=== PATIENT | male | born 1975 | race Caucasian/White ===

== ENCOUNTER 2021-01-29 20:17 | Emergency (ER) | payer OTHER ==
[2021-01-29] MEDS ORDERED: SODIUM CHLORIDE 0.9% 1,000 ML IV STA ×2 (20:45)
[2021-01-29 21:21] LABS: Basophils % (A) 1 %; Eosinophils % (A) 0 %; HCT 44.1 % (39.0-53.0); HGB 15.5 gm/dL (13.0-17.5); Lymphocytes # (A) 1.7 k/uL (1.0-4.8); Lymphocytes % (A) 31 %; MCH 31.1 pg (25.0-35.0); MCHC 35.1 g/dL (31.0-37.0); MCV 88.6 fL (80.0-100.0); Mean Platelet Volume 7.5; Monocytes # (A) 0.4 k/uL (0-1.0); Monocytes % (A) 7 %; Neutrophils # (A) 3.2 k/uL (1.3-7.7); Neutrophils % (A) 60 %; Platelet Count 129 k/uL (150-450); RBC 4.98 m/uL (4.30-5.90); RDW 12.1 % (11.5-15.5); WBC 5.4 k/uL (3.8-10.6)
--- NOTE | 2021-01-29 21:32 | ED ---
SOB HPI - General Chief Complaint: Shortness of Breath Stated Complaint: SOB/Covid Time Seen by Provider: 01/29/21 20:35 Source: patient Mode of arrival: ambulatory Limitations: no limitations - History of Present Illness Initial Comments: This is a 45-year-old male with a history of recent exposure to both his parents who have Covid 19 with his father being diagnosed week ago and his mother being diagnosed admitted yesterday who presents with complaints of 3 or 4 days of shortness of breath with a cough and some fatigue he feels that he has the same symptoms his parents had as he is a same symptoms he also has a some smell. He does have a history of heart disease. He has had CHF in the past. MD Complaint: shortness of breath - Related Data Allergies Allergy/AdvReac Type Severity Reaction Status Date / Time albuterol Allergy Swelling Verified 01/29/21 20:24 Review of Systems ROS Statement: Those systems with pertinent positive or pertinent negative responses have been documented in the HPI. ROS Other: All systems not noted in ROS Statement are negative. Past Medical History Past Medical History: Atrial Fibrillation, Heart Failure, Diabetes Mellitus Additional Past Medical History / Comment(s): Renal Cancer, blood clot in heart History of Any Multi-Drug Resistant Organisms: None Reported Past Surgical History: Cardiac Ablation, Orthopedic Surgery Past Psychological History: No Psychological Hx Reported Smoking Status: Former smoker Past Alcohol Use History: None Reported Past Drug Use History: None Reported General Exam - General Exam Comments Initial Comments: Is a well-developed well-nourished awake alert oriented times 3 male Limitations: no limitations General appearance: alert, in no apparent distress Head exam: Present: atraumatic, normocephalic, normal inspection Eye exam: Present: normal appearance, PERRL, EOMI. Absent: scleral icterus, conjunctival injection, periorbital swelling ENT exam: Present: mucous membranes dry Neck exam: Present: normal inspection. Absent: tenderness, meningismus, lymphadenopathy Respiratory exam: Present: decreased breath sounds. Absent: respiratory distress, wheezes, rales, rhonchi, stridor Cardiovascular Exam: Present: normal rhythm, tachycardia, normal heart sounds. Absent: systolic murmur, diastolic murmur, rubs, gallop, clicks GI/Abdominal exam: Present: soft, normal bowel sounds. Absent: distended, tenderness, guarding, rebound, rigid Extremities exam: Present: normal inspection, full ROM, normal capillary refill. Absent: tenderness, pedal edema, joint swelling, calf tenderness Back exam: Present: normal inspection Neurological exam: Present: alert, oriented X3, CN II-XII intact Psychiatric exam: Present: normal affect, normal mood Skin exam: Present: warm, dry, intact, normal color. Absent: rash Course Vital Signs 01/29/21 01/29/21 01/29/21 20:20 22:25 23:00 Temperature 99.6 F Pulse Rate 132 H 104 H 108 H Respiratory 22 20 18 Rate Blood Pressure 126/87 135/88 119/80 O2 Sat by Pulse 98 97 96 Oximetry Medical Decision Making - Medical Decision Making I did discuss Pfizer the patient x-rays negative d-dimer is negative and his saturations were in the 9798 range on room air. Patient is a candidate for discharge she will be getting the antibody Bamlanivimab. We did a long discussion regarding the findings and the possible side effects of the medi cation he is going to go ahead with that. - Lab Data Result diagrams: 01/29/21 21:08 01/29/21 21:08 Lab Results 01/29/21 01/29/21 01/29/21 Range/Units 21:08 21:08 21:08 WBC 5.4 (3.8-10.6) k/uL RBC 4.98 (4.30-5.90) m/uL Hgb 15.5 (13.0-17.5) gm/dL Hct 44.1 (39.0-53.0) % MCV 88.6 (80.0-100.0) fL MCH 31.1 (25.0-35.0) pg MCHC 35.1 (31.0-37.0) g/dL RDW 12.1 (11.5-15.5) % Plt Count 129 L (150-450) k/uL MPV 7.5 Neutrophils % 60 % Lymphocytes % 31 % Monocytes % 7 % Eosinophils % 0 % Basophils % 1 % Neutrophils # 3.2 (1.3-7.7) k/uL Lymphocytes # 1.7 (1.0-4.8) k/uL Monocytes # 0.4 (0-1.0) k/uL Eosinophils # 0.0 (0-0.7) k/uL Basophils # 0.0 (0-0.2) k/uL PT (9.0-12.0) sec INR (<1.2) APTT (22.0-30.0) sec D-Dimer (<0.60) mg/L FEU Sodium 131 L (137-145) mmol/L Potassium 3.9 (3.5-5.1) mmol/L Chloride 101 (98-107) mmol/L Carbon Dioxide 18 L (22-30) mmol/L Anion Gap 12 mmol/L BUN 16 (9-20) mg/dL Creatinine 1.09 (0.66-1.25) mg/dL Est GFR (CKD-EPI)AfAm >90 (>60 ml/min/1.73 sqM) Est GFR (CKD-EPI)NonAf 82 (>60 ml/min/1.73 sqM) Glucose 296 H (74-99) mg/dL Plasma Lactic Acid Prudencio 1.4 (0.7-2.0) mmol/L Calcium 8.6 (8.4-10.2) mg/dL Magnesium 1.6 (1.6-2.3) mg/dL Total Bilirubin 1.0 (0.2-1.3) mg/dL AST 169 H (17-59) U/L ALT 133 H (4-49) U/L Alkaline Phosphatase 87 (38-126) U/L Lactate Dehydrogenase 733 H (313-618) U/L Creatine Kinase 112 (55-170) U/L Troponin I (0.000-0.034) ng/mL C-Reactive Protein 14.3 H (<10.0) mg/L NT-Pro-B Natriuret Pep pg/mL Total Protein 6.9 (6.3-8.2) g/dL Albumin 4.0 (3.5-5.0) g/dL Coronavirus (PCR) (Not Detectd) 01/29/21 01/29/21 01/29/21 Range/Units 21:08 21:08 21:08 WBC (3.8-10.6) k/uL RBC (4.30-5.90) m/uL Hgb (13.0-17.5) gm/dL Hct (39.0-53.0) % MCV (80.0-100.0) fL MCH (25.0-35.0) pg MCHC (31.0-37.0) g/dL RDW (11.5-15.5) % Plt Count (150-450) k/uL MPV Neutrophils % % Lymphocytes % % Monocytes % % Eosinophils % % Basophils % % Neutrophils # (1.3-7.7) k/uL Lymphocytes # (1.0-4.8) k/uL Monocytes # (0-1.0) k/uL Eosinophils # (0-0.7) k/uL Basophils # (0-0.2) k/uL PT 10.0 (9.0-12.0) sec INR 0.9 (<1.2) APTT 26.6 (22.0-30.0) sec D-Dimer 0.28 (<0.60) mg/L FEU Sodium (137-145) mmol/L Potassium (3.5-5.1) mmol/L Chloride (98-107) mmol/L Carbon Dioxide (22-30) mmol/L Anion Gap mmol/L BUN (9-20) mg/dL Creatinine (0.66-1.25) mg/dL Est GFR (CKD-EPI)AfAm (>60 ml/min/1.73 sqM) Est GFR (CKD-EPI)NonAf (>60 ml/min/1.73 sqM) Glucose (74-99) mg/dL Plasma Lactic Acid Prudencio (0.7-2.0) mmol/L Calcium (8.4-10.2) mg/dL Magnesium (1.6-2.3) mg/dL Total Bilirubin (0.2-1.3) mg/dL AST (17-59) U/L ALT (4-49) U/L Alkaline Phosphatase (38-126) U/L Lactate Dehydrogenase (313-618) U/L Creatine Kinase (55-170) U/L Troponin I <0.012 (0.000-0.034) ng/mL C-Reactive Protein (<10.0) mg/L NT-Pro-B Natriuret Pep 103 pg/mL Total Protein (6.3-8.2) g/dL Albumin (3.5-5.0) g/dL Coronavirus (PCR) (Not Detectd) 01/29/21 Range/Units 21:08 WBC (3.8-10.6) k/uL RBC (4.30-5.90) m/uL Hgb (13.0-17.5) gm/dL Hct (39.0-53.0) % MCV (80.0-100.0) fL MCH (25.0-35.0) pg MCHC (31.0-37.0) g/dL RDW (11.5-15.5) % Plt Count (150-450) k/uL MPV Neutrophils % % Lymphocytes % % Monocytes % % Eosinophils % % Basophils % % Neutrophils # (1.3-7.7) k/uL Lymphocytes # (1.0-4.8) k/uL Monocytes # (0-1.0) k/uL Eosinophils # (0-0.7) k/uL Basophils # (0-0.2) k/uL PT (9.0-12.0) sec INR (<1.2) APTT (22.0-30.0) sec D-Dimer (<0.60) mg/L FEU Sodium (137-145) mmol/L Potassium (3.5-5.1) mmol/L Chloride (98-107) mmol/L Carbon Dioxide (22-30) mmol/L Anion Gap mmol/L BUN (9-20) mg/dL Creatinine (0.66-1.25) mg/dL Est GFR (CKD-EPI)AfAm (>60 ml/min/1.73 sqM) Est GFR (CKD-EPI)NonAf (>60 ml/min/1.73 sqM) Glucose (74-99) mg/dL Plasma Lactic Acid Prudencio (0.7-2.0) mmol/L Calcium (8.4-10.2) mg/dL Magnesium (1.6-2.3) mg/dL Total Bilirubin (0.2-1.3) mg/dL AST (17-59) U/L ALT (4-49) U/L Alkaline Phosphatase (38-126) U/L Lactate Dehydrogenase (313-618) U/L Creatine Kinase (55-170) U/L Troponin I (0.000-0.034) ng/mL C-Reactive Protein (<10.0) mg/L NT-Pro-B Natriuret Pep pg/mL Total Protein (6.3-8.2) g/dL Albumin (3.5-5.0) g/dL Coronavirus (PCR) Detected A (Not Detectd) - EKG Data -: EKG Interpreted by Me EKG Comments: Sinus tachycardia rate of 116. Interval 146 QRS duration 84 daily since QTC 340/472 with anterior fascicular block evidence of LVH - Radiology Data Radiology results: report reviewed (Imaging reviewed no acute findings.), image reviewed Disposition Clinical Impression: COVID-19, Viral syndrome Disposition: HOME SELF-CARE Condition: Good Instructions (If sedation given, give patient instructions): Coronavirus Disease 2019 (COVID-19) Additional Instructions: Vitamin C 1000 mg daily, vitamin D3 4-5000 units per day, zinc, adequate fluids and Tylenol for pain or symptoms. Is patient prescribed a controlled substance at d/c from ED?: No Referrals: None,Stated [REFERRING] - 1-2 days
[2021-01-29 21:39] LABS: ALT 133 U/L (4-49); AST 169 U/L (17-59); African American GFR (CKD) >90 (>60 ml/min/1.73 sqM); Alkaline Phosphatase 87 U/L (38-126); Anion Gap 12 mmol/L; Blood Urea Nitrogen 16 mg/dL (9-20); C Reactive Protein 14.3 mg/L (<10.0); Calcium 8.6 mg/dL (8.4-10.2); Carbon Dioxide 18 mmol/L (22-30); Chloride 101 mmol/L (98-107); Creatine Kinase 112 U/L (55-170); Glucose 296 mg/dL (74-99); LDH 733 U/L (313-618); Magnesium 1.6 mg/dL (1.6-2.3); Non-African American GFR(CKD) 82 (>60 ml/min/1.73 sqM); Potassium 3.9 mmol/L (3.5-5.1); Sodium 131 mmol/L (137-145); Total Protein 6.9 g/dL (6.3-8.2)
--- NOTE | 2021-01-29 21:54 | XR ---
EXAMINATION TYPE: XR chest 1V portable DATE OF EXAM: 01/29/2021 COMPARISON: NONE HISTORY: Short of breath TECHNIQUE: Kobe view FINDINGS: There is no heart failure nor confluent pneumonic infiltrate. Costophrenic angles are clear . Heart size is normal. Bony thorax is intact. IMPRESSION: No active cardiopulmonary disease.
[2021-01-29 22:15] LABS: D-Dimer 0.28 mg/L FEU (<0.60); INR 0.9 (<1.2); Partial Thromboplastin Time 26.6 sec (22.0-30.0)
[2021-01-29] MEDS ORDERED: BAMLANIVIMAB 700 MG in SODIUM CHLORIDE 0.9% 50 ML IVPB ONE (23:30)
[2021-01-29 23:53] VITALS: TEMP 98.2
[2021-01-30 01:42] VITALS: BP 119/86; PULSE 97; RESP 20
[2021-01-30 03:19] LABS: Ferritin 1428.9 ng/mL (22.0-322.0)
== END 2021-01-30 01:42 | disposition home or self-care (01) ==
LOC: EC 20:17
DX: U07.1 COVID-19 (principal); B34.9 Viral infection, unspecified; E11.9 Type 2 diabetes mellitus without complications; I48.91 Unspecified atrial fibrillation; I50.9 Heart failure, unspecified; Z85.528 Personal history of other malignant neoplasm of kidney; Z87.891 Personal history of nicotine dependence
CPT/HCPCS: 36415; 93005; 85379; 83880; 80053; 82728; 82550; 83605; 83615; 83735; 84484; 85025; 85610; 85730; 86140; 87040; 84145; 87635; 71045; 99285; 96374; 96361; Q0239

== ENCOUNTER 2023-05-25 03:33 | Inpatient (IN) | payer OTHER ==
[2023-05-25] MEDS ORDERED: SODIUM CHLORIDE 0.9% 1,000 ML IV STA (03:53)
[2023-05-25] MEDS ORDERED: MORPHINE SULFATE 4 MG/ML SYRINGE IV STA ×2 (03:53→04:57)
[2023-05-25] MEDS ORDERED: NITROGLYCERIN SL TABS 0.4 MG TAB SUBLINGUAL STA (03:53)
[2023-05-25] MEDS ORDERED: ASPIRIN 81 MG PO STA (03:53)
[2023-05-25 04:43] LABS: Basophils % (A) 0 %; Eosinophils # (A) 0.1 k/uL (0-0.7); Eosinophils % (A) 1 %; HCT 49.4 % (39.0-53.0); HGB 16.9 gm/dL (13.0-17.5); Lymphocytes # (A) 1.9 k/uL (1.0-4.8); Lymphocytes % (A) 23 %; MCH 29.7 pg (25.0-35.0); MCHC 34.3 g/dL (31.0-37.0); MCV 86.5 fL (80.0-100.0); Mean Platelet Volume 8.1; Monocytes # (A) 0.4 k/uL (0-1.0); Monocytes % (A) 5 %; Neutrophils # (A) 5.7 k/uL (1.3-7.7); Neutrophils % (A) 69 %; Platelet Count 176 k/uL (150-450); RBC 5.71 m/uL (4.30-5.90); WBC 8.3 k/uL (3.8-10.6)
[2023-05-25 04:55] LABS: ALT 67 U/L (4-49); AST 46 U/L (17-59); African American GFR (CKD) >90 (>60 ml/min/1.73 sqM); Albumin 4.2 g/dL (3.5-5.0); Alkaline Phosphatase 99 U/L (38-126); Anion Gap 15 mmol/L; Blood Urea Nitrogen 17 mg/dL (9-20); Calcium 9.4 mg/dL (8.4-10.2); Carbon Dioxide 13 mmol/L (22-30); Chloride 108 mmol/L (98-107); Glucose 306 mg/dL (74-99); INR 0.9 (<1.2); Magnesium 1.9 mg/dL (1.6-2.3); Non-African American GFR(CKD) 84 (>60 ml/min/1.73 sqM); Potassium 3.9 mmol/L (3.5-5.1); Prothrombin Time 9.6 sec (9.0-12.0); Sodium 136 mmol/L (137-145); Total Bilirubin 0.8 mg/dL (0.2-1.3); Total Protein 7.1 g/dL (6.3-8.2)
[2023-05-25] MEDS ORDERED: NITROGLYCERIN OINT 1 INCH/GM PACKET TOPICAL STA (04:57)
[2023-05-25] MEDS ORDERED: ONDANSETRON 4 MG/2 ML VIAL IVP STA (04:57)
[2023-05-25] MEDS ORDERED: INSULIN REGULAR 100 UNIT/ML VIAL (IV) SQ STA (04:58)
--- NOTE | 2023-05-25 06:41 | XR ---
EXAMINATION TYPE: XR chest 2V DATE OF EXAM: 05/25/2023 4:14 AM COMPARISON: Chest radiographs from 01/29/2021 TECHNIQUE: XR chest 2V Frontal and lateral views of the chest. CLINICAL INDICATION:Male, 47 years old with history of Chest Pain; FINDINGS: Lungs/Pleura: There is no evidence of pleural effusion, focal consolidation, or pneumothorax. Pulmonary vascularity: Unremarkable. Heart/mediastinum: Cardiomediastinal silhouette is unremarkable. Musculoskeletal: No acute osseous pathology. IMPRESSION: No acute cardiopulmonary disease/process. No significant change from prior examination.
--- NOTE | 2023-05-25 06:53 | CT ---
EXAMINATION TYPE: CT angio thor/abd pel aorta CT DLP: 2365.8 mGycm, Automated exposure control for dose reduction was used. DATE OF EXAM: 05/25/2023 6:16 AM COMPARISON: Chest radiograph of the same date. CLINICAL INDICATION:Male, 47 years old with history of pain, possible dissection; [facility], TECHNIQUE: Dissection protocol: Multiple axial CT images of the chest, abdomen, and pelvis were obtai niki prior and to the administration of IV contrast. 3-D reformats and maximum intensity projection fo rmat were performed on a separate workstation. Then the abdomen was scanned after administration of 1 00 cc of Isovue 370 IV contrast. FINDINGS: ARTERIAL VASCULATURE: The aorta is normal in course and caliber. There is no evidence of aortic disse ction, aneurysm or acute aortic injury. Great arch vessels patent and normal in course and caliber. T he celiac axis, SMA, and ROSALINO are widely patent. 2 renal arteries which are patent. The common iliac a rteries, external and internal iliac arteries are widely patent. Lungs/pleura: The lung parenchyma appears unremarkable. Heart: Within normal limits. No pericardial effusion. Mediastinum: No gross evidence of adenopathy. Lower Neck: No significant findings. Abdomen: Liver: Diffusely hypoattenuating. There is a 3.4 cm peripherally enhancing lesion within the posterio r right hepatic lobe (series 501, image 99). Gallbladder and Bile ducts: Unremarkable. Pancreas: Unremarkable. Spleen: Mildly enlarged measuring 14.5 cm in CC dimension. Adrenal glands: Unremarkable. Kidneys and Ureters: Unremarkable. No hydronephrosis. Stomach and Bowel: The stomach and small bowel are unremarkable. Colon is unremarkable. There is circ umferential wall thickening of the rectum without surrounding inflammatory changes. The appendix is w ithin normal limits. No evidence of bowel obstruction. Peritoneum: No evidence of pneumoperitoneum, free fluid, or adenopathy. Bladder: Unremarkable. Reproductive: Unremarkable. Abdominal wall/soft tissues: Unremarkable. Musculoskeletal: The osseous structures appear intact. Mild multilevel degenerative disc disease. IMPRESSION: 1. No evidence for thoracic aortic dissection or aneurysm. 2. Circumferential wall thickening of the rectum without surrounding inflammatory changes. Correlate for proctitis. 3. Mild splenomegaly. 4. Hepatic steatosis with a peripheral enhancing lesion within the right hepatic lobe. Probable heman gioma. This can be further evaluated with CT or MR abdomen (liver mass protocol).
[2023-05-25] MEDS ORDERED: NITROGLYCERIN SL TABS 0.4 MG TAB SUBLINGUAL PRN (07:54)
--- NOTE | 2023-05-25 08:03 | ED ---
Chest Pain HPI - General Chief Complaint: Chest Pain Stated Complaint: Chest Pain Time Seen by Provider: 05/25/23 03:40 Source: patient Mode of arrival: wheelchair Limitations: no limitations - History of Present Illness Initial Comments: This patient's 47-year-old man presenting evaluation for chest pain, substernal with radiation to the back had come on approximately 8 hours ago the patient was at rest there is no exertional component. He does not have any associated dyspnea, diaphoresis. There was some associated nausea. MD Complaint: chest pain Onset/Timin -: hour(s) Onset: during rest Pain Location: substernal Pain Radiation: back Severity: severe Quality: sharp Consistency: constant Improves With: nothing Worsens With: nothing Anginal Symptoms: nausea Treatments Prior to Arrival: none - Related Data Home Medications Medication Instructions Recorded Confirmed Apixaban [Eliquis] 5 mg PO BID 05/25/23 05/25/23 Atorvastatin [Lipitor] 10 mg PO DAILY 05/25/23 05/25/23 Cholecalciferol [Vitamin D3 (25 25 mcg PO DAILY 05/25/23 05/25/23 Mcg = 1000 Iu)] Cyanocobalamin (Vitamin B-12) 1,000 mcg PO DAILY 05/25/23 05/25/23 [Vitamin B-12] Empagliflozin [Jardiance] 25 mg PO DAILY 05/25/23 05/25/23 Fish Oil/Dha/Epa [Fish Oil 1,200 1 cap PO DAILY 05/25/23 05/25/23 mg Fish Oil] Gabapentin 600 mg PO TID PRN 05/25/23 05/25/23 HYDROcodone/APAP 5-325MG [Wadley 1 tab PO TID PRN 05/25/23 05/25/23 5-325] Insulin Aspart [NovoLOG Flexpen] 40 units SQ AC-SUPPER 05/25/23 05/25/23 Insulin Aspart [NovoLOG Flexpen] 60 units SQ AC-BRKFST 05/25/23 05/25/23 Insulin Glargine,Hum.rec.anlog 38 units SQ HS 05/25/23 05/25/23 [Lantus Solostar Pen] Metoprolol Succinate (ER) [Toprol 50 mg PO DAILY 05/25/23 05/25/23 XL] PARoxetine HCL [Paxil] 10 mg PO DAILY 05/25/23 05/25/23 hydrALAZINE HCL [Apresoline] 10 mg PO TID 05/25/23 05/25/23 hydrOXYzine pamoate [Vistaril] 25 mg PO QID PRN 05/25/23 05/25/23 methocarbamoL [Methocarbamol] 500 - 1,000 mg PO QID PRN 05/25/23 05/25/23 Previous Rx's Medication Instructions Recorded Amoxic-Pot Clav 875-125Mg 1 tab PO Q12HR 5 Days #10 tab 06/01/23 [Augmentin 875-125] HYDROcodone/APAP 5-325MG [Wadley 1 tab PO Q6HR PRN 3 Days #12 tab 06/01/23 5-325] Allergies Allergy/AdvReac Type Severity Reaction Status Date / Time No Known Allergies Allergy Verified 05/29/23 12:16 Review of Systems ROS Statement: Those systems with pertinent positive or pertinent negative responses have been documented in the HPI. ROS Other: All systems not noted in ROS Statement are negative. Constitutional: Denies: fever, chills Respiratory: Denies: cough, dyspnea Cardiovascular: Reports: chest pain. Denies: palpitations, orthopnea, edema, syncope Gastrointestinal: Reports: nausea. Denies: abdominal pain, vomiting, diarrhea, melena, hematochezia Genitourinary: Denies: dysuria, hematuria Musculoskeletal: Reports: back pain Skin: Denies: rash Neurological: Denies: headache, weakness EKG Findings - EKG Results: EKG: interpreted by ERMD, sinus rhythm (Rate 78 bpm), normal axis Past Medical History Past Medical History: Atrial Fibrillation, Heart Failure, Diabetes Mellitus Additional Past Medical History / Comment(s): Renal Cancer, blood clot in heart History of Any Multi-Drug Resistant Organisms: None Reported Past Surgical History: Cardiac Ablation, Orthopedic Surgery Past Psychological History: No Psychological Hx Reported Smoking Status: Former smoker Past Alcohol Use History: None Reported Past Drug Use History: None Reported General Exam Limitations: no limitations General appearance: alert, in no apparent distress Head exam: Present: atraumatic, normocephalic Eye exam: Present: normal appearance. Absent: scleral icterus, conjunctival injection ENT exam: Present: normal oropharynx Neck exam: Present: normal inspection, full ROM Respiratory exam: Present: normal lung sounds bilaterally. Absent: respiratory distress, wheezes, rales, rhonchi, stridor, accessory muscle use Cardiovascular Exam: Present: regular rate, normal rhythm, normal heart sounds. Absent: systolic murmur, diastolic murmur, rubs, gallop GI/Abdominal exam: Present: soft, tenderness (Mild epigastric tenderness, no rebound or guarding). Absent: distended, guarding, rebound, rigid, mass Extremities exam: Present: normal inspection, normal capillary refill. Absent: pedal edema, calf tenderness Back exam: Present: normal inspection. Absent: CVA tenderness (R), CVA tenderness (L) Neurological exam: Present: alert Skin exam: Present: warm, dry, intact, normal color. Absent: rash Course Vital Signs 05/25/23 05/25/23 05/25/23 03:36 04:00 04:15 Temperature 98 F Pulse Rate 86 83 66 Pulse Rate [ Pulse Oximetery ] Respiratory 18 25 H 22 Rate Blood Pressure 164/106 188/125 178/117 Blood Pressure [Right Arm] O2 Sat by Pulse 100 100 99 Oximetry 05/25/23 05/25/23 05/25/23 04:45 05:00 05:15 Temperature Pulse Rate 73 85 88 Pulse Rate [ Pulse Oximetery ] Respiratory 24 26 H 22 Rate Blood Pressure 141/78 128/98 143/103 Blood Pressure [Right Arm] O2 Sat by Pulse 100 100 100 Oximetry 05/25/23 05/25/23 05/25/23 07:41 09:02 09:57 Temperature Pulse Rate 88 82 78 Pulse Rate [ Pulse Oximetery ] Respiratory 18 18 18 Rate Blood Pressure 137/70 124/82 113/63 Blood Pressure [Right Arm] O2 Sat by Pulse 98 99 92 L Oximetry 05/25/23 05/25/23 05/25/23 11:00 14:00 16:00 Temperature Pulse Rate 68 74 70 Pulse Rate [ Pulse Oximetery ] Respiratory 18 18 18 Rate Blood Pressure 108/57 103/54 118/60 Blood Pressure [Right Arm] O2 Sat by Pulse 92 L 92 L 94 L Oximetry 05/25/23 18:55 Temperature 100.3 F H Pulse Rate Pulse Rate [ 85 Pulse Oximetery ] Respiratory 16 Rate Blood Pressure Blood Pressure 131/76 [Right Arm] O2 Sat by Pulse 97 Oximetry Chest Pain MDM - MDM The patient had chest x-ray which I interpreted as being negative for acute infiltrate, pneumothorax, congestive heart failure The patient had CT angiography of the chest, which I interpreted as not showing aortic dissection. This patient is a 47-year-old man who presented with substernal chest pain radiating to the back. The patient was also markedly hypertensive. In light of this he is sent for CT to rule out a dissection. The patient having risk factor will be admitted to have cardiology evaluation though the differential definitely includes noncardiac types of chest pain as well. Was pt. sent in by a medical professional or institution (, PA, INDUSTRIAL SOCIOLOGIST, urgent care, hospital, or longterm...) When possible be specific @ -[No] Did you speak to anyone other than the patient for history (EMS, parent, family, police, friend...)? What history was obtained from this source @ -[No] Did you review nursing and triage notes (agree or disagree)? Why? @ -[I reviewed and agree with nursing and triage notes] Were old charts reviewed (outside hosp., previous admission, EMS record, old EKG, old radiological studies, urgent care reports/EKG's, longterm records)? Report findings @ -[No old charts were reviewed] Differential Diagnosis (chest pain, altered mental status, abdominal pain women, abdominal pain men, vaginal bleeding, weakness, fever, dyspnea, syncope, headache, dizziness, GI bleed, back pain, seizure, CVA, palpatations, mental health, musculoskeletal)? @ -[Differential Chest Pain: Stable Angina, Unstable Angina, STEMI, NSTEMI Aortic Dissection, Pneumothorax, Musculoskeletal, Esophageal Spasm GERD, Cholecystitis, Pancreatitis, Zoster, this is not meant to be an all-inclusive list. EKG interpreted by me (3pts min.). @ -[As above] X-rays interpreted by me (1pt min.). @ -[As above CT interpreted by me (1pt min.). @ -[As above U/S interpreted by me (1pt. min.). @ -[None done] What testing was considered but not performed or refused? (CT, X-rays, U/S, labs)? Why? @ -[None] What meds were considered but not given or refused? Why? @ -[None] Did you discuss the management of the patient with other professionals (professionals i.e. , PA, INDUSTRIAL SOCIOLOGIST, lab, RT, psych nurse, elementary school social worker, squeezer operator, teacher, juvenile detention officer, nurse case management)? Give summary @ -[Case D/W admitting service Was smoking cessation discussed for >3mins.? @ -[No] Was critical care preformed (if so, how long)? @ -[No] Were there social determinants of health that impacted care today? How? (Homelessness, low income, unemployed, alcoholism, drug addiction, transportation, low edu. Level, literacy, decrease access to med. care, fpc, rehab)? @ -[No] Was there de-escalation of care discussed even if they declined (Discuss DNR or withdrawal of care, Hospice)? DNR status @ -[No] What co-morbidities impacted this encounter? (DM, HTN, Smoking, COPD, CAD, Cancer, CVA, ARF, Chemo, Hep., AIDS, mental health diagnosis, sleep apnea, morbid obesity)? @ -[None] Was patient admitted / discharged? Hospital course, mention meds given and route, prescriptions, significant lab abnormalities, going to OR and other pertinent info. @ -[Admitted to have serial cardiac enzymes, telemetry monitoring, cardiology consultation Undiagnosed new problem with uncertain prognosis? @ -[No] Drug Therapy requiring intensive monitoring for toxicity (Heparin, Nitro, Insulin, Cardizem)? @ -[No] Were any procedures done? @ -[No] Diagnosis/symptom? @ -[Acute chest pain, uncomplicated Hypertension, acute on chronic Acute, or Chronic, or Acute on Chronic? @ -[default] Uncomplicated (without systemic symptoms) or Complicated (systemic symptoms)? @ -[Uncomplicated Side effects of treatment? @ -[No] Exacerbation, Progression, or Severe Exacerbation? @ -[No] Poses a threat to life or bodily function? How? (Chest pain, [place], [place], pneumonia, PE, COPD, DKA, ARF, appy, cholecystitis, CVA, Diverticulitis, Homicidal, Suicidal, threat to staff... and all critical care pts) @ -[Chest pain of unknown etiology may be cardiac related, this requires further evaluation to ensure no life-threatening process Disposition Clinical Impression: Chest pain Disposition: ADMITTED IP TO THIS [facility] Condition: Stable
[2023-05-25] MEDS ORDERED: hydrOXYzine pamoate 25 MG CAP PO PRN (08:51)
[2023-05-25] MEDS ORDERED: GABAPENTIN 300 MG CAP PO PRN (08:51)
[2023-05-25] MEDS ORDERED: ASPIRIN 81 MG PO SCH (09:00)
[2023-05-25] MEDS: HYDROcodone/APAP 5-325MG 1 EACH TAB PO PRN ×3 (09:00→20:01)
[2023-05-25] MEDS: APIXABAN 5 MG TAB PO SCH ×2 (09:58→20:02)
[2023-05-25] MEDS: ATORVASTATIN 10 MG TAB PO SCH (09:58)
[2023-05-25] MEDS: METOPROLOL SUCCINATE (ER) 50 MG TAB.ER.24H PO SCH (09:59)
[2023-05-25] MEDS: PARoxetine 10 MG TAB PO SCH (09:59)
[2023-05-25 11:03] LABS: Glucose,Whole Blood 165 mg/dL (70-110)
--- NOTE | 2023-05-25 12:02 | P.CRDCN ---
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 fib ablation, a rather extensive 1 but successful He maintains sinus rhythm At that time a left atrial appendage thrombus was also noted and he was anticoagulated for this and subsequently underwent successful A. fib ablation Follow-up cardiac MRI revealed an ejection fraction of 41%, following jainism of sinus rhythm He states that he has had renal failure and renal cancer His follow-up 2-D echo shows ejection fraction of 45-50%. He is on metoprolol succinate He is also ELIQUIS Emphasized the importance of continuing with these medications Cardiac enzymes are normal EKG is normal No evidence for acute myocardial infarction The pain appears thoracic but noncardiac in nature Recommend follow-up with primary care physician as an outpatient and continue beta blockers and ELIQUIS HISTORY OF PRESENT ILLNESS: This is a 47-year-old male with a reported past medical history of atrial fibrillation, kidney cancer, cardiomyopathy, congestive heart failure, and diabetes. 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 He had his previous cardiac workup performed in [place]. We have been asked to see the patient in consultation for chest pain. Patient examined at the bedside. Patient states he has been having chest pain for the past 24 hours. He states that he gets pains like this in the past but they usually do not last this long. He denies any radiation of the pain. Denies any shortness of breath. Denies any nausea or vomiting. The patient reports he was told he had an ejection fraction of 10% in the past. He thinks he had a cardiac catheterization but cannot remember when this was. He states that he is supposed to have a "full body scan" in June at the [facility] secondary to his kidney cancer. * EKG reveals sinus mechanism with no signs of acute ischemia * Chest xray negative for acute process. * Laboratory data: WBC BC 8.3. Hemoglobin 16.9. Platelet count 176. D-dimer 0.31. Sodium 136. Potassium 3.9. BUN 17. Creatinine 1.06. Troponin negative 2. * Current home cardiac medications include Eliquis 5mg BID, hydralazine 10 mg 2 times a day, atorvastatin 10 mg daily REVIEW OF SYSTEMS: At the time of my exam: CONSTITUTIONAL: Denies fever or chills. HEENT: Denies blurred vision, vision changes, or eye pain. Denies hemoptysis CARDIOVASCULAR: Denies chest pain. Denies orthopnea. Denies PND. Denies palpitations RESPIRATORY: Denies shortness of breath. GASTROINTESTINAL: Denies abdominal pain. Denies nausea or vomiting. HEMATOLOGIC: Denies bleeding disorders. GENITOURINARY: Denies any blood in urine. SKIN: Denies pruitis. Denies rash. PHYSICAL EXAM: VITAL SIGNS: Reviewed. GENERAL: Well-developed in no acute distress. HEENT: Head is normocephalic. Pupils are equal, round. Sclerae anicteric. Mucous membranes of the mouth are moist. Neck supple. No JVD or thyromegaly LUNGS: Respirations even and unlabored. Lungs essentially clear to auscultation bilaterally. HEART: Regular rate and rhythm. S1 and S2 heard. ABDOMEN: Soft. Nondistended. Nontender. EXTREMITIES: Normal range of motion. No clubbing or cyanosis. Peripheral pulse s intact. No lower extremity edema NEUROLOGIC: Awake and alert. Oriented x 3. ASSESSMENT: Chest pain, troponin negative x 2 Kidney cancer, per patient Atrial fibrillation, per patient, type unknown Cardiomyopathy, per patient, type unknown Hyperlipidemia Diabetes PLAN: An acute coronary event has been ruled out Obtain 2D echo to assess cardiac structure and function Resume home cardiac medications Obtain medical records from patients previous hospitalizations in [place] Further recommendations pending patient course Nurse practitioner note has been reviewed by physician. Signing provider agrees with the documented findings, assessment, and plan of care. Past Medical History Past Medical History: Atrial Fibrillation, Heart Failure, Diabetes Mellitus Additional Past Medical History / Comment(s): Renal Cancer, blood clot in heart History of Any Multi-Drug Resistant Organisms: None Reported Past Surgical History: Cardiac Ablation, Orthopedic Surgery Past Psychological History: No Psychological Hx Reported Smoking Status: Former smoker Past Alcohol Use History: None Reported Past Drug Use History: None Reported Medications and Allergies Home Medications Medication Instructions Recorded Confirmed Type Apixaban [Eliquis] 5 mg PO BID 05/25/23 05/25/23 History Atorvastatin [Lipitor] 10 mg PO DAILY 05/25/23 05/25/23 History Cholecalciferol [Vitamin D3 (25 25 mcg PO DAILY 05/25/23 05/25/23 History Mcg = 1000 Iu)] Cyanocobalamin (Vitamin B-12) 1,000 mcg PO DAILY 05/25/23 05/25/23 History [Vitamin B-12] Empagliflozin [Jardiance] 25 mg PO DAILY 05/25/23 05/25/23 History Fish Oil/Dha/Epa [Fish Oil 1,200 1 cap PO DAILY 05/25/23 05/25/23 History mg Fish Oil] Gabapentin 600 mg PO TID PRN 05/25/23 05/25/23 History HYDROcodone/APAP 5-325MG [[place] 1 tab PO TID PRN 05/25/23 05/25/23 History 5-325] Insulin Aspart [NovoLOG Flexpen] 40 units SQ AC-SUPPER 05/25/23 05/25/23 History Insulin Aspart [NovoLOG Flexpen] 60 units SQ AC-BRKFST 05/25/23 05/25/23 History Insulin Glargine,Hum.rec.anlog 38 units SQ HS 05/25/23 05/25/23 History [Lantus Solostar Pen] Metoprolol Succinate (ER) [Toprol 50 mg PO DAILY 05/25/23 05/25/23 History Xl] PARoxetine HCL [Paxil] 10 mg PO DAILY 05/25/23 05/25/23 History hydrALAZINE HCL [Apresoline] 10 mg PO TID 05/25/23 05/25/23 History hydrOXYzine pamoate [Vistaril] 25 mg PO QID PRN 05/25/23 05/25/23 History methocarbamoL [Methocarbamol] 500 - 1,000 mg PO QID PRN 05/25/23 05/25/23 History Allergies Allergy/AdvReac Type Severity Reaction Status Date / Time albuterol Allergy Swelling Verified 05/25/23 08:11 Physical Exam Vitals: Vital Signs Temp Pulse Resp BP Pulse Ox 05/25/23 09:02 82 18 124/82 99 05/25/23 07:41 88 18 137/70 98 05/25/23 05:15 88 22 143/103 100 05/25/23 05:00 85 26 H 128/98 100 05/25/23 04:45 73 24 141/78 100 05/25/23 04:15 66 22 178/117 99 05/25/23 04:00 83 25 H 188/125 100 05/25/23 03:36 98 F 86 18 164/106 100 Intake and Output 05/24/23 05/25/23 05/25/23 22:59 06:59 14:59 Other: Weight 108.862 kg Results 05/25/23 04:06 05/25/23 04:06 Cardiac Enzymes 05/25/23 05/25/23 Range/Units 04:06 04:06 AST 46 (17-59) U/L Troponin I <0.012 (0.000-0.034) ng/mL Coagulation 05/25/23 Range/Units 04:06 PT 9.6 (9.0-12.0) sec APTT 24.0 (22.0-30.0) sec CBC 05/25/23 Range/Units 04:06 WBC 8.3 (3.8-10.6) k/uL RBC 5.71 (4.30-5.90) m/uL Hgb 16.9 (13.0-17.5) gm/dL Hct 49.4 (39.0-53.0) % Plt Count 176 (150-450) k/uL Comprehensive Metabolic Panel 05/25/23 Range/Units 04:06 Sodium 136 L (137-145) mmol/L Potassium 3.9 (3.5-5.1) mmol/L Chloride 108 H (98-107) mmol/L Carbon Dioxide 13 L (22-30) mmol/L BUN 17 (9-20) mg/dL Creatinine 1.06 (0.66-1.25) mg/dL Glucose 306 H (74-99) mg/dL Calcium 9.4 (8.4-10.2) mg/dL AST 46 (17-59) U/L ALT 67 H (4-49) U/L Alkaline Phosphatase 99 (38-126) U/L Total Protein 7.1 (6.3-8.2) g/dL Albumin 4.2 (3.5-5.0) g/dL Current Medications Generic Name Dose Route Start Last Admin Trade Name Freq PRN Reason Stop Dose Admin Hydrocodone Bitart/Acetaminophen 1 each 05/25/23 08:51 05/25/23 09:00 Hydrocodone/Apap 5-325mg 1 Each Tab PO 1 each TID PRN Administration Pain Apixaban 5 mg 05/25/23 09:00 Apixaban 5 Mg Tab PO BID [facility] Protocol Aspirin 81 mg 05/25/23 09:00 Aspirin 81 Mg PO DAILY [facility] Atorvastatin Calcium 10 mg 05/25/23 09:00 Atorvastatin 10 Mg Tab PO DAILY [facility] Gabapentin 600 mg 05/25/23 08:51 Gabapentin 300 Mg Cap PO TID PRN Pain Hydralazine HCl 10 mg 05/25/23 09:00 Hydralazine Hcl 10 Mg Tab PO TID [facility] Hydroxyzine Pamoate 25 mg 05/25/23 08:51 Hydroxyzine Pamoate 25 Mg Cap PO QID PRN Anxiety Sodium Chloride 1,000 mls @ 75 mls/hr 05/25/23 03:53 05/25/23 04:05 Saline 0.9% IV 05/25/23 17:12 75 mls/hr .[id number] STA Administration Metoprolol Succinate 50 mg 05/25/23 09:00 Metoprolol Succinate (Er) 50 Mg Tab.Er.24h PO DAILY [facility] Nitroglycerin 0.4 mg 05/25/23 07:54 Nitroglycerin Sl Tabs 0.4 Mg Tab SUBLINGUAL Q5M PRN Chest Pain Paroxetine HCl 10 mg 05/25/23 09:00 Paroxetine 10 Mg Tab PO DAILY [facility] Intake and Output 05/24/23 05/25/23 05/25/23 22:59 06:59 14:59 Other: Weight 108.862 kg 05/25/23 04:06 05/25/23 04:06
[2023-05-25] MEDS: hydrALAZINE HCL 10 MG TAB PO SCH ×3 (12:08→20:49)
--- NOTE | 2023-05-25 12:34 | P.HPIM ---
History of Present Illness H&P Date: 05/25/23 History of Presenting Illness: Patient is a very pleasant 47-year-old male with a past medical history of renal cancer, type 2 oof-nealaom-pgoeanbhu diabetes mellitus, hypertension, hyperlipidemia, atrial fibrillation status post cardiac ablation on anticoa gulation with Eliquis, and anxiety. He presented to the emergency department with a chief complaint of chest pain. Patient reports sudden onset of severe pain to midsternal chest radiating into his back. Patient reports this pain came on at rest and has been a constant sharp pressure sensation associated with nausea. Patient denies experiencing any headache, lightheadedness, dizziness, palpitations, shortness of breath, cough or congestion, abdominal pain, vomiting, or experiencing any numbness/tingling/weakness/swelling in his extremities. Patient underwent full evaluation in the emergency department and upon arrival vital signs obtained showing blood pressure 164/106, heart rate 86, respiratory rate 18, temp 98.0F, and SpO2 of 100% on room air. EKG completed showing normal sinus rhythm at 78 bpm with no significant T-wave or ST abnormalities upon personal review and interpretation. X-ray completed lungs appear clear and radiology report stating negative for acute cardiopulmonary process. CTA thoracic/abdominal/pelvic aorta completed and radiology report reviewed stating no evidence for thoracic aortic dissection or aneurysm, circumferential wall thickening of the rectum without surrounding inflammatory changes, mild splenomegaly, and hepatic steatosis with a peripheral enhancing lesion within the right hepatic lobe likely hemangioma recommend further evaluation with CT or MR abdomen. Labs completed and reviewed. CBC and coagulation profile unremarkable. BMP revealing mild acidosis with chloride 108, bicarb 13, and anion gap of 15. Hyperglycemia with glucose of 306. Liver profile revealing elevated ALT is 67. Troponin negative at less than 0.012. D- dimer negative at 0.31. Acetone negative. Discussed with ED physician and facility environmental technician in detail. Patient being admitted under our services to observation unit with telemetry. Consult placed to both cardiology and hematology/oncology. Review of systems: Pertinent positives and negatives as discussed in HPI, a complete review of systems was performed and all other systems are negative. Physical exam: Vital signs reviewed and stable. General: Nontoxic, no distress and appears stated age. Obese. Derm: Skin warm and dry, normal coloration for ethnicity. Head: Atraumatic, normocephalic and symmetric. Eyes: EOMs intact, no lid lag, and anicteric sclera Mouth: no lip lesions, mucus membranes moist Cardiovascular: regular rate and rhythm with normal S1S2, no murmur, positive posterior tibial pulses bilaterally, and cap refill < 2 seconds. Lungs: Respirations even, regular, and unlabored on room air. Lungs CTA bilaterally, no rhonchi, no rales, no wheezing, and no accessory muscle usage. Abdominal: soft, diffuse abdominal tenderness upon palpation worse and epigastric region, no guarding, no appreciable organomegaly Ext: ROM intact. No gross muscle atrophy, no edema, no contractures Neuro: Speech clear, face symmetrical and CN II-XII grossly intact with no noted focal neuro deficits Psych: Alert and oriented to person, place, time, and situation. Appropriate and pleasant affect. Assessment and Plan of Care: Chest pain, rule out acute coronary event Epigastric pain/discomfort with nausea Abnormal CT, concerns of right hepatic lobe hemangioma versus metastatic lesion -Upon arrival to our facility vital signs as follows: 164/106, heart rate 86, respiratory rate 18, temp 98.0F, and SpO2 of 100% on room air. -EKG completed showing normal sinus rhythm at 78 bpm with no significant T-wave or ST abnormalities upon personal review and interpretation. -X-ray completed lungs appear clear and radiology report stating negative for acute cardiopulmonary process. -CTA thoracic/abdominal/pelvic aorta completed and radiology report reviewed stating no evidence for thoracic aortic dissection or aneurysm, circumferential wall thickening of the rectum without surrounding inflammatory changes, mild splenomegaly, and hepatic steatosis with a peripheral enhancing lesion within the right hepatic lobe likely hemangioma recommend further evaluation with CT or MR abdomen. -Labs completed and reviewed. CBC and coagulation profile unremarkable. BMP revealing mild acidosis with chloride 108, bicarb 13, and anion gap of 15. Hyperglycemia with glucose of 306. Liver profile revealing elevated ALT is 67. Troponin negative at less than 0.012. D-dimer negative at 0.31. Acetone negative. -Cardiology consulted, appreciate further recommendations -Hematology/oncology consulted secondary to concerns of metastatic lesion/hemangioma of right upper lobe of liver with history of renal cancer. -Telemetry monitoring -Trend troponins -Cardiac diet -Continue cardiac medication regimen with Eliquis 5 mg by mouth twice daily, Aspirin 81 mg daily, atorvastatin 10 mg daily, hydralazine 10 mg 3 times daily and metoprolol 50 mg daily. -Lipid profile with a.m. labs. -Echocardiogram Hypertension, poorly controlled -Continue daily medication regimen with hydralazine 10 mg every 8 hours, metoprolol 50 mg daily, Type II mhz-poqghck-osaufupvy diabetes mellitus with hyperglycemia -Hold Juardiance and patient placed on glycemic protocol with NovoLog sliding scale to obtain tight glycemic control throughout hospitalization. -Obtain hemoglobin A1c. The patient is admitted with an anticipated less than 2 midnight stay for evaluation of chest pain CODE STATUS: Full code DVT prophylaxis: Eliquis Discussed with: Patient, patient's family at bedside, ED physician, facility environmental technician, and RN Anticipated discharge date: 24-[address]: Home Patient was seen independently by Nurse Practitioner. This document was prepared using [employer] dictation software. Please allow for errors in senior sous chef while rare they do occur. Julio C Motta NP rendered care for this patient independently, reviewed the findings and plan as documented in the note above. I did not physically speak with or examine the patient on this date. Past Medical History Past Medical History: Atrial Fibrillation, Heart Failure, Diabetes Mellitus Additional Past Medical History / Comment(s): Renal Cancer, blood clot in heart History of Any Multi-Drug Resistant Organisms: None Reported Past Surgical History: Cardiac Ablation, Orthopedic Surgery Past Psychological History: No Psychological Hx Reported Smoking Status: Former smoker Past Alcohol Use History: None Reported Past Drug Use History: None Reported Medications and Allergies Home Medications Medication Instructions Recorded Confirmed Type Apixaban [Eliquis] 5 mg PO BID 05/25/23 05/25/23 History Atorvastatin [Lipitor] 10 mg PO DAILY 05/25/23 05/25/23 History Cholecalciferol [Vitamin D3 (25 25 mcg PO DAILY 05/25/23 05/25/23 History Mcg = 1000 Iu)] Cyanocobalamin (Vitamin B-12) 1,000 mcg PO DAILY 05/25/23 05/25/23 History [Vitamin B-12] Empagliflozin [Jardiance] 25 mg PO DAILY 05/25/23 05/25/23 History Fish Oil/Dha/Epa [Fish Oil 1,200 1 cap PO DAILY 05/25/23 05/25/23 History mg Fish Oil] Gabapentin 600 mg PO TID PRN 05/25/23 05/25/23 History HYDROcodone/APAP 5-325MG [[place] 1 tab PO TID PRN 05/25/23 05/25/23 History 5-325] Insulin Aspart [NovoLOG Flexpen] 40 units SQ AC-SUPPER 05/25/23 05/25/23 History Insulin Aspart [NovoLOG Flexpen] 60 units SQ AC-BRKFST 05/25/23 05/25/23 History Insulin Glargine,Hum.rec.anlog 38 units SQ HS 05/25/23 05/25/23 History [Lantus Solostar Pen] Metoprolol Succinate (ER) [Toprol 50 mg PO DAILY 05/25/23 05/25/23 History Xl] PARoxetine HCL [Paxil] 10 mg PO DAILY 05/25/23 05/25/23 History hydrALAZINE HCL [Apresoline] 10 mg PO TID 05/25/23 05/25/23 History hydrOXYzine pamoate [Vistaril] 25 mg PO QID PRN 05/25/23 05/25/23 History methocarbamoL [Methocarbamol] 500 - 1,000 mg PO QID PRN 05/25/23 05/25/23 History Allergies Allergy/AdvReac Type Severity Reaction Status Date / Time albuterol Allergy Swelling Verified 05/25/23 08:11 Physical Exam Vitals: Vital Signs Temp Pulse Resp BP Pulse Ox 05/25/23 07:41 88 18 137/70 98 05/25/23 05:15 88 22 143/103 100 05/25/23 05:00 85 26 H 128/98 100 05/25/23 04:45 73 24 141/78 100 05/25/23 04:15 66 22 178/117 99 05/25/23 04:00 83 25 H 188/125 100 05/25/23 03:36 98 F 86 18 164/106 100 Intake and Output 05/24/23 05/25/23 05/25/23 22:59 06:59 14:59 Other: Weight 108.862 kg Results CBC & Chem 7: 05/27/23 05:57 05/27/23 05:57 Labs: Abnormal Lab Results - Last 24 Hours (Table) 05/25/23 Range/Units 04:06 Sodium 136 L (137-145) mmol/L Chloride 108 H (98-107) mmol/L Carbon Dioxide 13 L (22-30) mmol/L Glucose 306 H (74-99) mg/dL ALT 67 H (4-49) U/L
[2023-05-25] MEDS ORDERED: MAG HYDROX/AL HYDROX/SIMETH 30 ML, HYOSCYAMINE ELIXIR 10 ML, LIDOCAINE VISCOUS 10 ML PO ONE ×6 (13:00→18:00)
--- NOTE | 2023-05-25 13:06 | CA ---
Transthoracic Echo Report Name: Ev Giraldo Age: 47 Gender: M : 1975 Exam Date: 05/25/2023 10:07 Exam Location: [place] [facility] Ht (in): 74 Wt (lb): 240 Ordering Physician: Ellen Suh Attending/Referring Phys: [id number], Angeli Tassel Making Machine Operator Darrell Urbano Procedure CPT: Indications: LV function, CP Cardiac Hx: Technical Quality: Technically difficult study Contrast 1: Lumason Total Dose (mL): 1 Contrast 2: Agitated Saline Total Dose (mL): 1 MEASUREMENTS (Male / Female) Normal Values 2D ECHO LV Diastolic Diameter PLAX 4.2 cm 4.2 - 5.9 / 3.9 - 5.3 cm LV Systolic Diameter PLAX 2.6 cm IVS Diastolic Thickness 1.2 cm 0.6 - 1.0 / 0.6 - 0.9 cm LVPW Diastolic Thickness 1.2 cm 0.6 - 1.0 / 0.6 - 0.9 cm LV Relative Wall Thickness 0.6 RV Internal Dim ED PLAX 2.9 cm LVOT Diameter 2.5 cm Aortic Root Diameter 2.7 cm LA Systolic Diameter LX 3.1 cm 3.0 - 4.0 / 2.7 - 3.8 cm LV Diastolic Volume MOD BP 69.2 cm??? 67 - 155 / 56 - 104 cm??? LV Systolic Volume MOD BP 51.1 cm??? 22 - 58 / 19 - 49 cm??? LV Ejection Fraction MOD BP 26.2 % >= 55 % LV Diastolic Volume MOD 4C 73.8 cm??? LV Systolic Volume MOD 4C 54.0 cm??? LV Ejection Fraction MOD 4C 26.7 % LV Diastolic Length 4C 8.2 cm LV Systolic Length 4C 6.9 cm LV Diastolic Volume MOD 2C 60.4 cm??? LV Systolic Volume MOD 2C 35.6 cm??? LV Ejection Fraction MOD 2C 41.0 % LV Diastolic Length 2C 7.6 cm LV Systolic Length 2C 5.9 cm LA Volume 44.2 cm??? 18 - 58 / 22 - 52 cm??? Ascending Aorta Diameter 2.8 cm DOPPLER AV Peak Velocity 95.5 cm/s AV Peak Gradient 3.6 mmHg LVOT Peak Velocity 66.1 cm/s LVOT Peak Gradient 1.7 mmHg AV Area Cont Eq pk 3.3 cm??? MV Peak Velocity 88.0 cm/s MV Peak Gradient 3.1 mmHg MV Mean Velocity 42.0 cm/s MV Mean Gradient 0.9 mmHg MV Velocity Time Integral 28.9 cm Mitral E Point Velocity 64.9 cm/s Mitral A Point Velocity 45.1 cm/s Mitral E to A Ratio 1.4 MV Deceleration Time 234.1 ms TR Peak Velocity 149.1 cm/s TR Peak Gradient 8.9 mmHg Right Ventricular Systolic Press 13.9 mmHg PV Peak Velocity 84.0 cm/s PV Peak Gradient 2.8 mmHg FINDINGS Left Ventricle Normal LV size. Left ventricular ejection fraction is estimated at _40-45 %. Right Ventricle Normal right ventricular size. Right Atrium Normal right atrial size. Left Atrium Normal left atrial size. Mitral Valve Structurally normal mitral valve. No mitral regurgitation. No mitral stenosis. Aortic Valve Trileaflet aortic valve. No aortic valve stenosis or regurgitation. Tricuspid Valve Structurally normal tricuspid valve. Trace TR. Pulmonic Valve Pulmonic valve not well visualized. Trace PI. Pericardium Not well visualized. Grossly normal. Aorta Aortic root and proximal ascending aorta not well visualized. CONCLUSIONS Normal LV size and ejection fraction 40 - 45%, global dilated RV Previewed by: Dr. Donell Michele MD (Electronically Signed) Final Date: 25 May 2023 13:05
[2023-05-25] MEDS ORDERED: DEXTROSE 50% SYRINGE 50 ML IVP PRN ×2 (17:54)
[2023-05-25 18:33] LABS: Glucose,Whole Blood 248 mg/dL (70-110)
[2023-05-25 20:25] LABS: Glucose,Whole Blood 279 mg/dL (70-110)
[2023-05-25] MEDS: INSULIN ASPART (NovoLOG) 100 UNIT/ML VIAL SQ SCH (20:49)
[2023-05-26] MEDS: HYDROcodone/APAP 5-325MG 1 EACH TAB PO PRN ×2 (02:10→11:15)
[2023-05-26] MEDS: ACETAMINOPHEN TAB 325 MG TAB PO PRN ×3 (02:38→21:17)
[2023-05-26 06:17] LABS: Glucose,Whole Blood 163 mg/dL (70-110)
[2023-05-26] MEDS: INSULIN ASPART (NovoLOG) 100 UNIT/ML VIAL SQ SCH ×4 (06:27→20:40)
[2023-05-26] MEDS ORDERED: ASPIRIN 325 MG TAB PO SCH (09:00)
[2023-05-26 09:53] LABS: Chol/HDL Ratio 2.82 Ratio; LDL Cholesterol,Calculated 51.8 mg/dL (0.0-131.0); VLDL Calculation 12.84 mg/dL (5.00-40.00)
[2023-05-26] MEDS: PARoxetine 10 MG TAB PO SCH (11:11)
[2023-05-26] MEDS: METOPROLOL SUCCINATE (ER) 50 MG TAB.ER.24H PO SCH (11:11)
[2023-05-26] MEDS: APIXABAN 5 MG TAB PO SCH ×2 (11:11→20:21)
[2023-05-26] MEDS: hydrALAZINE HCL 10 MG TAB PO SCH ×3 (11:11→20:21)
[2023-05-26] MEDS: ATORVASTATIN 10 MG TAB PO SCH (11:11)
[2023-05-26 12:29] LABS: Glucose,Whole Blood 225 mg/dL (70-110)
--- NOTE | 2023-05-26 13:03 | P.PN ---
Subjective HISTORY OF PRESENT ILLNESS: This is a 47-year-old male with a reported past medical history of atrial fibrillation, kidney cancer, cardiomyopathy, congestive heart failure, and diabetes. Patient states he recently moved to the area and does not follow with a rn embedded. He had his previous cardiac workup performed in [place]. We have been asked to see the patient in consultation for chest pain. Patient examined at the bedside. Patient states he has been having chest pain for the past 24 hours. He states that he gets pains like this in the past but they usually do not last this long. He denies any radiation of the pain. Denies any shortness of breath. Denies any nausea or vomiting. The patient reports he was told he had an ejection fraction of 10% in the past. He thinks he had a cardiac catheterization but cannot remember when this was. He states that he is supposed to have a "full body scan" in June at the [facility] secondary to his kidney cancer. * EKG reveals sinus mechanism with no signs of acute ischemia * Chest xray negative for acute process. * Laboratory data: WBC BC 8.3. Hemoglobin 16.9. Platelet count 176. D-dimer 0.31. Sodium 136. Potassium 3.9. BUN 17. Creatinine 1.06. Troponin negative 2. * Current home cardiac medications include Eliquis 5mg BID, hydralazine 10 mg 2 times a day, atorvastatin 10 mg daily Addendum per Dr. Michele: 47-year-old male patient presenting with recurrent chest discomfort History this discomfort seems to travel around his chest wall/thoracic cavity Yesterday his chest pain was more anterior today he points to the right lateral aspect of his chest wall No respiratory distress looks very comfortable He is moved from [place] and I reviewed his cardiac data from [place] In 2019 he had a severe cardio myopathy ejection fraction 20-25% At that time he had atrial fibrillation and it was deemed that this was atrial fibrillation mediated cardio myopathy He underwent coronary angiography which revealed normal coronary arteries at that time He underwent an A. fib ablation, a rather extensive 1 but successful He maintains sinus rhythm At that time a left atrial appendage thrombus was also noted and he was anticoagulated for this and subsequently underwent successful A. fib ablation Follow-up cardiac MRI revealed an ejection fraction of 41%, following judaism of sinus rhythm He states that he has had renal failure and renal cancer His follow-up 2-D echo shows ejection fraction of 45-50%. He is on metoprolol succinate He is also ELIQUIS Emphasized the importance of continuing with these medications Cardiac enzymes are normal EKG is normal No evidence for acute myocardial infarction The pain appears thoracic but noncardiac in nature Recommend follow-up with primary care physician as an outpatient and continue beta blockers and ELIQUIS 05/26/2023 Patient examined this morning at the bedside. Patient denies shortness of breath. He reports pain of his right lateral aspect of his chest wall. Vital signs are stable. Echocardiogram completed revealing ejection fraction of 45- 50%. Records from [place] obtained and are as above. PHYSICAL EXAM: VITAL SIGNS: Reviewed. GENERAL: Well-developed in no acute distress. HEENT: Head is normocephalic. Pupils are equal, round. Sclerae anicteric. Mucous membranes of the mouth are moist. Neck supple. No JVD or thyromegaly LUNGS: Respirations even and unlabored. Lungs essentially clear to auscultation bilaterally. HEART: Regular rate and rhythm. S1 and S2 heard. ABDOMEN: Soft. Nondistended. Nontender. EXTREMITIES: Normal range of motion. No clubbing or cyanosis. Peripheral pulses intact. No lower extremity edema NEUROLOGIC: Awake and alert. Oriented x 3. ASSESSMENT: Chest pain, troponin negative x 2 Kidney cancer, per patient Paroxysmal fibrillation with previous ablation Cardiomyopathy, nonischemic, with recovery an EF, previously 20%, now 45-50% Normal coronary arteries, per cardiac catheterization performed in [place] Hyperlipidemia Diabetes PLAN: Continue current cardiac medications Patient is stable from a cardiac standpoint Patients pain appears thoracic but noncardiac at this time We will sign off. Please reconsult if needed. Nurse practitioner note has been reviewed by physician. Signing provider agrees with the documented findings, assessment, and plan of care. Objective - Vital Signs Vital signs: Vital Signs Temp 98.9 F 05/26/23 07:00 Pulse 89 05/26/23 07:00 Resp 18 05/26/23 07:00 BP 125/80 05/26/23 07:00 Pulse Ox 96 05/26/23 07:00 FiO2 Intake & Output 05/25/23 05/26/23 05/26/23 18:59 06:59 18:59 Intake Total 240 Balance 240 Weight 108.862 kg Intake: Oral 240 Other: # Voids 3 2 # Bowel Movements 0 - Labs CBC & Chem 7: 05/25/23 04:06 05/25/23 04:06 Labs: Abnormal Lab Results - Last 24 Hours (Table) 05/25/23 05/25/23 05/26/23 Range/Units 18:31 20:23 05:20 POC Glucose (mg/dL) 248 H 279 H (70-110) mg/dL Hemoglobin A1c 9.6 H (<=6.0) % HDL Cholesterol (40.00-60.00) mg/dL 05/26/23 05/26/23 05/26/23 Range/Units 05:20 06:16 12:23 POC Glucose (mg/dL) 163 H 225 H (70-110) mg/dL Hemoglobin A1c (<=6.0) % HDL Cholesterol 35.40 L (40.00-60.00) mg/dL
[2023-05-26 15:13] VITALS: BMI 30.8
[2023-05-26 15:22] LABS: Appearance,Urine Clear (Clear); Bilirubin,Urine Negative (Negative); Blood,Urine Negative (Negative); Color,Urine Yellow; Glucose,Urine (UA) 4+ (Negative); Leukocyte Esterase,Urine Negative (Negative); Nitrite,Urine Negative (Negative); Protein,Urine Trace (Negative); Specific Gravity,Urine 1.031 (1.001-1.035); Urobilinogen,Urine <2.0 mg/dL (<2.0)
[2023-05-26 15:42] LABS: Ketones,Urine 2+ (Negative)
[2023-05-26 17:41] LABS: Glucose,Whole Blood 195 mg/dL (70-110)
--- NOTE | 2023-05-26 18:14 | P.CONS ---
History of Present Illness - Reason for Consult Consult date: 05/26/23 liver lesion Requesting physician: Julio C Motta - Chief Complaint chest pain - History of Present Illness Patient is a 47 year old male with a significant history of renal cancer and CHF. We were consulted for liver lesion noted on CT scan. Patient presented to the ER for chest pain and nausea vomiting that began last night. He also complains of shortness of breath and dizziness but reports this is a chronic issue related to his CHF. Patient states last night chest pain was persisting and became sharp in nature which caused him to present to the ER for further evaluation. Upon presentation chest x-ray revealed no acute cardiopulmonary processes. CT angiogram of thoracic/abdomen and pelvis showed no evidence for thoracic aortic dissection or aneurysm. Circumferential wall thickening of the rectum. Mild splenomegaly. Hepatic steatosis with a peripheral enhancing lesion within the right hepatic lobe measuring 3.4 cm, probable hemangioma. Serial troponins negative. WBC 8.3, hemoglobin 16.9, platelets 176,000. AST and ALP within normal limits. ALT elevated at 67. Bilirubin normal. Patient did develop a fever today of 100.8. Blood cultures pending. Patient reports chest pain has since subsided but is now experiencing intermittent right lateral side pain that is worse with certain movements. He also reports mild dysuria last night. Patient states he was diagnosed with left renal cancer in 2019 and had an ablation done at that time. He received no systemic therapy. And has been following up as [facility] for observation every 6 months. He states that at his last follow-up there was noted to be a small spot on his right kidney. However, at this time he is still in observation with no active treatment. Patient denies any unintentional weight loss. Denies any night sweats. Review of Systems 10 point ROS is negative except as stated in the HPI Past Medical History Past Medical History: Atrial Fibrillation, Heart Failure, Diabetes Mellitus Additional Past Medical History / Comment(s): Renal Cancer, blood clot in heart History of Any Multi-Drug Resistant Organisms: None Reported Past Surgical History: Cardiac Ablation, Orthopedic Surgery Past Psychological History: No Psychological Hx Reported Smoking Status: Former smoker Past Alcohol Use History: None Reported Past Drug Use History: None Reported Medications and Allergies Home Medications Medication Instructions Recorded Confirmed Type Apixaban [Eliquis] 5 mg PO BID 05/25/23 05/25/23 History Atorvastatin [Lipitor] 10 mg PO DAILY 05/25/23 05/25/23 History Cholecalciferol [Vitamin D3 (25 25 mcg PO DAILY 05/25/23 05/25/23 History Mcg = 1000 Iu)] Cyanocobalamin (Vitamin B-12) 1,000 mcg PO DAILY 05/25/23 05/25/23 History [Vitamin B-12] Empagliflozin [Jardiance] 25 mg PO DAILY 05/25/23 05/25/23 History Fish Oil/Dha/Epa [Fish Oil 1,200 1 cap PO DAILY 05/25/23 05/25/23 History mg Fish Oil] Gabapentin 600 mg PO TID PRN 05/25/23 05/25/23 History HYDROcodone/APAP 5-325MG [[place] 1 tab PO TID PRN 05/25/23 05/25/23 History 5-325] Insulin Aspart [NovoLOG Flexpen] 40 units SQ AC-SUPPER 05/25/23 05/25/23 History Insulin Aspart [NovoLOG Flexpen] 60 units SQ AC-BRKFST 05/25/23 05/25/23 History Insulin Glargine,Hum.rec.anlog 38 units SQ HS 05/25/23 05/25/23 History [Lantus Solostar Pen] Metoprolol Succinate (ER) [Toprol 50 mg PO DAILY 05/25/23 05/25/23 History Xl] PARoxetine HCL [Paxil] 10 mg PO DAILY 05/25/23 05/25/23 History hydrALAZINE HCL [Apresoline] 10 mg PO TID 05/25/23 05/25/23 History hydrOXYzine pamoate [Vistaril] 25 mg PO QID PRN 05/25/23 05/25/23 History methocarbamoL [Methocarbamol] 500 - 1,000 mg PO QID PRN 05/25/23 05/25/23 History Allergies Allergy/AdvReac Type Severity Reaction Status Date / Time albuterol Allergy Swelling Verified 05/25/23 08:11 Physical Exam Vitals: Vital Signs Temp Pulse Resp BP Pulse Ox 05/26/23 15:00 100.8 F H 102 H 18 154/92 94 L 05/26/23 07:00 98.9 F 89 18 125/80 96 05/26/23 04:39 100.0 F H 05/26/23 03:54 100.0 F H 05/26/23 02:07 100.8 F H 99 21 140/84 95 05/25/23 18:55 100.3 F H 85 16 131/76 97 Intake and Output 05/26/23 05/26/23 05/26/23 06:59 14:59 22:59 Intake Total 360 Balance 360 Intake: Oral 360 Other: # Voids 3 2 # Bowel Movements 0 Weight 108.862 kg - Constitutional General appearance: no acute distress, obese - EENT Eyes: anicteric sclerae, EOMI ENT: hearing grossly normal - Respiratory Respiratory: bilateral: CTA - Cardiovascular Rhythm: regular Heart sounds: normal: S1, S2 Abnormal Heart Sounds: no systolic murmur, no diastolic murmur, no rub, no S3 Gallop, no S4 Gallop, no click, no other - Gastrointestinal General gastrointestinal: no distended, normal bowel sounds, no organomegaly, soft, tenderness Localized gastrointestinal: tender: RUQ - Integumentary Integumentary: no cyanotic, no jaundiced, no rash - Neurologic Neurologic: CNII-XII intact - Musculoskeletal Musculoskeletal: strength equal bilaterally - Psychiatric Psychiatric: A&O x's 3, appropriate affect, intact judgment & insight Results CBC & Chem 7: 05/25/23 04:06 05/25/23 04:06 Labs: Abnormal Lab Results - Last 24 Hours (Table) 05/25/23 05/25/23 05/26/23 Range/Units 18:31 20:23 05:20 POC Glucose (mg/dL) 248 H 279 H (70-110) mg/dL Hemoglobin A1c 9.6 H (<=6.0) % HDL Cholesterol (40.00-60.00) mg/dL Urine Protein (Negative) Urine Glucose (UA) (Negative) Urine Ketones (Negative) 05/26/23 05/26/23 05/26/23 Range/Units 05:20 06:16 12:23 POC Glucose (mg/dL) 163 H 225 H (70-110) mg/dL Hemoglobin A1c (<=6.0) % HDL Cholesterol 35.40 L (40.00-60.00) mg/dL Urine Protein (Negative) Urine Glucose (UA) (Negative) Urine Ketones (Negative) 05/26/23 05/26/23 Range/Units 13:30 17:39 POC Glucose (mg/dL) 195 H (70-110) mg/dL Hemoglobin A1c (<=6.0) % HDL Cholesterol (40.00-60.00) mg/dL Urine Protein Trace H (Negative) Urine Glucose (UA) 4+ H (Negative) Urine Ketones 2+ H (Negative) Chest x-ray: report reviewed CT scan - abdomen: report reviewed CT scan - chest: report reviewed CT scan - pelvis: report reviewed Assessment and Plan (1) Liver lesion, right lobe Current Visit: Yes Status: Acute Priority: High Code(s): K76.9 - LIVER DISEASE, UNSPECIFIED SNOMED Code(s): 990610328 Plan: Liver lesion: -CT angiogram of thoracic/abdomen and pelvis revealed hepatic steatosis with a peripheral enhancing lesion within the right hepatic lobe measuring 3.4 cm, probable hemangioma. -AST and ALP within normal limits. ALT elevated at 67. Bilirubin normal. WBC/hgb/platelets stable -Hx of renal carcinoma in 2019, currently in observation. No active treatment. Has upcoming f/u apt. No reported constitutional symptoms -Will obtain MRI liver with contrast for better visualization. Pending scan results will make further recommendations attests: I have performed H&P and developed impression and plan of care for patient, Discussed with dictator. I agree with dictated note, documented as a scribe
--- NOTE | 2023-05-26 18:50 | P.PN ---
Subjective Progress Note Date: 05/26/23 Hospital course: Patient is a very pleasant 47-year-old male with a past medical history of renal cancer, type 2 [id number] diabetes mellitus, hypertension, hyperlipidemia, atrial fibrillation status post cardiac ablation on anticoagulation with Eliquis, and anxiety. He presented to the emergency department with a chief complaint of chest pain. Patient reports sudden onset of severe pain to midsternal chest radiating into his back. Patient reports this pain came on at rest and has been a constant sharp pressure sensation associated with nausea. Patient denies experiencing any headache, lightheadedness, dizziness, palpitations, shortness of breath, cough or congestion, abdominal pain, vomiting, or experiencing any numbness/tingling/weakness/swelling in his extremities. Patient underwent full evaluation in the emergency department and upon arrival vital signs obtained showing blood pressure 164/106, heart rate 86, respiratory rate 18, temp 98.0F, and SpO2 of 100% on room air. EKG completed showing normal sinus rhythm at 78 bpm with no significant T-wave or ST abnormalities upon personal review and interpretation. X-ray completed lungs appear clear and radiology report stating negative for acute cardiopulmonary process. CTA thoracic/abdominal/pelvic aorta completed and radiology report reviewed stating no evidence for thoracic aortic dissection or aneurysm, circumferential wall thickening of the rectum without surrounding inflammatory changes, mild splenomegaly, and hepatic steatosis with a peripheral enhancing lesion within the right hepatic lobe likely hemangioma recommend further evaluation with CT or MR abdomen. Labs completed and reviewed. CBC and coagulation profile unremarkable. BMP revealing mild acidosis with chloride 108, bicarb 13, and anion gap of 15. Hyperglycemia with glucose of 306. Liver profile revealing elevated ALT is 67. Troponin negative at less than 0.012. D-dimer negative at 0.31. Acetone negative. Discussed with ED physician and interactive media marketing director in detail. Patient being admitted under our services to observation unit with telemetry. Consult placed to both cardiology and hematology/oncology. Troponins were trended overnight all negative at less than 0.012. Lipid profile normal findings. Hemoglobin A1c elevated at 9.6%. Physical exam: Patient seen and fully evaluated at bedside this morning. Patient appeared to be resting comfortably but did report uncontrolled pain and right upper quadrant. Patient with diffuse abdominal pain worse to palpation in right upper quadrant. Patient denies any episodes of nausea or vomiting. Vital signs reviewed and stable. Morning vitals unremarkable with blood pressure 125/80, heart rate 89, respiratory rate 18, SpO2 96% on room air and temp 98.9F. General: Nontoxic, no distress and appears stated age. Obese. Derm: Skin warm and dry, normal coloration for ethnicity. Head: Atraumatic, normocephalic and symmetric. Eyes: EOMs intact, no lid lag, and anicteric sclera Mouth: no lip lesions, mucus membranes moist Cardiovascular: regular rate and rhythm with normal S1S2, no murmur, positive posterior tibial pulses bilaterally, and cap refill < 2 seconds. Lungs: Respirations even, regular, and unlabored on room air. Lungs CTA bilaterally, no rhonchi, no rales, no wheezing, and no accessory muscle usage. Abdominal: soft, diffuse abdominal tenderness upon palpation worse and epigastric region, no guarding, no appreciable organomegaly Ext: ROM intact. No gross muscle atrophy, no edema, no contractures Neuro: Speech clear, face symmetrical and CN II-XII grossly intact with no noted focal neuro deficits Psych: Alert and oriented to person, place, time, and situation. Appropriate and pleasant affect. Assessment and Plan of Care: Chest pain, acute coronary event ruled out Right upper quadrant pain accompanied by Epigastric pain/discomfort with nausea Abnormal CT, concerns of right hepatic lobe hemangioma versus metastatic lesion -Patient now reporting resolution of previously reported chest pain and epigastric pain now stating pain is in right upper quadrant. CTA did reveal a peripheral enhancing lesion within the right hepatic lobe likely hemangioma versus metastatic lesion. Patient is aware of findings.. -Hematology/oncology following and present at time of assessment, discussed plan of care they're recommending patient undergoing MRI prior to discharge and to place order of MRI liver. -Troponins trended overnight all negative at less than 0.0123 draws. -Cardiology following clearing patient from cardiac perspective recommending outpatient follow-up with PCP. -Hematology/oncology consulted secondary to concerns of metastatic lesion/hemangioma of right upper lobe of liver with history of renal cancer. -Telemetry monitoring -Trend troponins -Cardiac diet -Continue cardiac medication regimen with Eliquis 5 mg by mouth twice daily, Aspirin 81 mg daily, atorvastatin 10 mg daily, hydralazine 10 mg 3 times daily and metoprolol 50 mg daily. -Lipid profile with a.m. labs. -Echocardiogram Hypertension, poorly controlled -Continue daily medication regimen with hydralazine 10 mg every 8 hours, metoprolol 50 mg daily, Type II [id number] diabetes mellitus with hyperglycemia -Hold Juardiance and patient placed on glycemic protocol with NovoLog sliding scale to obtain tight glycemic control throughout hospitalization. -Hemoglobin A1c elevated at 9.6%, patient will require additional medications upon discharge. CODE STATUS: Full code DVT prophylaxis: Yulissaquis Discussed with: Patient, RN, and hematology/oncology TOURS HOSTESS Anticipated discharge date: Likely tomorrow, pending completion of MRI Anticipated discharge place: Home Patient was seen independently by Nurse Practitioner. This document was prepared using [employer] dictation software. Please allow for errors in communications tech while rare they do occur. Julio C Motta NP rendered care for this patient independently, reviewed the findings and plan as documented in the note above. I did not physically speak with or examine the patient on this date. Objective - Vital Signs Vital signs: Vital Signs Temp 98.9 F 05/26/23 07:00 Pulse 89 05/26/23 07:00 Resp 18 05/26/23 07:00 BP 125/80 05/26/23 07:00 Pulse Ox 96 05/26/23 07:00 FiO2 Intake & Output 05/25/23 05/26/23 05/26/23 18:59 06:59 18:59 Weight 108.862 kg Other: # Voids 3 - Labs CBC & Chem 7: 05/27/23 05:57 05/27/23 05:57 Labs: Abnormal Lab Results - Last 24 Hours (Table) 05/25/23 05/25/23 05/25/23 Range/Units 11:01 18:31 20:23 POC Glucose (mg/dL) 165 H 248 H 279 H (70-110) mg/dL Hemoglobin A1c (<=6.0) % 05/26/23 05/26/23 Range/Units 05:20 06:16 POC Glucose (mg/dL) 163 H (70-110) mg/dL Hemoglobin A1c 9.6 H (<=6.0) %
[2023-05-26 20:29] LABS: Glucose,Whole Blood 337 mg/dL (70-110)
[2023-05-26] MEDS: MORPHINE SULFATE 4 MG/ML SYRINGE IVP PRN (21:48)
[2023-05-26] MEDS: PIPERACILLIN-TAZOBACTAM 3.375 GM in SODIUM CHLORIDE 0.9% 100 ML IVPB SCH (22:04)
[2023-05-26 22:11] LABS: HCT 47.9 % (39.0-53.0); HGB 16.2 gm/dL (13.0-17.5); MCH 30.5 pg (25.0-35.0); MCHC 33.8 g/dL (31.0-37.0); MCV 90.3 fL (80.0-100.0); Platelet Count 136 k/uL (150-450); RDW 12.7 % (11.5-15.5); WBC 15.7 k/uL (3.8-10.6)
[2023-05-26 22:22] LABS: ALT 44 U/L (4-49); AST 35 U/L (17-59); African American GFR (CKD) >90 (>60 ml/min/1.73 sqM); Albumin 3.6 g/dL (3.5-5.0); Albumin/Globulin Ratio 1.2; Alkaline Phosphatase 76 U/L (38-126); Anion Gap 13 mmol/L; Blood Urea Nitrogen 16 mg/dL (9-20); Calcium 8.5 mg/dL (8.4-10.2); Carbon Dioxide 18 mmol/L (22-30); Chloride 102 mmol/L (98-107); Globulin 2.9 g/dL; Glucose 385 mg/dL (74-99); Non-African American GFR(CKD) 86 (>60 ml/min/1.73 sqM); Potassium 3.9 mmol/L (3.5-5.1); Sodium 133 mmol/L (137-145); Total Bilirubin 1.7 mg/dL (0.2-1.3); Total Protein 6.5 g/dL (6.3-8.2)
[2023-05-26] MEDS ORDERED: SODIUM CHLORIDE 0.9% 1,000 ML IV ONE (22:37)
[2023-05-27] MEDS: HYDROcodone/APAP 5-325MG 1 EACH TAB PO PRN ×2 (00:04→16:12)
[2023-05-27] MEDS: SODIUM CHLORIDE 0.9% 1,000 ML IV SCH ×4 (00:05→22:06)
[2023-05-27] MEDS: MORPHINE SULFATE 4 MG/ML SYRINGE IVP PRN ×3 (04:18→20:17)
[2023-05-27 06:15] LABS: Glucose,Whole Blood 165 mg/dL (70-110)
[2023-05-27] MEDS: PIPERACILLIN-TAZOBACTAM 3.375 GM in SODIUM CHLORIDE 0.9% 100 ML IVPB SCH ×3 (06:23→22:05)
[2023-05-27] MEDS: INSULIN ASPART (NovoLOG) 100 UNIT/ML VIAL SQ SCH ×4 (06:23→20:33)
[2023-05-27] MEDS: ACETAMINOPHEN TAB 325 MG TAB PO PRN ×2 (06:23→20:33)
--- NOTE | 2023-05-27 09:07 | MR ---
EXAMINATION TYPE: MR liver wo/w con DATE OF EXAM: 05/27/2023 8:50 AM INDICATION: Patient age:Male; 47 years old; Reason for study: liver lesion noted on CT; [facility]. COMPARISON: CTA thoracoabdominal pelvis aorta 05/25/2023 TECHNIQUE: Multiplanar multi-sequence imaging was performed without and with IV contrast/Gadavist . The patient was given 11 ccs of Gadavist intravenously and dynamic imaging was performed. Post IV con trast subtraction images were also submitted for review. FINDINGS: LOWER CHEST: Right lower lobe subsegmental atelectasis. ABDOMEN Liver: Subcentimeter right inferior hepatic lobe T2 nonenhancing cyst. Redemonstration of T2 hyperint ense right hepatic dome 3.3 cm lesion. This demonstrates peripheral nodular discontinuous enhancement on postcontrast imaging consistent with a benign hemangioma. Additionally there is dropout of signal on the out of phase imaging throughout the liver consistent with steatosis. Gallbladder and Bile ducts: Mildly distended gallbladder with trace pericholecystic fluid. No visuali zed filling defects to suggest cholelithiasis. Common bile duct is normal in caliber. Pancreas: Unremarkable. Spleen: Unremarkable. Adrenal glands: Unremarkable. Kidneys: No hydronephrosis. Bilateral subcentimeter tiny cortical cysts. Stomach and Bowel: Unremarkable as visualized. Peritoneum: No evidence of pneumoperitoneum. No adenopathy. Trace perihepatic free fluid. Vasculature: Unremarkable. No aortic aneurysm. Abdominal wall: Unremarkable. Musculoskeletal: The osseous structures appear intact. IMPRESSION: 1. Right hepatic dome lesion consistent with a benign hemangioma. 2. Mildly distended gallbladder with trace pericholecystic fluid. No overt wall thickening or choleli thiasis visualized. Consider further evaluation with ultrasound if there is concern for acute cholecy stitis. 3. Hepatic steatosis.
[2023-05-27 09:10] LABS: HCT 45.6 % (39.6-50.0); HGB 15.5 d/dL (12.0-15.0); MCV 88.4 FL (80.0-97.0); Mean Platelet Volume 10.3 FL (9.5-12.2); NRBC Per 100 WBC 0 X 10*3/uL (0.00-0.01); Platelet Count 134 X 10*3/uL (140-440); RBC 5.16 X 10*6/uL (4.40-5.60); RDW 12.4 % (11.5-14.5); WBC 16.39 X 10*3/uL (4.50-10.00)
[2023-05-27] MEDS: PARoxetine 10 MG TAB PO SCH (09:40)
[2023-05-27] MEDS: hydrALAZINE HCL 10 MG TAB PO SCH ×3 (09:40→16:23)
[2023-05-27] MEDS: ATORVASTATIN 10 MG TAB PO SCH (09:40)
[2023-05-27] MEDS: METOPROLOL SUCCINATE (ER) 50 MG TAB.ER.24H PO SCH (09:40)
[2023-05-27] MEDS: APIXABAN 5 MG TAB PO SCH (09:40)
[2023-05-27 11:27] LABS: ALT 46 U/L (10-49); AST 48 U/L (14-35); Albumin 3.5 d/dL (3.8-4.9); Alkaline Phosphatase 63 U/L (41-126); BUN/Creat Ratio 9.14 Ratio (12.00-20.00); Blood Urea Nitrogen 12.8 mg/dL (9.0-27.0); Calcium 8.6 mg/dL (8.7-10.3); Carbon Dioxide 17.1 mmol/L (21.6-31.8); Chloride 102 mmol/L (96-109); Globulin 2.5 d/dL (1.6-3.3); Glucose 173 mg/dL (70-110); Potassium 4.3 mmol/L (3.5-5.5); Sodium 136 mmol/L (135-145); Total Bilirubin 1.7 mg/dL (0.3-1.2)
[2023-05-27 12:02] LABS: Glucose,Whole Blood 388 mg/dL (70-110)
--- NOTE | 2023-05-27 13:54 | US ---
EXAMINATION TYPE: US gallbladder DATE OF EXAM: 05/27/2023 COMPARISON: NONE CLINICAL INDICATION: Male, 47 years old with history of RUQ pain, r/o cholecystitis; MRI of liver mitchell wed abn GB, chest pain TECHNIQUE: Multiple sonographic images of the right upper quadrant are obtained. FINDINGS: EXAM MEASUREMENTS: Liver Length: 19.0 cm Gallbladder Wall: 0.2 cm CBD: 0.6 cm Right Kidney: 12.8 x 5.3 x 6.2 cm MEAT APPRENTICE NOTES:extensive subcostal bowel gas limits exam, intercostal imaging performed Pancreas: not seen due to bowel gas Liver: limited views of enlarged liver were difficult to penetrate Gallbladder: adjacent fluid seen near fundus, some debris noted within GB but no obvious stones, no wall thickening Evidence for sonographic Zuniga's sign: no CBD: wnl Right Kidney: wnl Pancreas is not visualized overlying bowel gas. Liver is enlarged and demonstrates increased attenuat ion and difficult to penetrate. No focal lesion within these limitations. Pericholecystic fluid ident ified. No wall thickening or shadowing gallstones identified. Some gallbladder sludge identified. Per securities analyst, negative sonographic Zuniga sign. Common bile duct within normal limits. Right kidney i s unremarkable without evidence of hydronephrosis, solid mass, or or nephrolithiasis. IMPRESSION: 1. Gallbladder sludge with trace pericholecystic fluid. No definitive ultrasound evidence for acute cholecystitis. 2. Hepatic steatosis.
--- NOTE | 2023-05-27 14:47 | P.CONS ---
History of Present Illness - Reason for Consult Consult date: 05/27/23 Sepsis Requesting physician: Jevon Chamberlain - Chief Complaint Chest and right upper abdominal pain x few days - History of Present Illness Patient is a 47-year-old male with a past medical history negative for diabetes mellitus heart failure atrial fibrillation present to the hospital 3 days ago for evaluation of chest discomfort currently patient complaining of p ain mostly to the center chest and right upper quadrant area describing it to be more of a sharp in nature intensity almost 7 or 8 of 10 associated nausea no vomiting no diarrhea patient on presentation to the hospital was afebrile subsequently did spike a fever of 100.8 F and did have another fever of 102.9 F last evening patient was tachycardic did have elevated elevated white count 15 point 7 repeat is up to 16.39 K function has been normal bilirubin AST is mildly elevated urine has been negative patient did have a chest x-ray on admission negative for acute cardiopulmonary disease he also have thoracic aorta CT no evidence of thoracic aortic dissection or aneurysm there was circumferen tial wall thickening of the rectum and concerning for peripheral enhancing lesion within the right hepatic lobe patient was evaluated by hematology oncology and he did have a liver MRI completed which was suspicious for possible cholecystitis did not mention any head liver abscess patient was started on Zosyn last night infectious disease was consulted for further management of antibiotic therapy Review of Systems Positive point and negatives has been mentioned in the HPI, complete review of systems was performed and all other systems are negative Past Medical History Past Medical History: Atrial Fibrillation, Heart Failure, Diabetes Mellitus Additional Past Medical History / Comment(s): Renal Cancer, blood clot in heart History of Any Multi-Drug Resistant Organisms: None Reported Past Surgical History: Cardiac Ablation, Orthopedic Surgery Past Psychological History: No Psychological Hx Reported Smoking Status: Former smoker Past Alcohol Use History: None Reported Past Drug Use History: None Reported Medications and Allergies Home Medications Medication Instructions Recorded Confirmed Type Apixaban [Eliquis] 5 mg PO BID 05/25/23 05/25/23 History Atorvastatin [Lipitor] 10 mg PO DAILY 05/25/23 05/25/23 History Cholecalciferol [Vitamin D3 (25 25 mcg PO DAILY 05/25/23 05/25/23 History Mcg = 1000 Iu)] Cyanocobalamin (Vitamin B-12) 1,000 mcg PO DAILY 05/25/23 05/25/23 History [Vitamin B-12] Empagliflozin [Jardiance] 25 mg PO DAILY 05/25/23 05/25/23 History Fish Oil/Dha/Epa [Fish Oil 1,200 1 cap PO DAILY 05/25/23 05/25/23 History mg Fish Oil] Gabapentin 600 mg PO TID PRN 05/25/23 05/25/23 History HYDROcodone/APAP 5-325MG [[place] 1 tab PO TID PRN 05/25/23 05/25/23 History 5-325] Insulin Aspart [NovoLOG Flexpen] 40 units SQ AC-SUPPER 05/25/23 05/25/23 History Insulin Aspart [NovoLOG Flexpen] 60 units SQ AC-BRKFST 05/25/23 05/25/23 History Insulin Glargine,Hum.rec.anlog 38 units SQ HS 05/25/23 05/25/23 History [Lantus Solostar Pen] Metoprolol Succinate (ER) [Toprol 50 mg PO DAILY 05/25/23 05/25/23 History XL] PARoxetine HCL [Paxil] 10 mg PO DAILY 05/25/23 05/25/23 History hydrALAZINE HCL [Apresoline] 10 mg PO TID 05/25/23 05/25/23 History hydrOXYzine pamoate [Vistaril] 25 mg PO QID PRN 05/25/23 05/25/23 History methocarbamoL [Methocarbamol] 500 - 1,000 mg PO QID PRN 05/25/23 05/25/23 History Amoxic-Pot Clav 875-125Mg 1 tab PO Q12HR 5 Days #10 tab 06/01/23 Rx [Augmentin 875-125] HYDROcodone/APAP 5-325MG [[place] 1 tab PO Q6HR PRN 3 Days #12 tab 06/01/23 Rx 5-325] Allergies Allergy/AdvReac Type Severity Reaction Status Date / Time No Known Allergies Allergy Verified 05/29/23 12:16 Physical Exam Vitals: Vital Signs Temp Pulse Resp BP BP Pulse Ox 05/27/23 07:00 98.7 F 125 H 20 96/62 137/80 92 L 05/27/23 00:47 99.7 F H 107 H 28 H 154/89 96 05/26/23 21:33 100.3 F H 05/26/23 19:46 102.9 F H 114 H 20 157/87 93 L 05/26/23 15:00 100.8 F H 102 H 18 154/92 94 L Intake and Output 05/26/23 05/27/23 05/27/23 22:59 06:59 14:59 Output Total 600 Balance -600 Output: Urine 600 Other: # Voids 2 Weight 108.862 kg GENERAL DESCRIPTION: Middle-aged male lying in bed, no distress. No tachypnea or accessory muscle of respiration use. HEENT: Shows Pallor , no scleral icterus. Oral mucous membrane is dry. No pharyngeal erythema or thrush NECK: Trachea central, no thyromegaly. LUNGS: Unlabored breathing. Clear to auscultation anteriorly. No wheeze or crackle. HEART: S1, S2, regular rate and rhythm. No loud murmur ABDOMEN: Soft, right upper quadrant tenderness ,no guarding or rigidity EXTREMITIES: No edema of feet. SKIN: No rash, no masses palpable. NEUROLOGICAL: The patient is awake, alert, oriented x3, mood and affect normal. Results CBC & Chem 7: 06/02/23 06:52 06/01/23 05:21 Labs: Abnormal Lab Results - Last 24 Hours (Table) 05/26/23 05/26/23 05/26/23 Range/Units 12:23 13:30 17:39 WBC (3.8-10.6) k/uL Hgb (12.0-15.0) d/dL Plt Count (150-450) k/uL Sodium (137-145) mmol/L Carbon Dioxide (22-30) mmol/L Glucose (74-99) mg/dL POC Glucose (mg/dL) 225 H 195 H (70-110) mg/dL Plasma Lactic Acid Prudencio (0.7-2.0) mmol/L Total Bilirubin (0.2-1.3) mg/dL Urine Protein Trace H (Negative) Urine Glucose (UA) 4+ H (Negative) Urine Ketones 2+ H (Negative) 05/26/23 05/26/23 05/26/23 Range/Units 20:27 21:52 21:52 WBC 15.7 H (3.8-10.6) k/uL Hgb (12.0-15.0) d/dL Plt Count 136 L (150-450) k/uL Sodium 133 L (137-145) mmol/L Carbon Dioxide 18 L (22-30) mmol/L Glucose 385 H (74-99) mg/dL POC Glucose (mg/dL) 337 H (70-110) mg/dL Plasma Lactic Acid Prudencio (0.7-2.0) mmol/L Total Bilirubin 1.7 H (0.2-1.3) mg/dL Urine Protein (Negative) Urine Glucose (UA) (Negative) Urine Ketones (Negative) 05/26/23 05/27/23 05/27/23 Range/Units 21:52 05:57 06:14 WBC 16.39 H (3.8-10.6) k/uL Hgb 15.5 H (12.0-15.0) d/dL Plt Count 134 L (150-450) k/uL Sodium (137-145) mmol/L Carbon Dioxide (22-30) mmol/L Glucose (74-99) mg/dL POC Glucose (mg/dL) 165 H (70-110) mg/dL Plasma Lactic Acid Prudenico 2.1 H* (0.7-2.0) mmol/L Total Bilirubin (0.2-1.3) mg/dL Urine Protein (Negative) Urine Glucose (UA) (Negative) Urine Ketones (Negative) Assessment and Plan (1) Sepsis Status: Acute Code(s): A41.9 - SEPSIS, UNSPECIFIED ORGANISM SNOMED Code(s): 51251427 (2) Acute cholecystitis Status: Acute Code(s): K81.0 - ACUTE CHOLECYSTITIS SNOMED Code(s): 74897486 Plan: 1patient with sepsis in this patient with fever tachycardia elevated white count he did have epigastric and right upper quadrant pain with abnormal CT and MRI high clinical suspicious for acute cholecystitis and we will need to call for the enteric gram-negative to be the likely pathogen 2-await ultrasound of the gallbladder area and surgery evaluation 3-continue with the Zosyn We will follow on clinical condition and cultures to further adjust medication if needed Thank you for this consultation we will follow the patient along with you Time with Patient: Greater than 30
[2023-05-27] MEDS: KETOROLAC 15 MG/ML 1 ML VIAL IVP PRN (16:12)
--- NOTE | 2023-05-27 16:23 | P.PN ---
Subjective Progress Note Date: 05/27/23 Hospital course: Patient is a very pleasant 47-year-old male with a past medical history of renal cancer, type 2 [id number] diabetes mellitus, hypertension, hyperlipidemia, atrial fibrillation status post cardiac ablation on anticoagulation with Eliquis, and anxiety. He presented to the emergency department with a chief complaint of chest pain. Patient reports sudden onset of severe pain to midsternal chest radiating into his back. Patient reports this pain came on at rest and has been a constant sharp pressure sensation associated with nausea. Patient denies experiencing any headache, lightheadedness, dizziness, palpitations, shortness of breath, cough or congestion, abdominal pain, vomiting, or experiencing any numbness/tingling/weakness/swelling in his extremities. Patient underwent full evaluation in the emergency department and upon arrival vital signs obtained showing blood pressure 164/106, heart rate 86, respiratory rate 18, temp 98.0F, and SpO2 of 100% on room air. EKG completed showing normal sinus rhythm at 78 bpm with no significant T-wave or ST abnormalities upon personal review and interpretation. X-ray completed lungs appear clear and radiology report stating negative for acute cardiopulmonary process. CTA thoracic/abdominal/pelvic aorta completed and radiology report reviewed stating no evidence for thoracic aortic dissection or aneurysm, circumferential wall thickening of the rectum without surrounding inflammatory changes, mild splenomegaly, and hepatic steatosis with a peripheral enhancing lesion within the right hepatic lobe likely hemangioma recommend further evaluation with CT or MR abdomen. Labs completed and reviewed. CBC and coagulation profile unremarkable. BMP revealing mild acidosis with chloride 108, bicarb 13, and anion gap of 15. Hyperglycemia with glucose of 306. Liver profile revealing elevated ALT is 67. Troponin negative at less than 0.012. D-dimer negative at 0.31. Acetone negative. Discussed with ED physician and director advanced in detail. Patient being admitted under our services to observation unit with telemetry. Consult placed to both cardiology and hematology/oncology. Troponins were trended overnight all negative at less than 0.012. Lipid profile normal findings. Hemoglobin A1c elevated at 9.6%. Physical exam: Patient seen and fully evaluated at bedside this morning. Patient reports persistent pain right upper quadrant. Continues to deny any nausea or vomiting. Patient did spike elevated temp overnight as high as 102.9 along with tachycardia and found to have a new onset leukocytosis with WBC count of 15.7 and elevated lactate of 2.1. Patient showing signs of sepsis and started on IV antibiotics with Zosyn. Vital signs reviewed and stable. Morning vitals unremarkable with blood pressure 125/80, heart rate 89, respiratory rate 18, and SpO2 of 96% on room air with temp of 98.9F. General: Nontoxic, no distress and appears stated age. Obese. Derm: Skin warm and dry, normal coloration for ethnicity. Head: Atraumatic, normocephalic and symmetric. Eyes: EOMs intact, no lid lag, and anicteric sclera Mouth: no lip lesions, mucus membranes moist Cardiovascular: regular rate and rhythm with normal S1S2, no murmur, positive posterior tibial pulses bilaterally, and cap refill < 2 seconds. Lungs: Respirations even, regular, and unlabored on room air. Lungs CTA bilaterally, no rhonchi, no rales, no wheezing, and no accessory muscle usage. Abdominal: soft, right upper quadrant pain upon palpation, no guarding, no appreciable organomegaly Ext: ROM intact. No gross muscle atrophy, no edema, no contractures Neuro: Speech clear, face symmetrical and CN II-XII grossly intact with no noted focal neuro deficits Psych: Alert and oriented to person, place, time, and situation. Appropriate and pleasant affect. Assessment and Plan of Care: Chest pain, acute coronary event ruled out Right upper quadrant pain accompanied by Epigastric pain/discomfort with nausea, rule out acute cholecystitis Sepsis likely secondary to acute cholecystitis Liver hemangioma -Cardiology evaluated patient for reports of chest pain ruling out an acute coronary event and clearing patient from cardiac perspective recommending outpatient follow-up with PCP. -Hematology/oncology consulted secondary to concerns of metastatic lesion/hemangioma of right upper lobe of liver with history of renal cancer and ordered MRI confirming liver hemangioma. -Patient began spiking elevated temps as high as 102.9 with tachycardia heart rate of 114, leukopenia with WBC count of 15.7. lactic acid was obtained resulting initially elevated at 2.1 with repeat at 1.3. Blood cultures were drawn and patient started on IV antibiotics with Zosyn 3.375 g every 8 hours. -MRI resulting showing right hepatic dome lesion consistent with benign hemangioma and a mildly distended gallbladder with trace. Cholecystic fluid recommending consideration of further evaluation with ultrasound to rule out acute cholecystitis. -Order placed for ultrasound of gallbladder -Gen. surgery consulted to rule out acute cholecystitis -Patient to continue with IV antibiotics Zosyn 3.375 g every 8 hours pending culture results and further findings. -Continue with IV fluid hydration with 0.9% normal saline in the 130 mLs per hour. -Patient to be placed on clear liquid diet pending further recommendations from general surgery. -Continue cardiac medication regimen Aspirin 81 mg daily, atorvastatin 10 mg daily, hydralazine 10 mg 3 times daily and metoprolol 50 mg daily. We will hold Eliquis based upon further recommendations from general surgeon. -Lipid profile unremarkable with the exception of low HDL. -Echocardiogram Completed revealing slightly impaired EF of 40-45% Hypertension, poorly controlled -Continue daily medication regimen with hydralazine 10 mg every 8 hours, metoprolol 50 mg daily, Type II [id number]-duferqizk diabetes mellitus with hyperglycemia -Hold Juardiance and patient placed on glycemic protocol with NovoLog sliding scale to obtain tight glycemic control throughout hospitalization. -Hemoglobin A1c elevated at 9.6%, patient will require additional medications upon discharge. Dieter review: -Morning vitals reviewed, patient afebrile with blood pressure 125/80, heart rate 89, respiratory rate 18, and SpO2 of 96% on room air with temp of 98.9F. -Morning labs reviewed showing worsening leukocytosis up to 16.39 with platelet count of 134, elevated total bili of 1.7 and elevated AST of 48. Imaging reviewed: -MRI resulting showing right hepatic dome lesion consistent with benign hemangioma and a mildly distended gallbladder with trace. Cholecystic fluid recommending consideration of further evaluation with ultrasound to rule out acute cholecystitis. CODE STATUS: Full code DVT prophylaxis: Eliquis Discussed with: Patient, RN, and general surgeon Anticipated discharge date: pending clinical course Anticipated discharge place: Home Patient was seen independently by Nurse Practitioner. This document was prepared using [employer] dictation software. Please allow for errors in machine operator helper while rare they do occur. I reviewed the documentation as provided by the TRISTIN above, who is the original author of this note. I agree with the documented assessment and plan, with the following changes: none Objective - Vital Signs Vital signs: Vital Signs Temp 98.7 F 05/27/23 07:00 Pulse 125 H 05/27/23 07:00 Resp 20 05/27/23 07:00 BP 137/80 05/27/23 07:00 Pulse Ox 92 L 05/27/23 07:00 FiO2 Intake & Output 05/26/23 05/27/23 05/27/23 18:59 06:59 18:59 Intake Total 360 Output Total 600 Balance 360 -600 Weight 108.862 kg Intake: Oral 360 Output: Urine 600 Other: # Voids 2 2 # Bowel Movements 0 - Labs CBC & Chem 7: 05/29/23 05:41 05/29/23 05:41 Labs: Abnormal Lab Results - Last 24 Hours (Table) 05/26/23 05/26/23 05/26/23 Range/Units 12:23 13:30 17:39 WBC (3.8-10.6) k/uL Hgb (12.0-15.0) d/dL Plt Count (150-450) k/uL Sodium (137-145) mmol/L Carbon Dioxide (22-30) mmol/L Glucose (74-99) mg/dL POC Glucose (mg/dL) 225 H 195 H (70-110) mg/dL Plasma Lactic Acid Prudencio (0.7-2.0) mmol/L Total Bilirubin (0.2-1.3) mg/dL Urine Protein Trace H (Negative) Urine Glucose (UA) 4+ H (Negative) Urine Ketones 2+ H (Negative) 05/26/23 05/26/23 05/26/23 Range/Units 20:27 21:52 21:52 WBC 15.7 H (3.8-10.6) k/uL Hgb (12.0-15.0) d/dL Plt Count 136 L (150-450) k/uL Sodium 133 L (137-145) mmol/L Carbon Dioxide 18 L (22-30) mmol/L Glucose 385 H (74-99) mg/dL POC Glucose (mg/dL) 337 H (70-110) mg/dL Plasma Lactic Acid Prudencio (0.7-2.0) mmol/L Total Bilirubin 1.7 H (0.2-1.3) mg/dL Urine Protein (Negative) Urine Glucose (UA) (Negative) Urine Ketones (Negative) 05/26/23 05/27/23 05/27/23 Range/Units 21:52 05:57 06:14 WBC 16.39 H (3.8-10.6) k/uL Hgb 15.5 H (12.0-15.0) d/dL Plt Count 134 L (150-450) k/uL Sodium (137-145) mmol/L Carbon Dioxide (22-30) mmol/L Glucose (74-99) mg/dL POC Glucose (mg/dL) 165 H (70-110) mg/dL Plasma Lactic Acid Prudencio 2.1 H* (0.7-2.0) mmol/L Total Bilirubin (0.2-1.3) mg/dL Urine Protein (Negative) Urine Glucose (UA) (Negative) Urine Ketones (Negative)
--- NOTE | 2023-05-27 16:57 | P.PN ---
Subjective Progress Note Date: 05/27/23 -Febrile over the past 24 hours with Tmax 102.7 F -Liver MRI noted right hepatic lobe lesion consistent with hemangioma along with mildly distended gallbladder -Ultrasound of the gallbladder noted biliary sludge with trace pericardial fluid -He continues to have right upper quadrant pain that is persistent with nausea Objective - Vital Signs Vital signs: Vital Signs Temp 102.0 F H 05/27/23 15:00 Pulse 117 H 05/27/23 15:00 Resp 20 05/27/23 15:00 BP 127/77 05/27/23 15:00 Pulse Ox 91 L 05/27/23 15:00 FiO2 Intake & Output 05/26/23 05/27/23 05/27/23 18:59 06:59 18:59 Intake Total 360 120 Output Total 600 1200 Balance 360 -600 -1080 Weight 108.862 kg Intake: Oral 360 120 Output: Urine 600 1200 Other: # Voids 2 2 # Bowel Movements 0 - Constitutional Constitutional Comment(s): Uncomfortable lying in bed, leaning towards right side - Respiratory Respiratory: bilateral: CTA - Cardiovascular Details: Tachycardia Rhythm: regular - Gastrointestinal General gastrointestinal: Present: distended, normal bowel sounds, tenderness Localized gastrointestinal: tender: RUQ, guarding: RUQ - Integumentary Integumentary: Present: flushed - Neurologic Neurologic: Present: CNII-XII intact. Absent: focal deficits - Labs CBC & Chem 7: 05/27/23 05:57 05/27/23 05:57 Labs: Abnormal Lab Results - Last 24 Hours (Table) 05/26/23 05/26/23 05/26/23 Range/Units 17:39 20:27 21:52 WBC 15.7 H (3.8-10.6) k/uL Hgb (12.0-15.0) d/dL Plt Count 136 L (150-450) k/uL Sodium (137-145) mmol/L Carbon Dioxide (22-30) mmol/L Anion Gap (4.00-12.00) mmol/L BUN/Creatinine Ratio (12.00-20.00) Ratio Glucose (74-99) mg/dL POC Glucose (mg/dL) 195 H 337 H (70-110) mg/dL Plasma Lactic Acid Prudencio (0.7-2.0) mmol/L Calcium (8.7-10.3) mg/dL Total Bilirubin (0.2-1.3) mg/dL AST (14-35) U/L Total Protein (6.2-8.2) d/dL Albumin (3.8-4.9) d/dL Albumin/Globulin Ratio (1.60-3.17) Ratio 05/26/23 05/26/23 05/27/23 Range/Units 21:52 21:52 05:57 WBC 16.39 H (3.8-10.6) k/uL Hgb 15.5 H (12.0-15.0) d/dL Plt Count 134 L (150-450) k/uL Sodium 133 L (137-145) mmol/L Carbon Dioxide 18 L (22-30) mmol/L Anion Gap (4.00-12.00) mmol/L BUN/Creatinine Ratio (12.00-20.00) Ratio Glucose 385 H (74-99) mg/dL POC Glucose (mg/dL) (70-110) mg/dL Plasma Lactic Acid Prudencio 2.1 H* (0.7-2.0) mmol/L Calcium (8.7-10.3) mg/dL Total Bilirubin 1.7 H (0.2-1.3) mg/dL AST (14-35) U/L Total Protein (6.2-8.2) d/dL Albumin (3.8-4.9) d/dL Albumin/Globulin Ratio (1.60-3.17) Ratio 05/27/23 05/27/23 05/27/23 Range/Units 05:57 06:14 12:00 WBC (3.8-10.6) k/uL Hgb (12.0-15.0) d/dL Plt Count (150-450) k/uL Sodium (137-145) mmol/L Carbon Dioxide 17.1 L (22-30) mmol/L Anion Gap 16.90 H (4.00-12.00) mmol/L BUN/Creatinine Ratio 9.14 L (12.00-20.00) Ratio Glucose 173 H (74-99) mg/dL POC Glucose (mg/dL) 165 H 388 H (70-110) mg/dL Plasma Lactic Acid Prudencio (0.7-2.0) mmol/L Calcium 8.6 L (8.7-10.3) mg/dL Total Bilirubin 1.7 H (0.2-1.3) mg/dL AST 48 H (14-35) U/L Total Protein 6.0 L (6.2-8.2) d/dL Albumin 3.5 L (3.8-4.9) d/dL Albumin/Globulin Ratio 1.40 L (1.60-3.17) Ratio Microbiology - Last 24 Hours (Table) 05/26/23 05:20 Blood Culture - Preliminary Blood Assessment and Plan (1) Liver lesion, right lobe Current Visit: Yes Status: Acute Priority: High Code(s): K76.9 - LIVER DISEASE, UNSPECIFIED SNOMED Code(s): 040244096 Plan: #Right hepatic lobe lesion -CT angiogram of thoracic/abdomen and pelvis revealed hepatic steatosis with a peripheral enhancing lesion within the right hepatic lobe measuring 3.4 cm, probable hemangioma. -AST and ALP within normal limits. ALT elevated at 67. Bilirubin normal. WBC/hgb/platelets stable -Hx of renal carcinoma in 2019, currently in observation. No active treatment. Has upcoming f/u apt. No reported constitutional symptoms -Liver MRI noted lesion being consistent with hemangioma with no other radiographic findings concerning for malignancy -We discussed that this is a benign lesion and is not related to his prior hist ory of renal cell carcinoma -From an oncology perspective, this requires no additional work-up -Continue care for possible acute cholecystitis per primary and consulted surgical teams Thank you for allowing us to participate in Mr. Giraldo's care. Iliana Fermin MD
[2023-05-27 17:34] LABS: Glucose,Whole Blood 286 mg/dL (70-110)
[2023-05-27 20:18] LABS: Glucose,Whole Blood 301 mg/dL (70-110)
[2023-05-28] MEDS: KETOROLAC 15 MG/ML 1 ML VIAL IVP PRN ×3 (01:38→18:10)
[2023-05-28] MEDS: HYDROcodone/APAP 5-325MG 1 EACH TAB PO PRN ×3 (01:39→18:10)
[2023-05-28] MEDS: hydrALAZINE HCL 10 MG TAB PO SCH ×4 (01:51→20:20)
[2023-05-28 06:30] LABS: Glucose,Whole Blood 216 mg/dL (70-110)
[2023-05-28] MEDS: PIPERACILLIN-TAZOBACTAM 3.375 GM in SODIUM CHLORIDE 0.9% 100 ML IVPB SCH ×2 (06:37→17:09)
[2023-05-28] MEDS: SODIUM CHLORIDE 0.9% 1,000 ML IV SCH ×2 (06:38→15:48)
[2023-05-28] MEDS: INSULIN ASPART (NovoLOG) 100 UNIT/ML VIAL SQ SCH ×4 (06:42→20:19)
[2023-05-28] MEDS: MORPHINE SULFATE 4 MG/ML SYRINGE IVP PRN ×3 (06:43→20:35)
[2023-05-28] MEDS: PARoxetine 10 MG TAB PO SCH (08:46)
[2023-05-28] MEDS: ATORVASTATIN 10 MG TAB PO SCH (08:46)
[2023-05-28] MEDS: METOPROLOL SUCCINATE (ER) 50 MG TAB.ER.24H PO SCH (08:47)
[2023-05-28 09:38] LABS: HCT 41.6 % (39.0-53.0); HGB 14.2 gm/dL (13.0-17.5); MCH 30.8 pg (25.0-35.0); MCHC 34.1 g/dL (31.0-37.0); MCV 90.4 fL (80.0-100.0); Mean Platelet Volume 8.6; Platelet Count 107 k/uL (150-450); RDW 12.9 % (11.5-15.5); WBC 10.7 k/uL (3.8-10.6)
[2023-05-28 09:48] LABS: ALT 40 U/L (4-49); AST 37 U/L (17-59); African American GFR (CKD) 72 (>60 ml/min/1.73 sqM); Albumin 2.9 g/dL (3.5-5.0); Alkaline Phosphatase 66 U/L (38-126); Anion Gap 14 mmol/L; Blood Urea Nitrogen 22 mg/dL (9-20); Calcium 7.6 mg/dL (8.4-10.2); Carbon Dioxide 16 mmol/L (22-30); Chloride 106 mmol/L (98-107); Globulin 2.8 g/dL; Glucose 203 mg/dL (74-99); Non-African American GFR(CKD) 63 (>60 ml/min/1.73 sqM); Potassium 3.9 mmol/L (3.5-5.1); Sodium 136 mmol/L (137-145); Total Bilirubin 1.2 mg/dL (0.2-1.3); Total Protein 5.7 g/dL (6.3-8.2)
--- NOTE | 2023-05-28 10:02 | P.GSCN ---
History of Present Illness Consult date: 05/28/23 Reason for Consult: Right upper quadrant pain History of present illness: This is a 47-year-old male who's had a four-day history of right upper quadrant pain. Patient's also shows evidence of sludge in the gallbladder. He also had an MRI of the liver which shows a possible hemangioma the right lobe of the liver. Patient is pointing to his right subcostal margin as the area pain. He states both his parents had their gallbladders out and he wants to have his gallbladder out also. Past Medical History Past Medical History: Atrial Fibrillation, Heart Failure, Diabetes Mellitus Additional Past Medical History / Comment(s): Renal Cancer, blood clot in heart History of Any Multi-Drug Resistant Organisms: None Reported Past Surgical History: Cardiac Ablation, Orthopedic Surgery Past Psychological History: No Psychological Hx Reported Smoking Status: Former smoker Past Alcohol Use History: None Reported Past Drug Use History: None Reported Medications and Allergies Home Medications Medication Instructions Recorded Confirmed Type Apixaban [Eliquis] 5 mg PO BID 05/25/23 05/25/23 History Atorvastatin [Lipitor] 10 mg PO DAILY 05/25/23 05/25/23 History Cholecalciferol [Vitamin D3 (25 25 mcg PO DAILY 05/25/23 05/25/23 History Mcg = 1000 Iu)] Cyanocobalamin (Vitamin B-12) 1,000 mcg PO DAILY 05/25/23 05/25/23 History [Vitamin B-12] Empagliflozin [Jardiance] 25 mg PO DAILY 05/25/23 05/25/23 History Fish Oil/Dha/Epa [Fish Oil 1,200 1 cap PO DAILY 05/25/23 05/25/23 History mg Fish Oil] Gabapentin 600 mg PO TID PRN 05/25/23 05/25/23 History HYDROcodone/APAP 5-325MG [[place] 1 tab PO TID PRN 05/25/23 05/25/23 History 5-325] Insulin Aspart [NovoLOG Flexpen] 40 units SQ AC-SUPPER 05/25/23 05/25/23 History Insulin Aspart [NovoLOG Flexpen] 60 units SQ AC-BRKFST 05/25/23 05/25/23 History Insulin Glargine,Hum.rec.anlog 38 units SQ HS 05/25/23 05/25/23 History [Lantus Solostar Pen] Metoprolol Succinate (ER) [Toprol 50 mg PO DAILY 05/25/23 05/25/23 History Xl] PARoxetine HCL [Paxil] 10 mg PO DAILY 05/25/23 05/25/23 History hydrALAZINE HCL [Apresoline] 10 mg PO TID 05/25/23 05/25/23 History hydrOXYzine pamoate [Vistaril] 25 mg PO QID PRN 05/25/23 05/25/23 History methocarbamoL [Methocarbamol] 500 - 1,000 mg PO QID PRN 05/25/23 05/25/23 History Allergies Allergy/AdvReac Type Severity Reaction Status Date / Time albuterol Allergy Swelling Verified 05/25/23 08:11 Surgical - Exam Vital Signs Temp Pulse Resp BP Pulse Ox 98 F 86 18 164/106 100 05/25/23 03:36 05/25/23 03:36 05/25/23 03:36 05/25/23 03:36 05/25/23 03:36 - General well developed, no distress - Eyes PERRL - ENT normal pinna - Neck no masses - Respiratory normal expansion - Cardiovascular Rhythm: regular - Abdomen Right upper quadrant pain Abdomen: soft Results - Labs 05/28/23 09:20 05/28/23 09:20 Abnormal Lab Results - Last 24 Hours (Table) 05/27/23 05/27/23 05/27/23 Range/Units 05:57 12:00 17:33 WBC (3.8-10.6) k/uL Plt Count (150-450) k/uL Sodium (137-145) mmol/L Carbon Dioxide 17.1 L (21.6-31.8) mmol/L Anion Gap 16.90 H (4.00-12.00) mmol/L BUN (9-20) mg/dL Creatinine (0.66-1.25) mg/dL BUN/Creatinine Ratio 9.14 L (12.00-20.00) Ratio Glucose 173 H (70-110) mg/dL POC Glucose (mg/dL) 388 H 286 H (70-110) mg/dL Calcium 8.6 L (8.7-10.3) mg/dL Total Bilirubin 1.7 H (0.3-1.2) mg/dL AST 48 H (14-35) U/L Total Protein 6.0 L (6.2-8.2) d/dL Albumin 3.5 L (3.8-4.9) d/dL Albumin/Globulin Ratio 1.40 L (1.60-3.17) Ratio 05/27/23 05/28/23 05/28/23 Range/Units 20:17 06:28 09:20 WBC 10.7 H (3.8-10.6) k/uL Plt Count 107 L (150-450) k/uL Sodium (137-145) mmol/L Carbon Dioxide (21.6-31.8) mmol/L Anion Gap (4.00-12.00) mmol/L BUN (9-20) mg/dL Creatinine (0.66-1.25) mg/dL BUN/Creatinine Ratio (12.00-20.00) Ratio Glucose (70-110) mg/dL POC Glucose (mg/dL) 301 H 216 H (70-110) mg/dL Calcium (8.7-10.3) mg/dL Total Bilirubin (0.3-1.2) mg/dL AST (14-35) U/L Total Protein (6.2-8.2) d/dL Albumin (3.8-4.9) d/dL Albumin/Globulin Ratio (1.60-3.17) Ratio 05/28/23 Range/Units 09:20 WBC (3.8-10.6) k/uL Plt Count (150-450) k/uL Sodium 136 L (137-145) mmol/L Carbon Dioxide 16 L (21.6-31.8) mmol/L Anion Gap (4.00-12.00) mmol/L BUN 22 H (9-20) mg/dL Creatinine 1.35 H (0.66-1.25) mg/dL BUN/Creatinine Ratio (12.00-20.00) Ratio Glucose 203 H (70-110) mg/dL POC Glucose (mg/dL) (70-110) mg/dL Calcium 7.6 L (8.7-10.3) mg/dL Total Bilirubin (0.3-1.2) mg/dL AST (14-35) U/L Total Protein 5.7 L (6.2-8.2) d/dL Albumin 2.9 L (3.8-4.9) d/dL Albumin/Globulin Ratio (1.60-3.17) Ratio Microbiology - Last 24 Hours (Table) 05/26/23 21:52 Blood Culture - Preliminary Blood 05/26/23 05:20 Blood Culture - Preliminary Blood Diabetes panel 05/27/23 05/28/23 Range/Units 05:57 09:20 Sodium 136 136 L (135-145) mmol/L Potassium 4.3 3.9 (3.5-5.5) mmol/L Chloride 102 106 (96-109) mmol/L Carbon Dioxide 17.1 L 16 L (21.6-31.8) mmol/L BUN 12.8 22 H (9.0-27.0) mg/dL Creatinine 1.4 1.35 H (0.6-1.5) mg/dL Glucose 173 H 203 H (70-110) mg/dL Calcium 8.6 L 7.6 L (8.7-10.3) mg/dL AST 48 H 37 (14-35) U/L ALT 46 40 (10-49) U/L Alkaline Phosphatase 63 66 (41-126) U/L Total Protein 6.0 L 5.7 L (6.2-8.2) d/dL Albumin 3.5 L 2.9 L (3.8-4.9) d/dL Calcium panel 05/27/23 05/28/23 Range/Units 05:57 09:20 Calcium 8.6 L 7.6 L (8.7-10.3) mg/dL Albumin 3.5 L 2.9 L (3.8-4.9) d/dL Pituitary panel 05/27/23 05/28/23 Range/Units 05:57 09:20 Sodium 136 136 L (135-145) mmol/L Potassium 4.3 3.9 (3.5-5.5) mmol/L Chloride 102 106 (96-109) mmol/L Carbon Dioxide 17.1 L 16 L (21.6-31.8) mmol/L BUN 12.8 22 H (9.0-27.0) mg/dL Creatinine 1.4 1.35 H (0.6-1.5) mg/dL Glucose 173 H 203 H (70-110) mg/dL Calcium 8.6 L 7.6 L (8.7-10.3) mg/dL Adrenal panel 05/27/23 05/28/23 Range/Units 05:57 09:20 Sodium 136 136 L (135-145) mmol/L Potassium 4.3 3.9 (3.5-5.5) mmol/L Chloride 102 106 (96-109) mmol/L Carbon Dioxide 17.1 L 16 L (21.6-31.8) mmol/L BUN 12.8 22 H (9.0-27.0) mg/dL Creatinine 1.4 1.35 H (0.6-1.5) mg/dL Glucose 173 H 203 H (70-110) mg/dL Calcium 8.6 L 7.6 L (8.7-10.3) mg/dL Total Bilirubin 1.7 H 1.2 (0.3-1.2) mg/dL AST 48 H 37 (14-35) U/L ALT 46 40 (10-49) U/L Alkaline Phosphatase 63 66 (41-126) U/L Total Protein 6.0 L 5.7 L (6.2-8.2) d/dL Albumin 3.5 L 2.9 L (3.8-4.9) d/dL Assessment and Plan Assessment: Probable subacute cholecystitis. Patient will be scheduled for laparoscopic cholecystectomy in the a.m.
[2023-05-28 11:38] LABS: Glucose,Whole Blood 261 mg/dL (70-110)
--- NOTE | 2023-05-28 15:47 | P.PN ---
Subjective Progress Note Date: 05/28/23 Hospital course: Hospital course: Patient is a very pleasant 47-year-old male with a past medical history of renal cancer, type 2 [id number] diabetes mellitus, hypertension, hyperlipidemia, atrial fibrillation status post cardiac ablation on anticoagulation with Eliquis, and anxiety. He presented to the emergency department with a chief complaint of chest pain. Patient reports sudden onset of severe pain to midsternal chest radiating into his back. Patient reports this pain came on at rest and has been a constant sharp pressure sensation associated with nausea. Patient denies experiencing any headache, lightheadedness, dizziness, palpitations, shortness of breath, cough or c ongestion, abdominal pain, vomiting, or experiencing any numbness/tingling/weakness/swelling in his extremities. Patient underwent full evaluation in the emergency department and upon arrival vital signs obtained showing blood pressure 164/106, heart rate 86, respiratory rate 18, temp 98.0F, and SpO2 of 100% on room air. EKG completed showing normal sinus rhythm at 78 bpm with no significant T-wave or ST abnormalities upon personal review and interpretation. X-ray completed lungs appear clear and radiology report stating negative for acute cardiopulmonary process. CTA thoracic/abdominal/pelvic aorta completed and radiology report reviewed stating no evidence for thoracic aortic dissection or aneurysm, circumferential wall thickening of the rectum without surrounding inflammatory changes, mild splenomegaly, and hepatic steatosis with a peripheral enhancing lesion within the right hepatic lobe likely hemangioma recommend further evaluation with CT or MR abdomen. Labs completed and r eviewed. CBC and coagulation profile unremarkable. BMP revealing mild acidosis with chloride 108, bicarb 13, and anion gap of 15. Hyperglycemia with glucose of 306. Liver profile revealing elevated ALT is 67. Troponin negative at less than 0.012. D-dimer negative at 0.31. Acetone negative. Discussed with ED physician and human resources vice president in detail. Patient was admitted under our services to observation unit with telemetry. Consult placed to both cardiology and hematology/oncology. Troponins were trended overnight all negative at less than 0.012. Lipid profile normal findings. Hemoglobin A1c elevated at 9.6%. Echocardiogram Completed revealing slightly impaired EF of 40-45% . On the evening of 05/26/23 patient spiking elevated temp of 102.9F and found to be tachycardic. Patient was found to have elevated WBC count of 15.7 and a lactate of 2.1. Secondary to these findings concerning for sepsis blood cultures were drawn and patient was started on IV antibiotics with Zosyn 3.375 g every 8 hours. Patient underwent a gallbladder ultrasound in radiology report stated gallbladder sludge with trace pericholecystic fluid and hepatic steatosis. General surgery consulted and evaluated patient planning for laparoscopic cholecystectomy 05/29/23. Physical exam: Vital signs reviewed and stable. Morning vitals unremarkable with blood pressure 123/86, heart rate 101, respiratory rate 16, SpO2 96% on room air and temperature 98.4F General: Nontoxic, no distress and appears stated age. Obese. Derm: Skin warm and dry, normal coloration for ethnicity. Head: Atraumatic, normocephalic and symmetric. Eyes: EOMs intact, no lid lag, and anicteric sclera Mouth: no lip lesions, mucus membranes moist Cardiovascular: regular rate and rhythm with normal S1S2, no murmur, positive posterior tibial pulses bilaterally, and cap refill < 2 seconds. Lungs: Respirations even, regular, and unlabored on room air. Lungs CTA bilaterally, no rhonchi, no rales, no wheezing, and no accessory muscle usage. Abdominal: soft, right upper quadrant pain upon palpation, no guarding, no appreciable organomegaly Ext: ROM intact. No gross muscle atrophy, no edema, no contractures Neuro: Speech clear, face symmetrical and CN II-XII grossly intact with no noted focal neuro deficits Psych: Alert and oriented to person, place, time, and situation. Appropriate and pleasant affect. Assessment and Plan of Care: Chest pain, acute coronary event ruled out Right upper quadrant pain accompanied by Epigastric pain/discomfort with nausea, secondary to suspected acute cholecystitis Sepsis likely secondary to suspected acute cholecystitis Liver hemangioma -Cardiology evaluated patient for reports of chest pain and ruled out an acute coronary event and clearing patient from cardiac perspective recommending outpatient follow-up with PCP. -Hematology/oncology consulted secondary to concerns of metastatic lesion/hemangioma of right upper lobe of liver with history of renal cancer and ordered MRI confirming liver hemangioma. - On the evening of 05/26/23 patient spiking elevated temp of 102.9F and found to be tachycardic. Patient was found to have elevated WBC count of 15.7 and a lactate of 2.1. -Secondary to the above findings concerning for sepsis blood cultures were drawn and patient was started on IV antibiotics with Zosyn 3.375 g every 8 hours (day 3 of antibiotics). -Patient underwent a gallbladder ultrasound and radiology report stated gallbladder sludge with trace pericholecystic fluid and hepatic steatosis. -General surgery consulted and evaluated patient planning for laparoscopic cholecystectomy 05/29/23. -Continue clear liquid diet, NPO at midnight. -Continue cardiac medication regimen Aspirin 81 mg daily, atorvastatin 10 mg daily, hydralazine 10 mg 3 times daily and metoprolol 50 mg daily. -Eliquis held secondary to plans for laparoscopic cholecystectomy scheduled 05/29/23, May resume once cleared by general surgeon -Continue symptomatic care and pain management. Hypertension, poorly controlled -Continue daily medication regimen with hydralazine 10 mg every 8 hours, metoprolol 50 mg daily, Type II [id number] diabetes mellitus with hyperglycemia -Hold Juardiance and patient placed on glycemic protocol with NovoLog sliding scale to obtain tight glycemic control throughout hospitalization. -Hemoglobin A1c elevated at 9.6%, patient will require additional medications upon discharge. Dieter review: -Morning vitals reviewed, .blood pressure 123/86, heart rate 101, respiratory rate 16, SpO2 96% on room air and temperature 98.4F -Morning labs reviewed Showing improvement of leukocytosis with WBC count down to 10.7 and platelet count of 107. BMP revealing stable but slightly elevated renal function with BUN of 22, creatinine 1.35, and GFR of 63. Glucose 203. Total bili improved down to 1.2 and no further elevation of liver enzymes. Imaging reviewed: -No new imaging for review CODE STATUS: Full code DVT prophylaxis: Eliquis Discussed with: Patient, RN, and general surgeon Anticipated discharge date: pending clinical course Anticipated discharge place: Home Patient was seen independently by Nurse Practitioner. This document was prepared using [employer] dictation software. Please allow for errors in software configuration specialist while rare they do occur. I reviewed the documentation as provided by the TRISTIN above, who is the original author of this note. I agree with the documented assessment and plan, with the following changes: none Objective - Vital Signs Vital signs: Vital Signs Temp 98.4 F 05/28/23 06:56 Pulse 101 H 05/28/23 06:56 Resp 16 05/28/23 06:56 BP 123/86 05/28/23 06:56 Pulse Ox 96 05/28/23 06:56 FiO2 Intake & Output 05/27/23 05/28/23 05/28/23 18:59 06:59 18:59 Intake Total 120 Output Total 1200 Balance -1080 Intake: Oral 120 Output: Urine 1200 Other: # Voids 2 - Labs CBC & Chem 7: 05/29/23 05:41 05/29/23 05:41 Labs: Abnormal Lab Results - Last 24 Hours (Table) 05/27/23 05/27/23 05/27/23 Range/Units 05:57 12:00 17:33 Carbon Dioxide 17.1 L (21.6-31.8) mmol/L Anion Gap 16.90 H (4.00-12.00) mmol/L BUN/Creatinine Ratio 9.14 L (12.00-20.00) Ratio Glucose 173 H (70-110) mg/dL POC Glucose (mg/dL) 388 H 286 H (70-110) mg/dL Calcium 8.6 L (8.7-10.3) mg/dL Total Bilirubin 1.7 H (0.3-1.2) mg/dL AST 48 H (14-35) U/L Total Protein 6.0 L (6.2-8.2) d/dL Albumin 3.5 L (3.8-4.9) d/dL Albumin/Globulin Ratio 1.40 L (1.60-3.17) Ratio 05/27/23 05/28/23 Range/Units 20:17 06:28 Carbon Dioxide (21.6-31.8) mmol/L Anion Gap (4.00-12.00) mmol/L BUN/Creatinine Ratio (12.00-20.00) Ratio Glucose (70-110) mg/dL POC Glucose (mg/dL) 301 H 216 H (70-110) mg/dL Calcium (8.7-10.3) mg/dL Total Bilirubin (0.3-1.2) mg/dL AST (14-35) U/L Total Protein (6.2-8.2) d/dL Albumin (3.8-4.9) d/dL Albumin/Globulin Ratio (1.60-3.17) Ratio Microbiology - Last 24 Hours (Table) 05/26/23 21:52 Blood Culture - Preliminary Blood 05/26/23 05:20 Blood Culture - Preliminary Blood
[2023-05-28 17:54] LABS: Glucose,Whole Blood 154 mg/dL (70-110)
[2023-05-28 20:10] LABS: Glucose,Whole Blood 274 mg/dL (70-110)
[2023-05-29] MEDS: PIPERACILLIN-TAZOBACTAM 3.375 GM in SODIUM CHLORIDE 0.9% 100 ML IVPB SCH ×3 (01:27→16:35)
[2023-05-29] MEDS: HYDROcodone/APAP 5-325MG 1 EACH TAB PO PRN ×2 (01:34→08:37)
[2023-05-29] MEDS: KETOROLAC 15 MG/ML 1 ML VIAL IVP PRN ×2 (04:06→10:45)
[2023-05-29] MEDS: ACETAMINOPHEN TAB 325 MG TAB PO PRN (04:06)
[2023-05-29 06:10] LABS: Glucose,Whole Blood 134 mg/dL (70-110)
[2023-05-29] MEDS: INSULIN ASPART (NovoLOG) 100 UNIT/ML VIAL SQ SCH ×4 (06:20→21:52)
[2023-05-29] MEDS: hydrALAZINE HCL 10 MG TAB PO SCH ×3 (08:21→21:11)
[2023-05-29] MEDS: METOPROLOL SUCCINATE (ER) 50 MG TAB.ER.24H PO SCH (08:21)
[2023-05-29] MEDS: PARoxetine 10 MG TAB PO SCH (08:21)
[2023-05-29] MEDS: ATORVASTATIN 10 MG TAB PO SCH (08:21)
[2023-05-29 08:46] LABS: ALT 49 U/L (10-49); AST 56 U/L (14-35); Albumin 2.9 d/dL (3.8-4.9); Albumin/Globulin Ratio 1.16 Ratio (1.60-3.17); Alkaline Phosphatase 55 U/L (41-126); Blood Urea Nitrogen 19.8 mg/dL (9.0-27.0); Calcium 7.7 mg/dL (8.7-10.3); Carbon Dioxide 16.5 mmol/L (21.6-31.8); Chloride 102 mmol/L (96-109); Globulin 2.5 d/dL (1.6-3.3); Glucose 148 mg/dL (70-110); Potassium 3.9 mmol/L (3.5-5.5); Sodium 134 mmol/L (135-145); Total Bilirubin 0.9 mg/dL (0.3-1.2); Total Protein 5.4 d/dL (6.2-8.2)
[2023-05-29 09:32] LABS: HCT 36.9 % (39.6-50.0); HGB 12.7 d/dL (12.0-15.0); MCH 30.5 pg (27.0-32.0); MCHC 34.4 d/dL (32.0-37.0); MCV 88.5 FL (80.0-97.0); Mean Platelet Volume 11.4 FL (9.5-12.2); NRBC Per 100 WBC 0 X 10*3/uL (0.00-0.01); Platelet Count 107 X 10*3/uL (140-440); RBC 4.17 X 10*6/uL (4.40-5.60); RDW 12.9 % (11.5-14.5); WBC 11.62 X 10*3/uL (4.50-10.00)
[2023-05-29 11:38] LABS: Glucose,Whole Blood 122 mg/dL (70-110)
[2023-05-29] MEDS ORDERED: HEPARIN SODIUM,PORCINE/PF 5,000 UNIT/0.5 ML SYRINGE SQ ONE (12:06)
[2023-05-29] MEDS ORDERED: ONDANSETRON 4 MG/2 ML VIAL ONE (12:06)
[2023-05-29] MEDS ORDERED: ONDANSETRON 4 MG/2 ML VIAL IVP ONE (12:14)
[2023-05-29] MEDS ORDERED: ACETAMINOPHEN TAB 500 MG TAB ONE (12:17)
--- NOTE | 2023-05-29 12:19 | P.PN ---
Subjective Progress Note Date: 05/29/23 CHIEF COMPLAINT: Subacute cholecystitis HISTORY OF PRESENT ILLNESS: Patient presented with right upper quadrant abdominal pain. Resting comfortably. Patient did have a fever of 101.1 this morning. WBC mildly elevated 11.6 hgb 12.7 platelets 106 sodium 134 potassium 3.9 creatinine 1.2 total bili 0.9 AST 56 ALT 49 alk phos 55 PHYSICAL EXAM: VITAL SIGNS: Reviewed. GENERAL: Well-developed in no acute distress. HEENT: No sclera icterus. Extraocular movements grossly intact. Moist buccal mucosa. Head is atraumatic, normocephalic. ABDOMEN: Soft. Nondistended. Right upper quadrant tenderness ASSESSMENT: 1. Probable subacute cholecystitis PLAN: -Patient scheduled for laparoscopic cholecystectomy today -Keep patient nothing by mouth -Continue supportive care Physician Physician Relations Specialist note has been reviewed by physician. Signing provider agrees with the documented findings, assessment, and plan of care. Objective - Vital Signs Vital signs: Vital Signs Temp 102.4 F H 05/29/23 12:07 Pulse 101 H 05/29/23 12:07 Resp 18 05/29/23 12:07 BP 124/76 05/29/23 12:07 Pulse Ox 95 05/29/23 12:07 FiO2 21 05/29/23 08:56 Intake & Output 05/28/23 05/29/23 05/29/23 18:59 06:59 18:59 Output Total 1700 750 Balance -1700 -750 Output: Urine 1700 750 Other: Voiding Method Toilet # Voids 1 - Labs CBC & Chem 7: 05/29/23 05:41 05/29/23 05:41 Labs: Abnormal Lab Results - Last 24 Hours (Table) 05/28/23 05/28/23 05/29/23 Range/Units 17:50 20:08 05:41 WBC 11.62 H (4.50-10.00) X 10*3/uL RBC 4.17 L (4.40-5.60) X 10*6/uL Hct 36.9 L (39.6-50.0) % Plt Count 107 L (140-440) X 10*3/uL Sodium (135-145) mmol/L Carbon Dioxide (21.6-31.8) mmol/L Anion Gap (4.00-12.00) mmol/L Glucose (70-110) mg/dL POC Glucose (mg/dL) 154 H 274 H (70-110) mg/dL Calcium (8.7-10.3) mg/dL AST (14-35) U/L Total Protein (6.2-8.2) d/dL Albumin (3.8-4.9) d/dL Albumin/Globulin Ratio (1.60-3.17) Ratio 05/29/23 05/29/23 05/29/23 Range/Units 05:41 06:08 11:36 WBC (4.50-10.00) X 10*3/uL RBC (4.40-5.60) X 10*6/uL Hct (39.6-50.0) % Plt Count (140-440) X 10*3/uL Sodium 134 L (135-145) mmol/L Carbon Dioxide 16.5 L (21.6-31.8) mmol/L Anion Gap 15.50 H (4.00-12.00) mmol/L Glucose 148 H (70-110) mg/dL POC Glucose (mg/dL) 134 H 122 H (70-110) mg/dL Calcium 7.7 L (8.7-10.3) mg/dL AST 56 H (14-35) U/L Total Protein 5.4 L (6.2-8.2) d/dL Albumin 2.9 L (3.8-4.9) d/dL Albumin/Globulin Ratio 1.16 L (1.60-3.17) Ratio Microbiology - Last 24 Hours (Table) 05/26/23 21:52 Blood Culture - Preliminary Blood 05/26/23 05:20 Blood Culture - Preliminary Blood
[2023-05-29 12:21] LABS: Glucose,Whole Blood 147 mg/dL (70-110)
[2023-05-29] MEDS ORDERED: LABETALOL 5 MG/ML VIAL MDV ONE (12:23)
[2023-05-29] MEDS ORDERED: GLYCOPYRROLATE 0.2 MG/ML 2 ML VIAL ONE (12:23)
[2023-05-29] MEDS ORDERED: NEOSTIGMINE 1 MG/ML 10 ML VIAL ONE (12:23)
[2023-05-29] MEDS ORDERED: MIDAZOLAM 2 MG/2 ML VIAL ONE (12:23)
[2023-05-29] MEDS ORDERED: LIDOCAINE 2% INJ 20 MG/ML (2 ML VIAL) ONE (12:23)
[2023-05-29] MEDS ORDERED: SUCCINYLCHOLINE CHLORIDE 200 MG/10 ML VIAL IV ONE (12:23)
[2023-05-29] MEDS ORDERED: fentaNYL (PF) 50 MCG/ML 2 ML AMP ONE (12:23)
[2023-05-29] MEDS ORDERED: ROCURONIUM 10 MG/ML (5 ML VIAL) IV ONE (12:23)
[2023-05-29] MEDS ORDERED: PROPOFOL 10 MG/ML 20 ML VIAL IV ONE (12:23)
[2023-05-29] MEDS ORDERED: IV FLUID CONTINUATION 1,000 ML IV ONE (12:24)
[2023-05-29] MEDS ORDERED: LACTATED RINGERS 1,000 ML IV ONE ×4 (12:24→13:40)
[2023-05-29] MEDS ORDERED: ACETAMINOPHEN TAB 500 MG TAB PO ONE (12:25)
[2023-05-29] MEDS ORDERED: HEPARIN SODIUM,PORCINE 5,000 UNIT/ML 1 ML VIAL SQ ONE (12:25)
[2023-05-29] MEDS ORDERED: BUPIVACAINE (PF) 0.25% 30 ML VIAL SQ ONE ×2 (12:26→12:40)
[2023-05-29] MEDS ORDERED: ONDANSETRON 4 MG/2 ML VIAL IVP PRN (13:17)
[2023-05-29] MEDS ORDERED: NALOXONE 0.4 MG/ML 1 ML VIAL IV PRN (13:17)
--- NOTE | 2023-05-29 13:20 | P.PN ---
Subjective Progress Note Date: 05/29/23 Principal diagnosis: hepatic lesion At today's visit patient is resting comfortably in bed. Discussed findings of MRI of liver and gallbladder ultrasound with patient. Patient is awaiting laparoscopic cholecystectomy today with Dr. De La Vega. Patient denies pain at this time. Objective - Vital Signs Vital signs: Vital Signs Temp 102.4 F H 05/29/23 12:07 Pulse 101 H 05/29/23 12:07 Resp 18 05/29/23 12:07 BP 124/76 05/29/23 12:07 Pulse Ox 95 05/29/23 12:07 FiO2 21 05/29/23 08:56 Intake & Output 05/28/23 05/29/23 05/29/23 18:59 06:59 18:59 Intake Total 100 Output Total 1700 750 Balance -1700 -750 100 Intake: IV 100 Output: Urine 1700 750 Other: Voiding Method Toilet # Voids 1 - Constitutional General appearance: Present: no acute distress, obese - EENT Eyes: Present: anicteric sclerae, EOMI ENT: Present: hearing grossly normal - Respiratory Details: breathing is even and unlabored - Cardiovascular Details: skin is warm and dry - Integumentary Integumentary: Absent: cyanotic - Neurologic Neurologic Comment(s): grossly intact - Musculoskeletal Musculoskeletal: Present: strength equal bilaterally - Psychiatric Psychiatric: Present: A&O x's 3 - Labs CBC & Chem 7: 05/29/23 05:41 05/29/23 05:41 Labs: Abnormal Lab Results - Last 24 Hours (Table) 05/28/23 05/28/23 05/29/23 Range/Units 17:50 20:08 05:41 WBC 11.62 H (4.50-10.00) X 10*3/uL RBC 4.17 L (4.40-5.60) X 10*6/uL Hct 36.9 L (39.6-50.0) % Plt Count 107 L (140-440) X 10*3/uL Sodium (135-145) mmol/L Carbon Dioxide (21.6-31.8) mmol/L Anion Gap (4.00-12.00) mmol/L Glucose (70-110) mg/dL POC Glucose (mg/dL) 154 H 274 H (70-110) mg/dL Calcium (8.7-10.3) mg/dL AST (14-35) U/L Total Protein (6.2-8.2) d/dL Albumin (3.8-4.9) d/dL Albumin/Globulin Ratio (1.60-3.17) Ratio 05/29/23 05/29/23 05/29/23 Range/Units 05:41 06:08 11:36 WBC (4.50-10.00) X 10*3/uL RBC (4.40-5.60) X 10*6/uL Hct (39.6-50.0) % Plt Count (140-440) X 10*3/uL Sodium 134 L (135-145) mmol/L Carbon Dioxide 16.5 L (21.6-31.8) mmol/L Anion Gap 15.50 H (4.00-12.00) mmol/L Glucose 148 H (70-110) mg/dL POC Glucose (mg/dL) 134 H 122 H (70-110) mg/dL Calcium 7.7 L (8.7-10.3) mg/dL AST 56 H (14-35) U/L Total Protein 5.4 L (6.2-8.2) d/dL Albumin 2.9 L (3.8-4.9) d/dL Albumin/Globulin Ratio 1.16 L (1.60-3.17) Ratio 05/29/23 Range/Units 12:11 WBC (4.50-10.00) X 10*3/uL RBC (4.40-5.60) X 10*6/uL Hct (39.6-50.0) % Plt Count (140-440) X 10*3/uL Sodium (135-145) mmol/L Carbon Dioxide (21.6-31.8) mmol/L Anion Gap (4.00-12.00) mmol/L Glucose (70-110) mg/dL POC Glucose (mg/dL) 147 H (70-110) mg/dL Calcium (8.7-10.3) mg/dL AST (14-35) U/L Total Protein (6.2-8.2) d/dL Albumin (3.8-4.9) d/dL Albumin/Globulin Ratio (1.60-3.17) Ratio Microbiology - Last 24 Hours (Table) 05/26/23 05:20 Blood Culture - Preliminary Blood 05/26/23 21:52 Blood Culture - Preliminary Blood - Imaging and Cardiology US - abdomen: report reviewed MRI liver reviewed Assessment and Plan (1) Liver lesion, right lobe Current Visit: Yes Status: Acute Priority: High Code(s): K76.9 - LIVER DISEASE, UNSPECIFIED SNOMED Code(s): 171730755 Plan: Right hepatic lobe lesion: -CT angiogram of thoracic/abdomen and pelvis revealed hepatic steatosis with a peripheral enhancing lesion within the right hepatic lobe measuring 3.4 cm, probable hemangioma. -AST and ALP within normal limits. ALT elevated at 67. Bilirubin normal. WBC/hgb/platelets stable -Hx of renal carcinoma in 2019, currently in observation. No active treatment. Has upcoming f/u apt. No reported constitutional symptoms -Liver MRI noted lesion being consistent with hemangioma with no other radiographic findings concerning for malignancy -We discussed that this is a benign lesion and is not related to his prior history of renal cell carcinoma -From an oncology perspective, this requires no additional work-up Subacute cholecystitis: -Gallbladder ultrasound revealed gallbladder sludge with trace pericholecystic fluid. With no definitive evidence for acute cholecystitis. Hepatic steatosis. Plan is for laproscopic cholecystectomy with Dr. Bailey for probable subacute cholecystitis -Defer management to IM and surgery
--- NOTE | 2023-05-29 14:53 | P.PN ---
Subjective Progress Note Date: 05/28/23 Principal diagnosis: Fever possible cholecystitis Patient is a 47-year-old male with a past medical history negative for diabetes mellitus heart failure atrial fibrillation present to the hospital with chest pain and a half in the right upper quadrant area patient did have a fever and elevated white count and concern for possible cholecystitis. On today's evaluation that is 05/28/2023, patient did have low-grade fever of 100.5 after midnight, the patient is afebrile since then, patient feeling slightly better and is breathing comfortably on room air no chest pain occasional nausea no abdominal pain no diarrhea Objective - Vital Signs Vital signs: Vital Signs Temp 99.6 F 05/28/23 19:05 Pulse 118 H 05/28/23 19:05 Resp 18 05/28/23 19:05 BP 134/84 05/28/23 19:05 Pulse Ox 96 05/28/23 19:05 FiO2 Intake & Output 05/28/23 05/28/23 05/29/23 06:59 18:59 06:59 Output Total 1700 Balance -1700 Output: Urine 1700 Other: # Voids 2 - Exam GENERAL DESCRIPTION: Middle-age male lying in bed in no distress RESPIRATORY SYSTEM: Unlabored breathing , decreased breath sounds at bases HEART: S1 S2 regular rate and rhythm , ABDOMEN: Soft , no tenderness EXTREMITIES: No edema feet - Labs CBC & Chem 7: 05/29/23 05:41 05/29/23 05:41 Labs: Abnormal Lab Results - Last 24 Hours (Table) 05/27/23 05/28/23 05/28/23 Range/Units 20:17 06:28 09:20 WBC 10.7 H (3.8-10.6) k/uL Plt Count 107 L (150-450) k/uL Sodium (137-145) mmol/L Carbon Dioxide (22-30) mmol/L BUN (9-20) mg/dL Creatinine (0.66-1.25) mg/dL Glucose (74-99) mg/dL POC Glucose (mg/dL) 301 H 216 H (70-110) mg/dL Calcium (8.4-10.2) mg/dL Total Protein (6.3-8.2) g/dL Albumin (3.5-5.0) g/dL 05/28/23 05/28/23 05/28/23 Range/Units 09:20 11:36 17:50 WBC (3.8-10.6) k/uL Plt Count (150-450) k/uL Sodium 136 L (137-145) mmol/L Carbon Dioxide 16 L (22-30) mmol/L BUN 22 H (9-20) mg/dL Creatinine 1.35 H (0.66-1.25) mg/dL Glucose 203 H (74-99) mg/dL POC Glucose (mg/dL) 261 H 154 H (70-110) mg/dL Calcium 7.6 L (8.4-10.2) mg/dL Total Protein 5.7 L (6.3-8.2) g/dL Albumin 2.9 L (3.5-5.0) g/dL 05/28/23 Range/Units 20:08 WBC (3.8-10.6) k/uL Plt Count (150-450) k/uL Sodium (137-145) mmol/L Carbon Dioxide (22-30) mmol/L BUN (9-20) mg/dL Creatinine (0.66-1.25) mg/dL Glucose (74-99) mg/dL POC Glucose (mg/dL) 274 H (70-110) mg/dL Calcium (8.4-10.2) mg/dL Total Protein (6.3-8.2) g/dL Albumin (3.5-5.0) g/dL Microbiology - Last 24 Hours (Table) 05/26/23 05:20 Blood Culture - Preliminary Blood 05/26/23 21:52 Blood Culture - Preliminary Blood Assessment and Plan (1) Fever Current Visit: Yes Status: Acute Code(s): R50.9 - FEVER, UNSPECIFIED SNOMED Code(s): 309235366 (2) Acute cholecystitis Current Visit: Yes Status: Acute Code(s): K81.0 - ACUTE CHOLECYSTITIS S NOMED Code(s): 34098440 Plan: 1patient with sepsis in this patient with fever tachycardia elevated white count he did have epigastric and right upper quadrant pain with abnormal CT and MRI high clinical suspicious for acute cholecystitis and we will need to call for the enteric gram-negative to be the likely pathogen 2- ultrasound of the gallbladder area suspicious for colon status and surgery is planned for cholecystectomy in the morning 3-patient to continue with the Zosyn Time with Patient: Less than 30
[2023-05-29] MEDS: HYDROmorphone 0.5 MG/0.5 ML SYRINGE IVP PRN ×2 (16:49→21:11)
[2023-05-29 17:23] LABS: Glucose,Whole Blood 179 mg/dL (70-110)
--- NOTE | 2023-05-29 18:19 | P.PN ---
Subjective Progress Note Date: 05/29/23 Hospital course: Patient is a very pleasant 47-year-old male with a past medical history of renal cancer, type 2 [id number]-[id number] diabetes mellitus, hypertension, hyperlipidemia, atrial fibrillation status post cardiac ablation on antic oagulation with Eliquis, and anxiety. He presented to the emergency department with a chief complaint of chest pain. Patient reports sudden onset of severe pain to midsternal chest radiating into his back. Patient reports this pain came on at rest and has been a constant sharp pressure sensation associated with nausea. Patient denies experiencing any headache, lightheadedness, dizziness, palpitations, shortness of breath, cough or congestion, abdominal pain, vomiting, or experiencing any numbness/tingling/weakness/swelling in his extremities. Patient underwent full evaluation in the emergency department and upon arrival vital signs obtained showing blood pressure 164/106, heart rate 86, respiratory rate 18, temp 98.0F, and SpO2 of 100% on room air. EKG completed showing normal sinus rhythm at 78 bpm with no significant T-wave or ST abnormalities upon personal review and interpretation. X-ray completed lungs appear clear and radiology report stating negative for acute cardiopulmonary process. CTA thoracic/abdominal/pelvic aorta completed and radiology report reviewed stating no evidence for thoracic aortic dissection or aneurysm, circumferential wall thickening of the rectum without surrounding inflammatory changes, mild splenomegaly, and hepatic steatosis with a peripheral enhancing lesion within the right hepatic lobe likely hemangioma recommend further evaluation with CT or MR abdomen. Labs completed and reviewed. CBC and coagulation profile unremarkable. BMP revealing mild acidosis with chloride 108, bicarb 13, and anion gap of 15. Hyperglycemia with glucose of 306. Liver profile revealing elevated ALT is 67. Troponin negative at less than 0.012. D-dimer negative at 0.31. Acetone negative. Discussed with ED physician and youth counselor in detail. Patient was admitted under our services to observation unit with telemetry. Consult placed to both cardiology and hematology/oncology. Troponins were trended overnight all negative at less than 0.012. Lipid profile normal findings. Hemoglobin A1c elevated at 9.6%. Echocardiogram Completed revealing slightly impaired EF of 40-45% . Cardiology evaluated patient for reports of chest pain and ruled out an acute coronary event and clearing patient from cardiac perspective recommending outpatient follow-up with PCP. Hematology/oncology consulted secondary to concerns of metastatic lesion/hemangioma of right upper lobe of liver with history of renal cancer and ordered MRI confirming liver hemangioma. On the evening of 05/26/23 patient spiking elevated temp of 102.9F and found to be tachycardic. Patient was found to have elevated WBC count of 15.7 and a lactate of 2.1. Secondary to these findings concerning for sepsis blood cultures were drawn and patient was started on IV antibiotics with Zosyn 3.375 g every 8 hours. Patient underwent a gallbladder ultrasound in radiology report stated gallbladder sludge with trace pericholecystic fluid and hepatic steatosis. General surgery consulted and evaluated patient planning for laparoscopic cholecystectomy later today. Physical exam: Patient seen and fully evaluated at bedside. He reports continued pain to right upper quadrant but denies having any nausea, vomiting, chest pain, or shortness of breath at this time. Patient is scheduled to undergo laparoscopic cholecystectomy later today with Dr. De La Vega. Vital signs reviewed and stable. Morning vitals unremarkable with blood pressure 125/79, heart rate 84, respiratory rate 16, and SpO2 of 95% on room air with temp 98.1F. Patient did have elevated temperature earlier this morning of 101.1F and medicated as previously ordered. General: Nontoxic, no distress and appears stated age. Obese. Derm: Skin warm and dry, normal coloration for ethnicity. Head: Atraumatic, normocephalic and symmetric. Eyes: EOMs intact, no lid lag, and anicteric sclera Mouth: no lip lesions, mucus membranes moist Cardiovascular: regular rate and rhythm with normal S1S2, no murmur, positive posterior tibial pulses bilaterally, and cap refill < 2 seconds. Lungs: Respirations even, regular, and unlabored on room air. Lungs CTA bilaterally, no rhonchi, no rales, no wheezing, and no accessory muscle usage. Abdominal: soft, right upper quadrant pain upon palpation, no guarding, no appreciable organomegaly Ext: ROM intact. No gross muscle atrophy, no edema, no contractures Neuro: Speech clear, face symmetrical and CN II-XII grossly intact with no noted focal neuro deficits Psych: Alert and oriented to person, place, time, and situation. Appropriate and pleasant affect. Assessment and Plan of Care: Acute cholecystitis Sepsis secondary to acute cholecystitis Right upper quadrant pain secondary to above Liver hemangioma -Continue IV antibiotics with Zosyn 3.375 g every 8 hours. -Continue Tylenol 650 mg by mouth every 6 hours as needed for mild pain/fever. -General surgery following and discussed plan of care with general surgeon states patient to undergo laparoscopic cholecystectomy later today. -NPO until surgery is completed and then Diet to be advanced as recommended by general surgeon. -Eliquis held secondary to plans for laparoscopic cholecystectomy scheduled 05/29/23, May resume once cleared by general surgeon -Continue symptomatic care and pain management. Hypertension, poorly controlled -Continue daily medication regimen with hydralazine 10 mg every 8 hours, metoprolol 50 mg daily, Type II [id number] diabetes mellitus with hyperglycemia -Hold Juardiance and patient placed on glycemic protocol with NovoLog sliding scale to obtain tight glycemic control throughout hospitalization. -Hemoglobin A1c elevated at 9.6%, patient to resume home insulin coverage upon discharge. Chest pain, acute coronary event ruled out -Cardiology evaluated patient for reports of chest pain and ruled out an acute coronary event and clearing patient from cardiac perspective recommending outpatient follow-up with PCP. -Continue cardiac medication regimen Aspirin 81 mg daily, atorvastatin 10 mg daily, hydralazine 10 mg 3 times daily and metoprolol 50 mg daily. -Eliquis held secondary to plans for laparoscopic cholecystectomy scheduled 05/29/23, May resume once cleared by general surgeon Data review: -Morning vitals reviewed, Morning vitals unremarkable with blood pressure 125/79, heart rate 84, respiratory rate 16, and SpO2 of 95% on room air with temp 98.1F. Patient did have elevated temperature earlier this morning of 101.1F and medicated as previously ordered. -Morning labs reviewed. CBC revealing leukocytosis with WBC count of 11.62 and thrombocytopenia with platelet count of 107. BMP revealing mild hyponatremia with sodium of 134, hypocarbia with bicarb of 16.5, and elevated anion gap of 15.50. Glucose 148. Liver enzymes revealed total bili reducing down to 0.9 and AST slightly elevated at 56. Imaging reviewed: -No new imaging for review CODE STATUS: Full code DVT prophylaxis: Eliquis to be resumed once cleared by general surgery Discussed with: Patient, RN, and general surgeon Anticipated discharge date: pending clinical course Anticipated discharge place: Home Patient was seen independently by Nurse Practitioner. This document was prepared using [employer] dictation software. Please allow for errors in log rafter while rare they do occur. I reviewed the documentation as provided by the TRISTIN above, who is the original author of this note. I agree with the documented assessment and plan, with the following changes: none Objective - Vital Signs Vital signs: Vital Signs Temp 98.1 F 05/29/23 06:55 Pulse 84 05/29/23 06:55 Resp 16 05/29/23 06:55 BP 125/79 05/29/23 06:55 Pulse Ox 95 05/29/23 08:56 FiO2 21 05/29/23 08:56 Intake & Output 05/28/23 05/29/23 05/29/23 18:59 06:59 18:59 Output Total 1700 750 Balance -1700 -750 Output: Urine 1700 750 Other: # Voids 1 - Labs CBC & Chem 7: 05/29/23 05:41 05/29/23 05:41 Labs: Abnormal Lab Results - Last 24 Hours (Table) 05/28/23 05/28/23 05/28/23 Range/Units 09:20 09:20 11:36 WBC 10.7 H (3.8-10.6) k/uL Plt Count 107 L (150-450) k/uL Sodium 136 L (137-145) mmol/L Carbon Dioxide 16 L (22-30) mmol/L Anion Gap (4.00-12.00) mmol/L BUN 22 H (9-20) mg/dL Creatinine 1.35 H (0.66-1.25) mg/dL Glucose 203 H (74-99) mg/dL POC Glucose (mg/dL) 261 H (70-110) mg/dL Calcium 7.6 L (8.4-10.2) mg/dL AST (14-35) U/L Total Protein 5.7 L (6.3-8.2) g/dL Albumin 2.9 L (3.5-5.0) g/dL Albumin/Globulin Ratio (1.60-3.17) Ratio 05/28/23 05/28/23 05/29/23 Range/Units 17:50 20:08 05:41 WBC (3.8-10.6) k/uL Plt Count (150-450) k/uL Sodium 134 L (137-145) mmol/L Carbon Dioxide 16.5 L (22-30) mmol/L Anion Gap 15.50 H (4.00-12.00) mmol/L BUN (9-20) mg/dL Creatinine (0.66-1.25) mg/dL Glucose 148 H (74-99) mg/dL POC Glucose (mg/dL) 154 H 274 H (70-110) mg/dL Calcium 7.7 L (8.4-10.2) mg/dL AST 56 H (14-35) U/L Total Protein 5.4 L (6.3-8.2) g/dL Albumin 2.9 L (3.5-5.0) g/dL Albumin/Globulin Ratio 1.16 L (1.60-3.17) Ratio 05/29/23 Range/Units 06:08 WBC (3.8-10.6) k/uL Plt Count (150-450) k/uL Sodium (137-145) mmol/L Carbon Dioxide (22-30) mmol/L Anion Gap (4.00-12.00) mmol/L BUN (9-20) mg/dL Creatinine (0.66-1.25) mg/dL Glucose (74-99) mg/dL POC Glucose (mg/dL) 134 H (70-110) mg/dL Calcium (8.4-10.2) mg/dL AST (14-35) U/L Total Protein (6.3-8.2) g/dL Albumin (3.5-5.0) g/dL Albumin/Globulin Ratio (1.60-3.17) Ratio Microbiology - Last 24 Hours (Table) 05/26/23 21:52 Blood Culture - Preliminary Blood 05/26/23 05:20 Blood Culture - Preliminary Blood
[2023-05-29 21:35] LABS: Glucose,Whole Blood 161 mg/dL (70-110)
[2023-05-30] MEDS: MORPHINE SULFATE 4 MG/ML SYRINGE IVP PRN (00:21)
[2023-05-30] MEDS: PIPERACILLIN-TAZOBACTAM 3.375 GM in SODIUM CHLORIDE 0.9% 100 ML IVPB SCH ×3 (00:22→16:51)
[2023-05-30] MEDS: HYDROmorphone 0.5 MG/0.5 ML SYRINGE IVP PRN ×3 (02:30→21:08)
[2023-05-30 06:15] LABS: Glucose,Whole Blood 222 mg/dL (70-110)
[2023-05-30] MEDS: KETOROLAC 15 MG/ML 1 ML VIAL IVP PRN ×2 (06:17→12:10)
[2023-05-30] MEDS: INSULIN ASPART (NovoLOG) 100 UNIT/ML VIAL SQ SCH ×4 (06:20→21:08)
--- NOTE | 2023-05-30 07:43 | P.OP ---
Date of Procedure: 05/29/23 Preoperative Diagnosis: Cholecystitis Postoperative Diagnosis: Acute gangrenous cholecystitis Procedure(s) Performed: Laparoscopic cholecystectomy Anesthesia: BANG Surgeon: Hunter De La Vega Estimated Blood Loss (ml): 30 Pathology: other (Gallbladder) Condition: stable Disposition: PACU Description of Procedure: The patient was placed on the operating table. The patient received a general endotracheal tube anesthesia. The patients abdomen was prepped and draped in the usual sterile fashion. Through an infraumbilical stab incision, the fascia of the anterior abdominal wall was grasped with a pair of Kochers and then the Veress needle was placed in the peritoneal cavity. Position of the Veress needle was confirmed with positive drop test. The abdomen was then insufflated. After adequate insufflation, the 10 mm trocar was placed in the peritoneal cavity. Following this the laparoscope was placed in the peritoneal cavity. The patient was placed in the head-up, right side up position and then a 5 mm trocar was placed in the right lateral and right subcostal position under direct visualization. A 8 mm trocar was placed in the epigastric position. There was a dense inflammatory reaction upper quadrant. The omentum was peeled back. The gallbladder appeared to have gangrenous cholecystitis. The gallbladder was grasped in the fundus and infundibulum. Traction on the gallbladder was placed in the lateral and the cephalad positions. The triangle of Calot was visualized.. The cystic duct was bluntly dissected until the union of the cystic duct and common bile duct was seen. A critical view of safety was achieved. The cystic duct was then divided and sealed with the Harmonic scissors. A PDS Endoloop was then placed throughout the cystic duct stump. The cystic artery divided and sealed with the Harmonic scissors. The gallbladder was then removed from the liver bed using Harmonic scissors. The gallbladder was then extracted through the epigastric port site. Operative field was checked for any bleeding spots and Harmonic scissors was used to coagulate the liver bed. The abdomen was irrigated. A KRISHAN drain is placed in the upper quadrant brought out through 5 mm trocar site. The trocars were removed. The skin was closed using interrupted 3-0 Vicryl suture. Dermabond dressing were applied. The patient tolerated the procedure well.
[2023-05-30] MEDS: hydrALAZINE HCL 10 MG TAB PO SCH ×3 (09:36→21:09)
[2023-05-30] MEDS: PARoxetine 10 MG TAB PO SCH (09:36)
[2023-05-30] MEDS: ATORVASTATIN 10 MG TAB PO SCH (09:36)
[2023-05-30] MEDS: METOPROLOL SUCCINATE (ER) 50 MG TAB.ER.24H PO SCH (09:36)
[2023-05-30 11:58] LABS: Basophils # (A) 0.02 X 10*3/uL (0.00-0.10); Basophils % (A) 0.2 %; Eosinophils # (A) 0.01 X 10*3/uL (0.04-0.35); Eosinophils % (A) 0.1 %; HCT 38.7 % (39.6-50.0); HGB 12.8 d/dL (12.0-15.0); Lymphocytes # (A) 1.09 X 10*3/uL (0.90-5.00); Lymphocytes % (A) 11.3 %; MCH 29.9 pg (27.0-32.0); MCHC 33.1 d/dL (32.0-37.0); MCV 90.4 FL (80.0-97.0); Mean Platelet Volume 10.9 FL (9.5-12.2); Monocytes # (A) 0.74 X 10*3/uL (0.20-1.00); Monocytes % (A) 7.7 %; NRBC Per 100 WBC 0 X 10*3/uL (0.00-0.01); Neutrophils # (A) 7.75 X 10*3/uL (1.80-7.70); Neutrophils % (A) 80.1 %; Platelet Count 175 X 10*3/uL (140-440); RBC 4.28 X 10*6/uL (4.40-5.60); RBC Morphology Normal (Normal); RDW 13.2 % (11.5-14.5); WBC 9.67 X 10*3/uL (4.50-10.00)
[2023-05-30 12:01] LABS: ALT 74 U/L (10-49); AST 80 U/L (14-35); Albumin/Globulin Ratio 1.03 Ratio (1.60-3.17); Alkaline Phosphatase 76 U/L (41-126); Blood Urea Nitrogen 20.8 mg/dL (9.0-27.0); Calcium 8.3 mg/dL (8.7-10.3); Carbon Dioxide 19.1 mmol/L (21.6-31.8); Chloride 101 mmol/L (96-109); Globulin 2.9 d/dL (1.6-3.3); Glucose 227 mg/dL (70-110); Potassium 4.4 mmol/L (3.5-5.5); Sodium 133 mmol/L (135-145); Total Bilirubin 0.7 mg/dL (0.3-1.2); Total Protein 5.9 d/dL (6.2-8.2)
[2023-05-30 12:14] LABS: Glucose,Whole Blood 262 mg/dL (70-110)
--- NOTE | 2023-05-30 13:32 | P.PN ---
Subjective Progress Note Date: 05/30/23 CHIEF COMPLAINT: Gangrenous cholecystitis HISTORY OF PRESENT ILLNESS: Patient postop day #1 status post laparoscopic cholecystectomy for acute gangrenous cholecystitis. Patient lying in bedside chair comfortably. Reports his pain is controlled. Denies any nausea or vomiting. No flatus. KRISHAN drain with 70 mL serosanguineous output PHYSICAL EXAM: VITAL SIGNS: Reviewed. GENERAL: Well-developed in no acute distress. HEENT: No sclera icterus. Extraocular movements grossly intact. Moist buccal mucosa. Head is atraumatic, normocephalic. ABDOMEN: Soft. Nondistended. Incision sites clean dry and intact. KRISHAN drain in place ASSESSMENT: 1. Acute gangrenous cholecystitis status post laparoscopic cholecystectomy PLAN: -Advance diet to consistent carbohydrate -Continue antibiotics -Continue pain management -Encouraged patient to ambulate -Encouraged patient to use incentive spirometer -Okay to Hep-Lock fluids -Continue to hold Eliquis Physician [employer] note has been reviewed by physician. Signing provider agrees with the documented findings, assessment, and plan of care. Objective - Vital Signs Vital signs: Vital Signs Temp 98.3 F 05/30/23 07:00 Pulse 81 05/30/23 07:00 Resp 18 05/30/23 07:00 BP 134/76 05/30/23 07:00 Pulse Ox 96 05/30/23 08:29 FiO2 21 05/30/23 08:29 Intake & Output 05/29/23 05/30/23 05/30/23 18:59 06:59 18:59 Intake Total 1400 118 Output Total 205 40 30 Balance 1195 -40 88 Intake: IV 1400 Oral 118 Output: Drainage 40 40 30 Abdomen 40 40 30 Estimated Blood Loss 165 Other: Voiding Method Toilet Toilet # Voids 0 4 - Labs CBC & Chem 7: 05/30/23 06:26 05/30/23 06:26 Labs: Abnormal Lab Results - Last 24 Hours (Table) 05/29/23 05/29/23 05/29/23 Range/Units 12:11 17:21 21:34 RBC (4.40-5.60) X 10*6/uL Hct (39.6-50.0) % Neutrophils # (1.80-7.70) X 10*3/uL Eosinophils # (0.04-0.35) X 10*3/uL Sodium (135-145) mmol/L Carbon Dioxide (21.6-31.8) mmol/L Anion Gap (4.00-12.00) mmol/L Glucose (70-110) mg/dL POC Glucose (mg/dL) 147 H 179 H 161 H (70-110) mg/dL Calcium (8.7-10.3) mg/dL AST (14-35) U/L ALT (10-49) U/L Total Protein (6.2-8.2) d/dL Albumin (3.8-4.9) d/dL Albumin/Globulin Ratio (1.60-3.17) Ratio 05/30/23 05/30/23 05/30/23 Range/Units 06:07 06:26 06:26 RBC 4.28 L (4.40-5.60) X 10*6/uL Hct 38.7 L (39.6-50.0) % Neutrophils # 7.75 H (1.80-7.70) X 10*3/uL Eosinophils # 0.01 L (0.04-0.35) X 10*3/uL Sodium 133 L (135-145) mmol/L Carbon Dioxide 19.1 L (21.6-31.8) mmol/L Anion Gap 12.90 H (4.00-12.00) mmol/L Glucose 227 H (70-110) mg/dL POC Glucose (mg/dL) 222 H (70-110) mg/dL Calcium 8.3 L (8.7-10.3) mg/dL AST 80 H (14-35) U/L ALT 74 H (10-49) U/L Total Protein 5.9 L (6.2-8.2) d/dL Albumin 3.0 L (3.8-4.9) d/dL Albumin/Globulin Ratio 1.03 L (1.60-3.17) Ratio Microbiology - Last 24 Hours (Table) 05/26/23 21:52 Blood Culture - Preliminary Blood 05/26/23 05:20 Blood Culture - Preliminary Blood
[2023-05-30] MEDS: HYDROcodone/APAP 5-325MG 1 EACH TAB PO PRN (16:51)
[2023-05-30 17:29] LABS: Glucose,Whole Blood 222 mg/dL (70-110)
--- NOTE | 2023-05-30 17:48 | P.PN ---
Subjective Progress Note Date: 05/30/23 Hospital course: Patient is a very pleasant 47-year-old male with a past medical history of renal cancer, type 2 [id number] diabetes mellitus, hypertension, hyperlipidemia, atrial fibrillation status post cardiac ablation on antic oagulation with Eliquis, and anxiety. He presented to the emergency department with a chief complaint of chest pain. Patient reports sudden onset of severe pain to midsternal chest radiating into his back. Patient reports this pain came on at rest and has been a constant sharp pressure sensation associated with nausea. Patient denies experiencing any headache, lightheadedness, dizziness, palpitations, shortness of breath, cough or congestion, abdominal pain, vomiting, or experiencing any numbness/tingling/weakness/swelling in his extremities. Patient underwent full evaluation in the emergency department and upon arrival vital signs obtained showing blood pressure 164/106, heart rate 86, respiratory rate 18, temp 98.0F, and SpO2 of 100% on room air. EKG completed showing normal sinus rhythm at 78 bpm with no significant T-wave or ST abnormalities upon personal review and interpretation. X-ray completed lungs appear clear and radiology report stating negative for acute cardiopulmonary process. CTA thoracic/abdominal/pelvic aorta completed and radiology report reviewed stating no evidence for thoracic aortic dissection or aneurysm, circumferential wall thickening of the rectum without surrounding inflammatory changes, mild splenomegaly, and hepatic steatosis with a peripheral enhancing lesion within the right hepatic lobe likely hemangioma recommend further evaluation with CT or MR abdomen. Labs completed and reviewed. CBC and coagulation profile unremarkable. BMP revealing mild acidosis with chloride 108, bicarb 13, and anion gap of 15. Hyperglycemia with glucose of 306. Liver profile revealing elevated ALT is 67. Troponin negative at less than 0.012. D-dimer negative at 0.31. Acetone negative. Discussed with ED physician and timber watchman in detail. Patient was admitted under our services to observation unit with telemetry. Consult placed to both cardiology and hematology/oncology. Troponins were trended overnight all negative at less than 0.012. Lipid profile normal findings. Hemoglobin A1c elevated at 9.6%. Echocardiogram Completed revealing slightly impaired EF of 40-45% . Cardiology evaluated patient for reports of chest pain and ruled out an acute coronary event and clearing patient from cardiac perspective recommending outpatient follow-up with PCP. Hematology/oncology consulted secondary to concerns of metastatic lesion/hemangioma of right upper lobe of liver with history of renal cancer and ordered MRI confirming liver hemangioma. On the evening of 05/26/23 patient spiking elevated temp of 102.9F and found to be tachycardic. Patient was found to have elevated WBC count of 15.7 and a lactate of 2.1. Secondary to these findings concerning for sepsis blood cultures were drawn and patient was started on IV antibiotics with Zosyn 3.375 g every 8 hours. Patient underwent a gallbladder ultrasound in radiology report stated gallbladder sludge with trace pericholecystic fluid and hepatic steatosis. General surgery consulted and took patient for laparoscopic cholecystectomy on 05/29/23. Physical exam: Patient seen and fully evaluated at bedside. Patient ambulatory in room reports pain is better controlled at this time. He is tolerating oral intake with carb consistent diet with no episodes of nausea or vomiting. Patient reports he has been passing flatus without any difficulties. Denies bowel movement as of yet. Patient has remained afebrile since yesterday afternoon when temp was 102.4F. Patient has remained afebrile since completion of surgical procedure. Vital signs reviewed and stable. Morning vitals unremarkable with blood pressure 134/76, heart rate 81, respiratory rate 18, SpO2 96% on room air and temperature 98.3F. General: Nontoxic, no distress and appears stated age. Obese. Derm: Skin warm and dry, normal coloration for ethnicity. Head: Atraumatic, normocephalic and symmetric. Eyes: EOMs intact, no lid lag, and anicteric sclera Mouth: no lip lesions, mucus membranes moist Cardiovascular: regular rate and rhythm with normal S1S2, no murmur, positive posterior tibial pulses bilaterally, and cap refill < 2 seconds. Lungs: Respirations even, regular, and unlabored on room air. Lungs CTA bilaterally, no rhonchi, no rales, no wheezing, and no accessory muscle usage. Abdominal: soft, right upper quadrant pain upon palpation, no guarding, no appreciable organomegaly Ext: ROM intact. No gross muscle atrophy, no edema, no contractures Neuro: Speech clear, face symmetrical and CN II-XII grossly intact with no noted focal neuro deficits Psych: Alert and oriented to person, place, time, and situation. Appropriate and pleasant affect. Assessment and Plan of Care: Acute cholecystitis Sepsis secondary to acute cholecystitis Right upper quadrant pain secondary to above Liver hemangioma -Continue IV antibiotics with Zosyn 3.375 g every 8 hours. -Continue Tylenol 650 mg by mouth every 6 hours as needed for mild pain/fever. -General surgery following and took patient for laparoscopic cholecystectomy 05/29/23 -Continue a heart healthy and carb consistent diet. -Eliquis held secondary to laparoscopic cholecystectomy completed 05/29/23, discussed with general surgeon and okay to resume Eliquis on 05/31/23 -Continue symptomatic care and pain management. Hypertension, poorly controlled -Continue daily medication regimen with hydralazine 10 mg every 8 hours, metoprolol 50 mg daily, Type II [id number] diabetes mellitus with hyperglycemia -Hold Juardiance and patient placed on glycemic protocol with NovoLog sliding scale to obtain tight glycemic control throughout hospitalization. -Hemoglobin A1c elevated at 9.6%, patient to resume home insulin coverage upon discharge. Chest pain, acute coronary event ruled out -Cardiology evaluated patient for reports of chest pain and ruled out an acute coronary event and clearing patient from cardiac perspective recommending outpatient follow-up with PCP. -Continue cardiac medication regimen Aspirin 81 mg daily, atorvastatin 10 mg daily, hydralazine 10 mg 3 times daily and metoprolol 50 mg daily. -Eliquis held secondary to laparoscopic cholecystectomy completed 05/29/23, discussed with general surgeon and okay to resume Eliquis on 05/31/23 Data review: -Morning vitals reviewed, Blood pressure 134/76, heart rate 81, respiratory rate 18, SpO2 96% on room air and temperature 98.3F. -Morning labs reviewed. CBC revealing resolution of previous noted leukocytosis with WBC count decreasing to 9.67 from initial 16.39. BMP revealing mild hyponatremia with sodium of 133, hypocarbia with bicarb of 19.1, slightly jama vated anion gap of 12.9. Imaging reviewed: -No new imaging for review CODE STATUS: Full code DVT prophylaxis: Eliquis held secondary to laparoscopic cholecystectomy completed 05/29/23, discussed with general surgeon and okay to resume Eliquis on 05/31/23 Discussed with: Patient, RN, and general surgeon Anticipated discharge date: pending clinical course Anticipated discharge place: Home Patient was seen independently by Nurse Practitioner. This document was prepared using [employer] dictation software. Please allow for errors in field service technician poultry while rare they do occur. I reviewed the documentation as provided by the TRISTIN above, who is the original author of this note. I agree with the documented assessment and plan, with the following changes: none Objective - Vital Signs Vital signs: Vital Signs Temp 98.3 F 05/30/23 07:00 Pulse 81 05/30/23 07:00 Resp 18 05/30/23 07:00 BP 134/76 05/30/23 07:00 Pulse Ox 96 05/30/23 08:29 FiO2 21 05/30/23 08:29 Intake & Output 05/29/23 05/30/23 05/30/23 18:59 06:59 18:59 Intake Total 1400 Output Total 205 40 Balance 1195 -40 Intake: IV 1400 Output: Drainage 40 40 Abdomen 40 40 Estimated Blood Loss 165 Other: Voiding Method Toilet Toilet # Voids 0 4 - Labs CBC & Chem 7: 05/31/23 05:38 05/31/23 05:38 Labs: Abnormal Lab Results - Last 24 Hours (Table) 05/29/23 05/29/23 05/29/23 Range/Units 05:41 11:36 12:11 WBC 11.62 H (4.50-10.00) X 10*3/uL RBC 4.17 L (4.40-5.60) X 10*6/uL Hct 36.9 L (39.6-50.0) % Plt Count 107 L (140-440) X 10*3/uL POC Glucose (mg/dL) 122 H 147 H (70-110) mg/dL 05/29/23 05/29/23 05/30/23 Range/Units 17:21 21:34 06:07 WBC (4.50-10.00) X 10*3/uL RBC (4.40-5.60) X 10*6/uL Hct (39.6-50.0) % Plt Count (140-440) X 10*3/uL POC Glucose (mg/dL) 179 H 161 H 222 H (70-110) mg/dL Microbiology - Last 24 Hours (Table) 05/26/23 21:52 Blood Culture - Preliminary Blood 05/26/23 05:20 Blood Culture - Preliminary Blood
[2023-05-30 20:58] LABS: Glucose,Whole Blood 261 mg/dL (70-110)
[2023-05-31] MEDS: HYDROcodone/APAP 5-325MG 1 EACH TAB PO PRN ×3 (01:03→18:30)
[2023-05-31] MEDS: PIPERACILLIN-TAZOBACTAM 3.375 GM in SODIUM CHLORIDE 0.9% 100 ML IVPB SCH ×3 (01:03→17:21)
[2023-05-31] MEDS: HYDROmorphone 0.5 MG/0.5 ML SYRINGE IVP PRN ×3 (02:14→21:40)
[2023-05-31 06:22] LABS: Glucose,Whole Blood 176 mg/dL (70-110)
[2023-05-31] MEDS: INSULIN ASPART (NovoLOG) 100 UNIT/ML VIAL SQ SCH ×4 (06:29→21:40)
[2023-05-31] MEDS: METOPROLOL SUCCINATE (ER) 50 MG TAB.ER.24H PO SCH (08:41)
[2023-05-31] MEDS: APIXABAN 5 MG TAB PO SCH ×2 (08:41→21:39)
[2023-05-31] MEDS: ATORVASTATIN 10 MG TAB PO SCH (08:41)
[2023-05-31] MEDS: PARoxetine 10 MG TAB PO SCH (08:41)
[2023-05-31] MEDS: hydrALAZINE HCL 10 MG TAB PO SCH ×3 (08:41→21:39)
[2023-05-31 09:26] LABS: HCT 37.8 % (39.6-50.0); HGB 12.2 d/dL (12.0-15.0); MCH 29.5 pg (27.0-32.0); MCHC 32.3 d/dL (32.0-37.0); MCV 91.3 FL (80.0-97.0); NRBC Per 100 WBC 0 X 10*3/uL (0.00-0.01); Platelet Count 204 X 10*3/uL (140-440); RBC 4.14 X 10*6/uL (4.40-5.60); RDW 13.1 % (11.5-14.5); WBC 7.87 X 10*3/uL (4.50-10.00)
[2023-05-31 09:38] LABS: ALT 83 U/L (10-49); AST 79 U/L (14-35); Albumin 2.9 d/dL (3.8-4.9); Albumin/Globulin Ratio 1.07 Ratio (1.60-3.17); Alkaline Phosphatase 63 U/L (41-126); BUN/Creat Ratio 17.08 Ratio (12.00-20.00); Blood Urea Nitrogen 20.5 mg/dL (9.0-27.0); Calcium 8.5 mg/dL (8.7-10.3); Carbon Dioxide 19.2 mmol/L (21.6-31.8); Chloride 103 mmol/L (96-109); Globulin 2.7 d/dL (1.6-3.3); Glucose 186 mg/dL (70-110); Potassium 4.5 mmol/L (3.5-5.5); Sodium 136 mmol/L (135-145); Total Bilirubin 0.5 mg/dL (0.3-1.2); Total Protein 5.6 d/dL (6.2-8.2)
[2023-05-31 12:31] LABS: Glucose,Whole Blood 223 mg/dL (70-110)
--- NOTE | 2023-05-31 14:44 | P.PN ---
Subjective Progress Note Date: 05/31/23 CHIEF COMPLAINT: Gangrenous cholecystitis HISTORY OF PRESENT ILLNESS: Patient postop day #2 status post laparoscopic cholecystectomy for acute gangrenous cholecystitis. Patient sitting in bedside chair. He reports his pain is controlled. He is tolerating a regular diet. He did have a bowel movement and flatus. Has been up and ambulating. Afebrile. WBC 7.87HB 12.2 total bilirubin 0.5 AST 80-79 ALT 74-83. Alk phos 63. KRISHAN drain 90ml output recorded in the last 24 hours. PHYSICAL EXAM: VITAL SIGNS: Reviewed. GENERAL: Well-developed in no acute distress. HEENT: No sclera icterus. Extraocular movements grossly intact. Moist buccal mucosa. Head is atraumatic, normocephalic. ABDOMEN: Soft. Nondistended. Incision sites clean dry and intact. KRISHAN drain in place with serosanguineous output ASSESSMENT: 1. Acute gangrenous cholecystitis status post laparoscopic cholecystectomy PLAN: -Continue regular diet -Continue antibiotics -Continue pain management -Encouraged patient to ambulate -Encouraged patient to use incentive spirometer -Ok to resume Eliquis -Anticipate possible discharge tomorrow Physician Golf Ball Cover Treater note has been reviewed by physician. Signing provider agrees with the documented findings, assessment, and plan of care. Objective - Vital Signs Vital signs: Vital Signs Temp 98.7 F 05/31/23 08:00 Pulse 69 05/31/23 08:00 Resp 16 05/31/23 08:00 BP 145/86 05/31/23 08:00 Pulse Ox 98 05/31/23 08:00 FiO2 21 05/30/23 08:29 Intake & Output 05/30/23 05/31/23 05/31/23 18:59 06:59 18:59 Intake Total 418 Output Total 50 Balance 368 Intake: Oral 418 Output: Drainage 50 Abdomen 50 Other: Voiding Method Toilet # Voids 2 3 # Bowel Movements 0 0 - Labs CBC & Chem 7: 05/31/23 05:38 05/31/23 05:38 Labs: Abnormal Lab Results - Last 24 Hours (Table) 05/30/23 05/30/23 05/31/23 Range/Units 17:27 20:56 05:38 RBC 4.14 L (4.40-5.60) X 10*6/uL Hct 37.8 L (39.6-50.0) % Carbon Dioxide (21.6-31.8) mmol/L Anion Gap (4.00-12.00) mmol/L Glucose (70-110) mg/dL POC Glucose (mg/dL) 222 H 261 H (70-110) mg/dL Calcium (8.7-10.3) mg/dL AST (14-35) U/L ALT (10-49) U/L Total Protein (6.2-8.2) d/dL Albumin (3.8-4.9) d/dL Albumin/Globulin Ratio (1.60-3.17) Ratio 05/31/23 05/31/23 05/31/23 Range/Units 05:38 06:21 12:29 RBC (4.40-5.60) X 10*6/uL Hct (39.6-50.0) % Carbon Dioxide 19.2 L (21.6-31.8) mmol/L Anion Gap 13.80 H (4.00-12.00) mmol/L Glucose 186 H (70-110) mg/dL POC Glucose (mg/dL) 176 H 223 H (70-110) mg/dL Calcium 8.5 L (8.7-10.3) mg/dL AST 79 H (14-35) U/L ALT 83 H (10-49) U/L Total Protein 5.6 L (6.2-8.2) d/dL Albumin 2.9 L (3.8-4.9) d/dL Albumin/Globulin Ratio 1.07 L (1.60-3.17) Ratio Microbiology - Last 24 Hours (Table) 05/26/23 05:20 Blood Culture - Final Blood
--- NOTE | 2023-05-31 14:56 | P.PN ---
Subjective Progress Note Date: 05/29/23 Principal diagnosis: Fever possible cholecystitis Patient is a 47-year-old male with a past medical history negative for diabetes mellitus heart failure atrial fibrillation present to the hospital with chest pain and a half in the right upper quadrant area patient did have a fever and elevated white count and concern for possible cholecystitis. Patient is status post left laparoscopic cholecystectomy completed on 05/29/2023 with evidence of acute gangrenous cholecystitis On today's evaluation that is 05/29/2023, patient did have fever to 102.4F this afternoon, the patient is breathing comfortably on room air, the patient denieso chest pain occasional nausea did have some right upper quadrant discomfort no diarrhea Objective - Vital Signs Vital signs: Vital Signs Temp 99 F 05/29/23 14:25 Pulse 90 05/29/23 14:25 Resp 17 05/29/23 14:25 BP 118/75 05/29/23 14:25 Pulse Ox 94 L 05/29/23 14:25 FiO2 21 05/29/23 08:56 Intake & Output 05/28/23 05/29/23 05/29/23 18:59 06:59 18:59 Intake Total 1400 Output Total 1700 750 165 Balance -1700 -750 1235 Intake: IV 1400 Output: Urine 1700 750 Estimated Blood Loss 165 Other: Voiding Method Toilet # Voids 1 0 - Exam GENERAL DESCRIPTION: Middle-age male lying in bed in no distress RESPIRATORY SYSTEM: Unlabored breathing , decreased breath sounds at bases HEART: S1 S2 regular rate and rhythm , ABDOMEN: Soft , no tenderness EXTREMITIES: No edema feet - Labs CBC & Chem 7: 05/31/23 05:38 05/31/23 05:38 Labs: Abnormal Lab Results - Last 24 Hours (Table) 05/28/23 05/28/23 05/29/23 Range/Units 17:50 20:08 05:41 WBC 11.62 H (4.50-10.00) X 10*3/uL RBC 4.17 L (4.40-5.60) X 10*6/uL Hct 36.9 L (39.6-50.0) % Plt Count 107 L (140-440) X 10*3/uL Sodium (135-145) mmol/L Carbon Dioxide (21.6-31.8) mmol/L Anion Gap (4.00-12.00) mmol/L Glucose (70-110) mg/dL POC Glucose (mg/dL) 154 H 274 H (70-110) mg/dL Calcium (8.7-10.3) mg/dL AST (14-35) U/L Total Protein (6.2-8.2) d/dL Albumin (3.8-4.9) d/dL Albumin/Globulin Ratio (1.60-3.17) Ratio 05/29/23 05/29/23 05/29/23 Range/Units 05:41 06:08 11:36 WBC (4.50-10.00) X 10*3/uL RBC (4.40-5.60) X 10*6/uL Hct (39.6-50.0) % Plt Count (140-440) X 10*3/uL Sodium 134 L (135-145) mmol/L Carbon Dioxide 16.5 L (21.6-31.8) mmol/L Anion Gap 15.50 H (4.00-12.00) mmol/L Glucose 148 H (70-110) mg/dL POC Glucose (mg/dL) 134 H 122 H (70-110) mg/dL Calcium 7.7 L (8.7-10.3) mg/dL AST 56 H (14-35) U/L Total Protein 5.4 L (6.2-8.2) d/dL Albumin 2.9 L (3.8-4.9) d/dL Albumin/Globulin Ratio 1.16 L (1.60-3.17) Ratio 05/29/23 Range/Units 12:11 WBC (4.50-10.00) X 10*3/uL RBC (4.40-5.60) X 10*6/uL Hct (39.6-50.0) % Plt Count (140-440) X 10*3/uL Sodium (135-145) mmol/L Carbon Dioxide (21.6-31.8) mmol/L Anion Gap (4.00-12.00) mmol/L Glucose (70-110) mg/dL POC Glucose (mg/dL) 147 H (70-110) mg/dL Calcium (8.7-10.3) mg/dL AST (14-35) U/L Total Protein (6.2-8.2) d/dL Albumin (3.8-4.9) d/dL Albumin/Globulin Ratio (1.60-3.17) Ratio Microbiology - Last 24 Hours (Table) 05/26/23 05:20 Blood Culture - Preliminary Blood 05/26/23 21:52 Blood Culture - Preliminary Blood Assessment and Plan (1) Fever Current Visit: Yes Status: Acute Code(s): R50.9 - FEVER, UNSPECIFIED SNOMED Code(s): 668754856 (2) Acute cholecystitis Current Visit: Yes Status: Acute Code(s): K81.0 - ACUTE CHOLECYSTITIS SNOMED Code(s): 72081434 Plan: 1patient with sepsis in this patient with fever tachycardia elevated white count he did have epigastric and right upper quadrant pain with abnormal CT and MRI high clinical suspicious for acute cholecystitis and we will need to call for the enteric gram-negative to be the likely pathogen 2- ultrasound of the gallbladder area suspicious for cholecystitis and patient is status post laparoscopic cholecystectomy for acute gangrenous cholecystitis 3-patient to continue with the Zosyn and will monitor clinical course closely Time with Patient: Less than 30
--- NOTE | 2023-05-31 14:57 | P.PN ---
Subjective Progress Note Date: 05/30/23 Principal diagnosis: Fever possible cholecystitis Patient is a 47-year-old male with a past medical history negative for diabetes mellitus heart failure atrial fibrillation present to the hospital with chest pain and a half in the right upper quadrant area patient did have a fever and elevated white count and concern for possible cholecystitis. Patient is status post left laparoscopic cholecystectomy completed on 05/29/2023 with evidence of acute gangrenous cholecystitis On today's evaluation that is 05/30/2023, patient did have resolution of his fever and did have a temperature of 98.3 this morning, the patient is breathing comfortably on room air, the patient denies chest pain occasional nausea but no vomiting and no diarrhea Objective - Vital Signs Vital signs: Vital Signs Temp 98.3 F 05/30/23 07:00 Pulse 81 05/30/23 07:00 Resp 18 05/30/23 07:00 BP 134/76 05/30/23 07:00 Pulse Ox 96 05/30/23 08:29 FiO2 21 05/30/23 08:29 Intake & Output 05/29/23 05/30/23 05/30/23 18:59 06:59 18:59 Intake Total 1400 418 Output Total 205 40 30 Balance 1195 -40 388 Intake: IV 1400 Oral 418 Output: Drainage 40 40 30 Abdomen 40 40 30 Estimated Blood Loss 165 Other: Voiding Method Toilet Toilet # Voids 0 4 - Exam GENERAL DESCRIPTION: Middle-age male lying in bed in no distress RESPIRATORY SYSTEM: Unlabored breathing , decreased breath sounds at bases HEART: S1 S2 regular rate and rhythm , ABDOMEN: Soft , no tenderness EXTREMITIES: No edema feet - Labs CBC & Chem 7: 05/31/23 05:38 05/31/23 05:38 Labs: Abnormal Lab Results - Last 24 Hours (Table) 05/29/23 05/29/23 05/30/23 Range/Units 17:21 21:34 06:07 RBC (4.40-5.60) X 10*6/uL Hct (39.6-50.0) % Neutrophils # (1.80-7.70) X 10*3/uL Eosinophils # (0.04-0.35) X 10*3/uL Sodium (135-145) mmol/L Carbon Dioxide (21.6-31.8) mmol/L Anion Gap (4.00-12.00) mmol/L Glucose (70-110) mg/dL POC Glucose (mg/dL) 179 H 161 H 222 H (70-110) mg/dL Calcium (8.7-10.3) mg/dL AST (14-35) U/L ALT (10-49) U/L Total Protein (6.2-8.2) d/dL Albumin (3.8-4.9) d/dL Albumin/Globulin Ratio (1.60-3.17) Ratio 05/30/23 05/30/23 05/30/23 Range/Units 06:26 06:26 12:12 RBC 4.28 L (4.40-5.60) X 10*6/uL Hct 38.7 L (39.6-50.0) % Neutrophils # 7.75 H (1.80-7.70) X 10*3/uL Eosinophils # 0.01 L (0.04-0.35) X 10*3/uL Sodium 133 L (135-145) mmol/L Carbon Dioxide 19.1 L (21.6-31.8) mmol/L Anion Gap 12.90 H (4.00-12.00) mmol/L Glucose 227 H (70-110) mg/dL POC Glucose (mg/dL) 262 H (70-110) mg/dL Calcium 8.3 L (8.7-10.3) mg/dL AST 80 H (14-35) U/L ALT 74 H (10-49) U/L Total Protein 5.9 L (6.2-8.2) d/dL Albumin 3.0 L (3.8-4.9) d/dL Albumin/Globulin Ratio 1.03 L (1.60-3.17) Ratio Microbiology - Last 24 Hours (Table) 05/26/23 21:52 Blood Culture - Preliminary Blood 05/26/23 05:20 Blood Culture - Preliminary Blood Assessment and Plan (1) Fever Current Visit: Yes Status: Acute Code(s): R50.9 - FEVER, UNSPECIFIED SNOMED Code(s): 918491619 (2) Acute cholecystitis Current Visit: Yes Status: Acute Code(s): K81.0 - ACUTE CHOLECYSTITIS SNOMED Code(s): 47590238 Plan: 1patient with sepsis in this patient with fever tachycardia elevated white count he did have epigastric and right upper quadrant pain with abnormal CT and MRI high clinical suspicious for acute cholecystitis and we will need to call for the enteric gram-negative to be the likely pathogen 2- ultrasound of the gallbladder area suspicious for cholecystitis and patient is status post laparoscopic cholecystectomy for acute gangrenous cholecystitis 3-patient did have resolution of his fever and his white count has normalized, patient to continue with the Zosyn and will monitor clinical course closely Time with Patient: Less than 30
--- NOTE | 2023-05-31 14:58 | P.PN ---
Subjective Progress Note Date: 05/31/23 Principal diagnosis: Fever possible cholecystitis Patient is a 47-year-old male with a past medical history negative for diabetes mellitus heart failure atrial fibrillation present to the hospital with chest pain and a half in the right upper quadrant area patient did have a fever and elevated white count and concern for possible cholecystitis. Patient is status post left laparoscopic cholecystectomy completed on 05/29/2023 with evidence of acute gangrenous cholecystitis On today's evaluation that is 05/31/2023, patient remains to be afebrile, the patient is breathing comfortably on room air, the patient denies chest pain, the patient did have occasional nausea but no vomiting and no diarrhea Objective - Vital Signs Vital signs: Vital Signs Temp 98.7 F 05/31/23 08:00 Pulse 69 05/31/23 08:00 Resp 16 05/31/23 08:00 BP 145/86 05/31/23 08:00 Pulse Ox 98 05/31/23 08:00 FiO2 21 05/30/23 08:29 Intake & Output 05/30/23 05/31/23 05/31/23 18:59 06:59 18:59 Intake Total 418 Output Total 50 Balance 368 Intake: Oral 418 Output: Drainage 50 Abdomen 50 Other: Voiding Method Toilet # Voids 2 3 # Bowel Movements 0 0 - Exam GENERAL DESCRIPTION: Middle-age male lying in bed in no distress RESPIRATORY SYSTEM: Unlabored breathing , decreased breath sounds at bases HEART: S1 S2 regular rate and rhythm , ABDOMEN: Soft , no tenderness EXTREMITIES: No edema feet - Labs CBC & Chem 7: 05/31/23 05:38 05/31/23 05:38 Labs: Abnormal Lab Results - Last 24 Hours (Table) 05/30/23 05/30/23 05/31/23 Range/Units 17:27 20:56 05:38 RBC 4.14 L (4.40-5.60) X 10*6/uL Hct 37.8 L (39.6-50.0) % Carbon Dioxide (21.6-31.8) mmol/L Anion Gap (4.00-12.00) mmol/L Glucose (70-110) mg/dL POC Glucose (mg/dL) 222 H 261 H (70-110) mg/dL Calcium (8.7-10.3) mg/dL AST (14-35) U/L ALT (10-49) U/L Total Protein (6.2-8.2) d/dL Albumin (3.8-4.9) d/dL Albumin/Globulin Ratio (1.60-3.17) Ratio 05/31/23 05/31/23 05/31/23 Range/Units 05:38 06:21 12:29 RBC (4.40-5.60) X 10*6/uL Hct (39.6-50.0) % Carbon Dioxide 19.2 L (21.6-31.8) mmol/L Anion Gap 13.80 H (4.00-12.00) mmol/L Glucose 186 H (70-110) mg/dL POC Glucose (mg/dL) 176 H 223 H (70-110) mg/dL Calcium 8.5 L (8.7-10.3) mg/dL AST 79 H (14-35) U/L ALT 83 H (10-49) U/L Total Protein 5.6 L (6.2-8.2) d/dL Albumin 2.9 L (3.8-4.9) d/dL Albumin/Globulin Ratio 1.07 L (1.60-3.17) Ratio Microbiology - Last 24 Hours (Table) 05/26/23 05:20 Blood Culture - Final Blood Assessment and Plan (1) Fever Current Visit: Yes Status: Acute Code(s): R50.9 - FEVER, UNSPECIFIED SNOMED Code(s): 347467416 (2) Acute cholecystitis Current Visit: Yes Status: Acute Code(s): K81.0 - ACUTE CHOLECYSTITIS SNOMED Code(s): 58564478 Plan: 1patient with sepsis in this patient with fever tachycardia elevated white count he did have epigastric and right upper quadrant pain with abnormal CT and MRI high clinical suspicious for acute cholecystitis and we will need to call for the enteric gram-negative to be the likely pathogen 2- ultrasound of the gallbladder area suspicious for cholecystitis and patient is status post laparoscopic cholecystectomy for acute gangrenous cholecystitis 3-patient did have resolution of his fever and his white count has normalized, 4- patient to continue with the Zosyn and will transition a short course of oral Augmentin on discharge Time with Patient: Less than 30
--- NOTE | 2023-05-31 15:35 | P.PN ---
Subjective Progress Note Date: 05/31/23 Hospital course: Patient is a very pleasant 47-year-old male with a past medical history of renal cancer, type 2 [id number] diabetes mellitus, hypertension, hyperlipidemia, atrial fibrillation status post cardiac ablation on antic oagulation with Eliquis, and anxiety. He presented to the emergency department with a chief complaint of chest pain. Patient reports sudden onset of severe pain to midsternal chest radiating into his back. Patient reports this pain came on at rest and has been a constant sharp pressure sensation associated with nausea. Patient denies experiencing any headache, lightheadedness, dizziness, palpitations, shortness of breath, cough or congestion, abdominal pain, vomiting, or experiencing any numbness/tingling/weakness/swelling in his extremities. Patient underwent full evaluation in the emergency department and upon arrival vital signs obtained showing blood pressure 164/106, heart rate 86, respiratory rate 18, temp 98.0F, and SpO2 of 100% on room air. EKG completed showing normal sinus rhythm at 78 bpm with no significant T-wave or ST abnormalities upon personal review and interpretation. X-ray completed lungs appear clear and radiology report stating negative for acute cardiopulmonary process. CTA thoracic/abdominal/pelvic aorta completed and radiology report reviewed stating no evidence for thoracic aortic dissection or aneurysm, circumferential wall thickening of the rectum without surrounding inflammatory changes, mild splenomegaly, and hepatic steatosis with a peripheral enhancing lesion within the right hepatic lobe likely hemangioma recommend further evaluation with CT or MR abdomen. Labs completed and reviewed. CBC and coagulation profile unremarkable. BMP revealing mild acidosis with chloride 108, bicarb 13, and anion gap of 15. Hyperglycemia with glucose of 306. Liver profile revealing elevated ALT is 67. Troponin negative at less than 0.012. D-dimer negative at 0.31. Acetone negative. Discussed with ED physician and bioprocessing manufacturing technician in detail. Patient was admitted under our services to observation unit with telemetry. Consult placed to both cardiology and hematology/oncology. Troponins were trended overnight all negative at less than 0.012. Lipid profile normal findings. Hemoglobin A1c elevated at 9.6%. Echocardiogram Completed revealing slightly impaired EF of 40-45% . Cardiology evaluated patient for reports of chest pain and ruled out an acute coronary event and clearing patient from cardiac perspective recommending outpatient follow-up with PCP. Hematology/oncology consulted secondary to concerns of metastatic lesion/hemangioma of right upper lobe of liver with history of renal cancer and ordered MRI confirming liver hemangioma. On the evening of 05/26/23 patient spiking elevated temp of 102.9F and found to be tachycardic. Patient was found to have elevated WBC count of 15.7 and a lactate of 2.1. Secondary to these findings concerning for sepsis blood cultures were drawn and patient was started on IV antibiotics with Zosyn 3.375 g every 8 hours. Patient underwent a gallbladder ultrasound in radiology report stated gallbladder sludge with trace pericholecystic fluid and hepatic steatosis. General surgery consulted and took patient for laparoscopic cholecystectomy on 05/29/23. Physical exam: Patient seen and fully evaluated at bedside. Patient ambulatory in room reports pain is better controlled at this time. He is tolerating oral intake with carb consistent diet with no episodes of nausea or vomiting. Patient reports he has been passing flatus without any difficulties. Denies bowel movement as of yet. Patient has remained afebrile since yesterday afternoon when temp was 102.4F. Patient has remained afebrile since completion of surgical procedure. Vital signs reviewed and stable. Morning vitals unremarkable with blood pressure 134/76, heart rate 81, respiratory rate 18, SpO2 96% on room air and temperature 98.3F. General: Nontoxic, no distress and appears stated age. Obese. Derm: Skin warm and dry, normal coloration for ethnicity. Head: Atraumatic, normocephalic and symmetric. Eyes: EOMs intact, no lid lag, and anicteric sclera Mouth: no lip lesions, mucus membranes moist Cardiovascular: regular rate and rhythm with normal S1S2, no murmur, positive posterior tibial pulses bilaterally, and cap refill < 2 seconds. Lungs: Respirations even, regular, and unlabored on room air. Lungs CTA bilaterally, no rhonchi, no rales, no wheezing, and no accessory muscle usage. Abdominal: soft, right upper quadrant pain upon palpation, no guarding, no appreciable organomegaly Ext: ROM intact. No gross muscle atrophy, no edema, no contractures Neuro: Speech clear, face symmetrical and CN II-XII grossly intact with no noted focal neuro deficits Psych: Alert and oriented to person, place, time, and situation. Appropriate and pleasant affect. Assessment and Plan of Care: Acute cholecystitis status post laparoscopic cholecystectomy on 05/29/23 Sepsis secondary to acute cholecystitis Right upper quadrant pain secondary to above Liver hemangioma -Continue IV antibiotics with Zosyn 3.375 g every 8 hours for an additional 24 hours with plans to discharge home on oral Augmentin tomorrow morning. -Continue Tylenol 650 mg by mouth every 6 hours as needed for mild pain/fever. -General surgery following and took patient for laparoscopic cholecystectomy 05/29/23, discussed plan of care with general surgeon and he is requesting patient stay in hospital to receive an additional 24 hours of IV antibiotics prior to discharge. -Continue a heart healthy and carb consistent diet. -Eliquis resumed 05/31/23 after approval by general surgeon -Continue symptomatic care and pain management. Hypertension -Continue daily medication regimen with hydralazine 10 mg every 8 hours and metoprolol 50 mg daily, Type II insulin-dependent diabetes mellitus with hyperglycemia -Continue to Hold Juardiance and patient placed on glycemic protocol with NovoLog sliding scale to obtain tight glycemic control throughout hospitalization. -Hemoglobin A1c elevated at 9.6%, patient to resume home insulin coverage upon discharge. Chest pain, acute coronary event ruled out -Cardiology evaluated patient for reports of chest pain and ruled out an acute c oronary event and clearing patient from cardiac perspective recommending outpatient follow-up with PCP. -Continue cardiac medication regimen Aspirin 81 mg daily, atorvastatin 10 mg daily, hydralazine 10 mg 3 times daily and metoprolol 50 mg daily. -Eliquis held secondary to laparoscopic cholecystectomy completed 05/29/23, discussed with general surgeon and okay to resume Eliquis on 05/31/23 Data review: -Morning vitals reviewed, Blood pressure 145/86, heart rate 69, respiratory rate 16, temp 98.7F, and SpO2 98% on room air. -Morning labs reviewed. CBC unremarkable showing continued resolution of previous noted leukocytosis with WBC count of 7.87 and stable postoperative hemoglobin of 12.2. -Final blood culture negative showing no growth 5 days. Imaging reviewed: -No new imaging for review CODE STATUS: Full code DVT prophylaxis: Eliquis Discussed with: Patient, RN, and general surgeon Anticipated discharge date: Tomorrow morning Anticipated discharge place: Home Patient was seen independently by Nurse Practitioner. This document was prepared using [employer] dictation software. Please allow for errors in ambulance paramedic while rare they do occur. I reviewed the documentation as provided by the TRISTIN above, who is the original author of this note. I agree with the documented assessment and plan, with the following changes: none Objective - Vital Signs Vital signs: Vital Signs Temp 98.7 F 05/31/23 08:00 Pulse 69 05/31/23 08:00 Resp 16 05/31/23 08:00 BP 145/86 05/31/23 08:00 Pulse Ox 98 05/31/23 08:00 FiO2 21 05/30/23 08:29 Intake & Output 05/30/23 05/31/23 05/31/23 18:59 06:59 18:59 Intake Total 418 Output Total 50 Balance 368 Intake: Oral 418 Output: Drainage 50 Abdomen 50 Other: Voiding Method Toilet # Voids 2 3 # Bowel Movements 0 0 - Labs CBC & Chem 7: 05/31/23 05:38 05/31/23 05:38 Labs: Abnormal Lab Results - Last 24 Hours (Table) 05/30/23 05/30/23 05/30/23 Range/Units 06:26 06:26 12:12 RBC 4.28 L (4.40-5.60) X 10*6/uL Hct 38.7 L (39.6-50.0) % Neutrophils # 7.75 H (1.80-7.70) X 10*3/uL Eosinophils # 0.01 L (0.04-0.35) X 10*3/uL Sodium 133 L (135-145) mmol/L Carbon Dioxide 19.1 L (21.6-31.8) mmol/L Anion Gap 12.90 H (4.00-12.00) mmol/L Glucose 227 H (70-110) mg/dL POC Glucose (mg/dL) 262 H (70-110) mg/dL Calcium 8.3 L (8.7-10.3) mg/dL AST 80 H (14-35) U/L ALT 74 H (10-49) U/L Total Protein 5.9 L (6.2-8.2) d/dL Albumin 3.0 L (3.8-4.9) d/dL Albumin/Globulin Ratio 1.03 L (1.60-3.17) Ratio 05/30/23 05/30/23 05/31/23 Range/Units 17:27 20:56 06:21 RBC (4.40-5.60) X 10*6/uL Hct (39.6-50.0) % Neutrophils # (1.80-7.70) X 10*3/uL Eosinophils # (0.04-0.35) X 10*3/uL Sodium (135-145) mmol/L Carbon Dioxide (21.6-31.8) mmol/L Anion Gap (4.00-12.00) mmol/L Glucose (70-110) mg/dL POC Glucose (mg/dL) 222 H 261 H 176 H (70-110) mg/dL Calcium (8.7-10.3) mg/dL AST (14-35) U/L ALT (10-49) U/L Total Protein (6.2-8.2) d/dL Albumin (3.8-4.9) d/dL Albumin/Globulin Ratio (1.60-3.17) Ratio
[2023-05-31 17:44] LABS: Glucose,Whole Blood 227 mg/dL (70-110)
[2023-05-31 20:37] LABS: Glucose,Whole Blood 244 mg/dL (70-110)
[2023-06-01] MEDS: HYDROmorphone 0.5 MG/0.5 ML SYRINGE IVP PRN ×2 (01:36→20:00)
[2023-06-01] MEDS: PIPERACILLIN-TAZOBACTAM 3.375 GM in SODIUM CHLORIDE 0.9% 100 ML IVPB SCH ×3 (01:36→16:16)
[2023-06-01 06:05] LABS: Glucose,Whole Blood 189 mg/dL (70-110)
[2023-06-01] MEDS: HYDROcodone/APAP 5-325MG 1 EACH TAB PO PRN ×2 (06:23→16:19)
[2023-06-01] MEDS: INSULIN ASPART (NovoLOG) 100 UNIT/ML VIAL SQ SCH ×4 (06:24→20:48)
[2023-06-01] MEDS: hydrALAZINE HCL 10 MG TAB PO SCH ×3 (08:28→20:01)
[2023-06-01] MEDS: APIXABAN 5 MG TAB PO SCH ×2 (08:28→20:01)
[2023-06-01] MEDS: METOPROLOL SUCCINATE (ER) 50 MG TAB.ER.24H PO SCH (08:28)
[2023-06-01] MEDS: ATORVASTATIN 10 MG TAB PO SCH (08:28)
[2023-06-01] MEDS: PARoxetine 10 MG TAB PO SCH (08:29)
[2023-06-01 09:38] LABS: ALT 85 U/L (10-49); AST 60 U/L (14-35); Albumin 3.1 d/dL (3.8-4.9); Alkaline Phosphatase 71 U/L (41-126); Calcium 8.9 mg/dL (8.7-10.3); Carbon Dioxide 19.3 mmol/L (21.6-31.8); Chloride 102 mmol/L (96-109); Globulin 3.1 d/dL (1.6-3.3); Glucose 188 mg/dL (70-110); Potassium 4.7 mmol/L (3.5-5.5); Sodium 135 mmol/L (135-145); Total Bilirubin 0.5 mg/dL (0.3-1.2); Total Protein 6.2 d/dL (6.2-8.2)
--- NOTE | 2023-06-01 11:31 | P.PN ---
Subjective Progress Note Date: 06/01/23 (delayed charting seen at 0830) Patient is a 47-year-old male with a history of renal cell cancer, type 2 diabetes [id number] poorly controlled, hypertension, dyslipidemia, and A. fib status post cardiac ablation on anticoagulation with Eliquis who presented to the emergency department with chest pain. In the ER he underwent an extensive evaluation. CTA of the thoracic, abdominal, and pelvic aorta revealed no evidence of dissection or aneurysm but some wall thickening of the rectum without surrounding inflammatory changes, splenomegaly, and hepatic steatosis with likely liver hemangioma. He was initially admitted for chest pain etiology. He was seen by cardiology and placed on the telemetry unit. Hematology oncology was consulted. Troponins remained negative, lipid profile is within normal limits. Hemoglobin A1c elevated at 9.6. Echocardiogram demonstrating ejection fraction of 40-45%, cardiology recommending outpatient follow-up. Patient was seen by oncology and MRI of the liver was ordered confirming hemangioma. He spiked a fever on the morning of 05/26 and ultimately underwent a gallbladder ultrasound which showed trace pericholecystic fluid and hepatic steatosis. He was started on Zosyn and IV fluids. He had a mildly elevated lactate of 2.1. He was seen by general surgery and ultimately underwent a laparoscopic cholecystectomy about 05/29/23 which demonstrated a gangrenous gallbladder. Patient seen and examined at bedside. He is feeling better. He is tolerating his diet. He is passing gas and has had a bowel movement. He denies any nausea or vomiting. Had a very long discussion about his diabetes and appropriate treatment as reflected below and assessment and plan. Vital signs reviewed General: nontoxic, no distress, appears at stated age Cardiovascular: S1S2 reg, no murmur, positive posterior tibial pulse bilateral, Lungs: no conversation dysnea, chest rise equal Abdominal: Port access areas without erythema or drainage Ext: no gross muscle atrophy, no edema b/l lower extremities, no contractures Neuro: CN II-XI grossly intact, no focal neuro deficits Psych: Alert, oriented, appropriate affect Assessment/Plan: Acute gangrenous cholecystitis with sepsis s/p lap gege on 05/29/23 -Patient did have one elevated temperature overnight at 100.7 but this was obtained axillary. He had this repeated 2 hours later without any antipyretics on oral his temperature was 99.4. Case discussed with Dr. De La Vega in detail. He is concerned due to the gangrenous gallbladder and would like 24 additional hours of IV antibiotics as the patient is at high risk for abscess formation. - Continue Zosyn 3.375 g every 8 hours IV Type 2 diabetes mellitus patient with elevated A1c of 9.6. - He states he only uses insulin as needed at home. I discussed with the patient that long-acting insulin should not be used on an as-needed basis and needs to be titrated to his a.m. fasting blood sugars but that short acting insulin can sometimes be used as needed. I discussed with him that he likely does not need as high of doses of insulin at home is what he is reporting currently and that he should start his insulin at half dose and monitor blood sugars closely. - levemir 15 units this evening - SSI - follow BS Liver hemiangioma Systolic cardiomyopathy- improving from 2019- follow-up with PCP HTN Data Review: Vitals reviewed and temperature 100.7, pulse 114, respirations 18, blood pressure 148/91, O2 sat 95% on room air CMP reviewed carbon dioxide 19.3, anion gap 13.7, blood sugar 189, AST 60, ALT 80 DVT prophylaxis: Eliquis Anticipated discharge date: in AM Anticipated discharge place: Home This dictation was prepared using [employer] voice recognition software. Though every attempt is made to correct errors during dictation some may still exist. Objective - Vital Signs Vital signs: Vital Signs Temp 97.9 F 06/01/23 08:00 Pulse 84 06/01/23 08:00 Resp 18 06/01/23 08:00 BP 133/88 06/01/23 08:00 Pulse Ox 95 06/01/23 09:54 FiO2 21 05/30/23 08:29 Intake & Output 05/31/23 06/01/23 06/01/23 18:59 06:59 18:59 Intake Total 118 Balance 118 Intake: Oral 118 Other: Voiding Method Toilet # Voids 1 3 - Labs CBC & Chem 7: 05/31/23 05:38 06/01/23 05:21 Labs: Abnormal Lab Results - Last 24 Hours (Table) 05/31/23 05/31/23 05/31/23 Range/Units 12:29 17:41 20:36 Carbon Dioxide (21.6-31.8) mmol/L Anion Gap (4.00-12.00) mmol/L Glucose (70-110) mg/dL POC Glucose (mg/dL) 223 H 227 H 244 H (70-110) mg/dL AST (14-35) U/L ALT (10-49) U/L Albumin (3.8-4.9) d/dL Albumin/Globulin Ratio (1.60-3.17) Ratio 06/01/23 06/01/23 Range/Units 05:21 06:04 Carbon Dioxide 19.3 L (21.6-31.8) mmol/L Anion Gap 13.70 H (4.00-12.00) mmol/L Glucose 188 H (70-110) mg/dL POC Glucose (mg/dL) 189 H (70-110) mg/dL AST 60 H (14-35) U/L ALT 85 H (10-49) U/L Albumin 3.1 L (3.8-4.9) d/dL Albumin/Globulin Ratio 1.00 L (1.60-3.17) Ratio Microbiology - Last 24 Hours (Table) 05/26/23 21:52 Blood Culture - Final Blood 05/26/23 05:20 Blood Culture - Final Blood
[2023-06-01 11:36] LABS: Glucose,Whole Blood 239 mg/dL (70-110)
--- NOTE | 2023-06-01 13:22 | P.PN ---
Subjective Progress Note Date: 06/01/23 CHIEF COMPLAINT: Gangrenous cholecystitis HISTORY OF PRESENT ILLNESS: Patient postop day #3 status post laparoscopic cholecystectomy for acute gangrenous cholecystitis. Patient reports pain is controlled. He is tolerating diet. Denies any nausea or vomiting. He did have a low-grade fever of 100.7 and was mildly tachycardic heart rate 114 around 2 AM this morning. He is no longer having fevers and heart rates has normalized. WBC from yesterday 7.87 total bili 0.5 AST is down from 79-60 ALT 83-85 alk phos 71. KRISHAN drain with 40 mL service and is up PHYSICAL EXAM: VITAL SIGNS: Reviewed. GENERAL: Well-developed in no acute distress. HEENT: No sclera icterus. Extraocular movements grossly intact. Moist buccal mucosa. Head is atraumatic, normocephalic. ABDOMEN: Soft. Nondistended. Incision sites clean dry and intact. KRISHAN drain in place with serosanguineous output ASSESSMENT: 1. Acute gangrenous cholecystitis status post laparoscopic cholecystectomy PLAN: -Patient needs to be afebrile for 24 hours prior to discharge -Continue regular diet -Continue antibiotics -Continue pain management -Encouraged patient to ambulate -Encouraged patient to use incentive spirometer Physician Criminal Justice Instructor note has been reviewed by physician. Signing provider agrees with the documented findings, assessment, and plan of care. Objective - Vital Signs Vital signs: Vital Signs Temp 97.9 F 06/01/23 08:00 Pulse 84 06/01/23 08:00 Resp 18 06/01/23 08:00 BP 133/88 06/01/23 08:00 Pulse Ox 95 06/01/23 09:54 FiO2 21 05/30/23 08:29 Intake & Output 05/31/23 06/01/23 06/01/23 18:59 06:59 18:59 Intake Total 118 Balance 118 Intake: Oral 118 Other: Voiding Method Toilet # Voids 1 3 - Labs CBC & Chem 7: 05/31/23 05:38 06/01/23 05:21 Labs: Abnormal Lab Results - Last 24 Hours (Table) 05/31/23 05/31/23 05/31/23 Range/Units 12:29 17:41 20:36 Carbon Dioxide (21.6-31.8) mmol/L Anion Gap (4.00-12.00) mmol/L Glucose (70-110) mg/dL POC Glucose (mg/dL) 223 H 227 H 244 H (70-110) mg/dL AST (14-35) U/L ALT (10-49) U/L Albumin (3.8-4.9) d/dL Albumin/Globulin Ratio (1.60-3.17) Ratio 06/01/23 06/01/23 Range/Units 05:21 06:04 Carbon Dioxide 19.3 L (21.6-31.8) mmol/L Anion Gap 13.70 H (4.00-12.00) mmol/L Glucose 188 H (70-110) mg/dL POC Glucose (mg/dL) 189 H (70-110) mg/dL AST 60 H (14-35) U/L ALT 85 H (10-49) U/L Albumin 3.1 L (3.8-4.9) d/dL Albumin/Globulin Ratio 1.00 L (1.60-3.17) Ratio Microbiology - Last 24 Hours (Table) 05/26/23 21:52 Blood Culture - Final Blood 05/26/23 05:20 Blood Culture - Final Blood
[2023-06-01 17:36] LABS: Glucose,Whole Blood 279 mg/dL (70-110)
[2023-06-01 20:19] LABS: Glucose,Whole Blood 280 mg/dL (70-110)
[2023-06-02] MEDS: PIPERACILLIN-TAZOBACTAM 3.375 GM in SODIUM CHLORIDE 0.9% 100 ML IVPB SCH ×2 (00:19→08:58)
[2023-06-02] MEDS: HYDROcodone/APAP 5-325MG 1 EACH TAB PO PRN (00:25)
[2023-06-02 06:12] LABS: Glucose,Whole Blood 236 mg/dL (70-110)
[2023-06-02] MEDS: INSULIN ASPART (NovoLOG) 100 UNIT/ML VIAL SQ SCH (06:37)
[2023-06-02] MEDS: HYDROmorphone 0.5 MG/0.5 ML SYRINGE IVP PRN (06:48)
[2023-06-02 07:53] VITALS: BP 124/80; PULSE 81; RESP 16; TEMP 98.2
--- NOTE | 2023-06-02 08:05 | P.PN ---
Subjective Progress Note Date: 06/01/23 Principal diagnosis: Fever possible cholecystitis Patient is a 47-year-old male with a past medical history negative for diabetes mellitus heart failure atrial fibrillation present to the hospital with chest pain and a half in the right upper quadrant area patient did have a fever and elevated white count and concern for possible cholecystitis. Patient is status post left laparoscopic cholecystectomy completed on 05/29/2023 with evidence of acute gangrenous cholecystitis On today's evaluation that is 06/01/2023 the patient did spike a low-grade fever of 100.7 F after midnight the patient is afebrile since then,Patient overall is feeling better he is breathing comfortably on room air no chest pain shortness of breath or cough no nausea no vomiting and no diarrhea Objective - Vital Signs Vital signs: Vital Signs Temp 97.9 F 06/01/23 08:00 Pulse 84 06/01/23 08:00 Resp 18 06/01/23 08:00 BP 133/88 06/01/23 08:00 Pulse Ox 95 06/01/23 09:54 FiO2 21 05/30/23 08:29 Intake & Output 05/31/23 06/01/23 06/01/23 18:59 06:59 18:59 Intake Total 118 Output Total 40 Balance -40 118 Intake: Oral 118 Output: Drainage 40 Abdomen 40 Other: Voiding Method Toilet # Voids 1 3 - Exam GENERAL DESCRIPTION: Middle-age male lying in bed in no distress RESPIRATORY SYSTEM: Unlabored breathing , decreased breath sounds at bases HEART: S1 S2 regular rate and rhythm , ABDOMEN: Soft , no tenderness EXTREMITIES: No edema feet - Labs CBC & Chem 7: 05/31/23 05:38 06/01/23 05:21 Labs: Abnormal Lab Results - Last 24 Hours (Table) 05/31/23 05/31/23 06/01/23 Range/Units 17:41 20:36 05:21 Carbon Dioxide 19.3 L (21.6-31.8) mmol/L Anion Gap 13.70 H (4.00-12.00) mmol/L Glucose 188 H (70-110) mg/dL POC Glucose (mg/dL) 227 H 244 H (70-110) mg/dL AST 60 H (14-35) U/L ALT 85 H (10-49) U/L Albumin 3.1 L (3.8-4.9) d/dL Albumin/Globulin Ratio 1.00 L (1.60-3.17) Ratio 06/01/23 06/01/23 Range/Units 06:04 11:34 Carbon Dioxide (21.6-31.8) mmol/L Anion Gap (4.00-12.00) mmol/L Glucose (70-110) mg/dL POC Glucose (mg/dL) 189 H 239 H (70-110) mg/dL AST (14-35) U/L ALT (10-49) U/L Albumin (3.8-4.9) d/dL Albumin/Globulin Ratio (1.60-3.17) Ratio Microbiology - Last 24 Hours (Table) 05/26/23 21:52 Blood Culture - Final Blood 05/26/23 05:20 Blood Culture - Final Blood Assessment and Plan (1) Fever Current Visit: Yes Status: Acute Code(s): R50.9 - FEVER, UNSPECIFIED SNOMED Code(s): 751359749 (2) Acute cholecystitis Current Visit: Yes Status: Acute Code(s): K81.0 - ACUTE CHOLECYSTITIS SNOMED Code(s): 39220092 Plan: 1patient with sepsis in this patient with fever tachycardia elevated white count he did have epigastric and right upper quadrant pain with abnormal CT and MRI high clinical suspicious for acute cholecystitis and we will need to call for the enteric gram-negative to be the likely pathogen 2- ultrasound of the gallbladder area suspicious for cholecystitis and patient is status post laparoscopic cholecystectomy for acute gangrenous cholecystitis 3-Patient did have low-grade fever last night however the patient white count has normalized we will continue Zosyn and plan to finish therapy with oral Augmentin Time with Patient: Less than 30
[2023-06-02] MEDS: ATORVASTATIN 10 MG TAB PO SCH (08:59)
[2023-06-02] MEDS: METOPROLOL SUCCINATE (ER) 50 MG TAB.ER.24H PO SCH (08:59)
[2023-06-02] MEDS: hydrALAZINE HCL 10 MG TAB PO SCH (08:59)
[2023-06-02] MEDS: PARoxetine 10 MG TAB PO SCH (08:59)
[2023-06-02] MEDS: APIXABAN 5 MG TAB PO SCH (08:59)
--- NOTE | 2023-06-02 10:01 | P.DS ---
Providers Date of admission: 05/25/23 07:54 Expected date of discharge: 06/02/23 Attending physician: Jacki Allen DO Consults: 05/25/23 12:38 Consult Physician Routine Consulting Provider: Iliana Fermin Consult Reason/Comments: liver lesion, hx of renal cell carcinoma Do you want consulting provider notified?: Yes 05/26/23 21:41 Consult Physician Urgent Consulting Provider: Siddharth Oneil Consult Reason/Comments: Sepsis Do you want consulting provider notified?: Yes, Notify in am 05/27/23 09:53 Consult Physician Routine Consulting Provider: Hunter De La Vega Consult Reason/Comments: r/o acute cholecystitis Do you want consulting provider notified?: Yes Primary care physician: Physician Nonstaff Hospital Course: Discharge Diagnosis: Acute gangrenous cholecystitis with sepsis s/p lap gege on 05/29/23 Type 2 diabetes mellitus patient with elevated A1c of 9.6. Liver hemiangioma Systolic cardiomyopathy- improving from 2019- follow-up with PCP HTN Hospital Course: Patient is a 47-year-old male with a history of renal cell cancer, type 2 diabetes ysu-dxsuygb-[id number] poorly controlled, hypertension, dyslipidemia, and A. fib status post cardiac ablation on anticoagulation with Eliquis who presented to the emergency department with chest pain. In the ER he underwent an extensive evaluation. CTA of the thoracic, abdominal, and pelvic aorta revealed no evidence of dissection or aneurysm but some wall thickening of the rectum without surrounding inflammatory changes, splenomegaly, and hepatic steatosis with likely liver hemangioma. He was initially admitted for chest pain etiology. He was seen by cardiology and placed on the telemetry unit. Hematology oncology was consulted. Troponins remained negative, lipid profile is within normal limits. Hemoglobin A1c elevated at 9.6. Echocardiogram demonstrating ejection fraction of 40-45%, cardiology recommending outpatient follow-up. Patient was seen by oncology and MRI of the liver was ordered confirming hemangioma. He spiked a fever on the morning of 05/26 and ultimately underwent a gallbladder ultrasound which showed trace pericholecystic fluid and hepatic steatosis. He was started on Zosyn and IV fluids. He had a mildly elevated lactate of 2.1. He was seen by general surgery and ultimately underwent a laparoscopic cholecystectomy about 05/29/23 which demonstrated a gangrenous gallbladder. His fevers abated his appetite returned and he was determined stable for discharge. Follow-up: KRISHAN drain was removed prior to discharge. Dr. De La Vega on06/12 and his PCP in 1-3 days. Augmentin 875 twice a day for 5 more days and [place] for pain. Low-fat diet carb consistent. Checking blood sugars closely. He was given instructions to derease is insulin dose at home Patient seen and examined at bedside. Tolerating his diet. Abdominal pain is better. Feels well and wants to go home. Vital signs reviewed and stable. General: nontoxic, no distress, appears at stated age Cardiovascular: S1S2 reg, no murmur, positive posterior tibial pulse bilateral, Lungs: CTA bilateral, no rhonchi, no rales , no accessory muscle use Abdominal: soft, nontender to palpation, no guarding, no appreciable organomegaly Ext: no gross muscle atrophy, no edema b/l lower extremities, no contractures Neuro: CN II-XI grossly intact, no focal neuro deficits Psych: Alert, oriented, appropriate affect A total of 37 minutes of time were spent preparing this complex discharge summary. Patient was discharged on 06/02/23. This dictation was prepared using [employer] voice recognition software. Though every attempt is made to correct errors during dictation some may still exist. Patient Condition at Discharge: Stable Plan - Discharge Summary New Discharge Prescriptions: New Amoxic-Pot Clav 875-125Mg [Augmentin 875-125] 1 tab PO Q12HR 5 Days #10 tab HYDROcodone/APAP 5-325MG [[place] 5-325] 1 tab PO Q6HR PRN 3 Days #12 tab PRN Reason: Pain Continue Empagliflozin [Jardiance] 25 mg PO DAILY Cyanocobalamin (Vitamin B-12) [Vitamin B-12] 1,000 mcg PO DAILY Atorvastatin [Lipitor] 10 mg PO DAILY PARoxetine HCL [Paxil] 10 mg PO DAILY Insulin Glargine,Hum.rec.anlog [Lantus Solostar Pen] 38 units SQ HS methocarbamoL [Methocarbamol] 500 - 1,000 mg PO QID PRN PRN Reason: Pain hydrOXYzine pamoate [Vistaril] 25 mg PO QID PRN PRN Reason: Anxiety Gabapentin 600 mg PO TID PRN PRN Reason: Pain Cholecalciferol [Vitamin D3 (25 Mcg = 1000 Iu)] 25 mcg PO DAILY Metoprolol Succinate (ER) [Toprol XL] 50 mg PO DAILY Apixaban [Eliquis] 5 mg PO BID hydrALAZINE HCL [Apresoline] 10 mg PO TID HYDROcodone/APAP 5-325MG [[place] 5-325] 1 tab PO TID PRN PRN Reason: Pain Insulin Aspart [NovoLOG Flexpen] 60 units SQ AC-BRKFST Insulin Aspart [NovoLOG Flexpen] 40 units SQ AC-SUPPER No Action Fish Oil/Dha/Epa [Fish Oil 1,200 mg Fish Oil] 1 cap PO DAILY Discharge Medication List Apixaban [Eliquis] 5 mg PO BID 05/25/23 [History] Atorvastatin [Lipitor] 10 mg PO DAILY 05/25/23 [History] Cholecalciferol [Vitamin D3 (25 Mcg = 1000 Iu)] 25 mcg PO DAILY 05/25/23 [History] Cyanocobalamin (Vitamin B-12) [Vitamin B-12] 1,000 mcg PO DAILY 05/25/23 [History] Empagliflozin [Jardiance] 25 mg PO DAILY 05/25/23 [History] Fish Oil/Dha/Epa [Fish Oil 1,200 mg Fish Oil] 1 cap PO DAILY 05/25/23 [History] Gabapentin 600 mg PO TID PRN 05/25/23 [History] HYDROcodone/APAP 5-325MG [[place] 5-325] 1 tab PO TID PRN 05/25/23 [History] Insulin Aspart [NovoLOG Flexpen] 40 units SQ AC-SUPPER 05/25/23 [History] Insulin Aspart [NovoLOG Flexpen] 60 units SQ AC-BRKFST 05/25/23 [History] Insulin Glargine,Hum.rec.anlog [Lantus Solostar Pen] 38 units SQ HS 05/25/23 [History] Metoprolol Succinate (ER) [Toprol XL] 50 mg PO DAILY 05/25/23 [History] PARoxetine HCL [Paxil] 10 mg PO DAILY 05/25/23 [History] hydrALAZINE HCL [Apresoline] 10 mg PO TID 05/25/23 [History] hydrOXYzine pamoate [Vistaril] 25 mg PO QID PRN 05/25/23 [History] methocarbamoL [Methocarbamol] 500 - 1,000 mg PO QID PRN 05/25/23 [History] Amoxic-Pot Clav 875-125Mg [Augmentin 875-125] 1 tab PO Q12HR 5 Days #10 tab 06/01/23 [Rx] HYDROcodone/APAP 5-325MG [[place] 5-325] 1 tab PO Q6HR PRN 3 Days #12 tab 06/01/23 [Rx] Follow up Appointment(s)/Referral(s): Nonstaff,Physician [Primary Care Provider] - 1-2 days Hunter De La Vega MD [STAFF PHYSICIAN] - 06/12/23 10:30 am () Patient Instructions/Handouts: *Surgery [facility] - ([facility]) Laparoscopic Cholecystectomy Post-Op Instruct Activity/Diet/Wound Care/Special Instructions: Activity: as tolerated Diet: low fat, consistent carb Special Instructions: You have only required small amounts of insulin while here for your first few days at home please take 1/2 or less of your insulin to avoid hypoglycemia No driving while taking [place] No lifting over 10 pounds You may shower. No soaking or tub baths for 2 weeks Very light activity until you are reevaluated at your follow up appointment with your surgeon Discharge Disposition: HOME SELF-CARE
[2023-06-02 11:07] LABS: Basophils # (A) 0.06 X 10*3/uL (0.00-0.10); Basophils % (A) 0.7 %; Eosinophils # (A) 0.17 X 10*3/uL (0.04-0.35); Eosinophils % (A) 1.9 %; HCT 40.6 % (39.6-50.0); HGB 13.3 d/dL (12.0-15.0); Lymphocytes # (A) 2.22 X 10*3/uL (0.90-5.00); Lymphocytes % (A) 24.2 %; MCHC 32.8 d/dL (32.0-37.0); MCV 91.4 FL (80.0-97.0); Monocytes # (A) 0.71 X 10*3/uL (0.20-1.00); Monocytes % (A) 7.8 %; NRBC Per 100 WBC 0 X 10*3/uL (0.00-0.01); Neutrophils # (A) 5.59 X 10*3/uL (1.80-7.70); Neutrophils % (A) 60.9 %; Platelet Count 401 X 10*3/uL (140-440); RBC 4.44 X 10*6/uL (4.40-5.60); RDW 12.7 % (11.5-14.5); WBC 9.16 X 10*3/uL (4.50-10.00)
--- NOTE | 2023-06-02 12:23 | P.PN ---
Subjective Progress Note Date: 06/02/23 CHIEF COMPLAINT: Gangrenous cholecystitis HISTORY OF PRESENT ILLNESS: Patient postop day #4 status post laparoscopic cholecystectomy for acute gangrenous cholecystitis. Patient reports pain is controlled. He is tolerating diet. Denies any nausea or vomiting. Patient has had no further fevers. KRISHAN drain with 50 mL serosanguineous output. Afebrile PHYSICAL EXAM: VITAL SIGNS: Reviewed. GENERAL: Well-developed in no acute distress. HEENT: No sclera icterus. Extraocular movements grossly intact. Moist buccal mucosa. Head is atraumatic, normocephalic. ABDOMEN: Soft. Nondistended. Incision sites clean dry and intact. KRISHAN drain in place with serosanguineous output ASSESSMENT: 1. Acute gangrenous cholecystitis status post laparoscopic cholecystectomy PLAN: -Patient can be discharged from surgical standpoint with outpatient follow up -Discontinue KRISHAN drain before discharge Physician Wool Presser note has been reviewed by physician. Signing provider agrees with the documented findings, assessment, and plan of care. Objective - Vital Signs Vital signs: Vital Signs Temp 98.2 F 06/02/23 07:52 Pulse 81 06/02/23 07:52 Resp 16 06/02/23 07:52 BP 124/80 06/02/23 07:52 Pulse Ox 95 06/02/23 09:06 FiO2 21 05/30/23 08:29 Intake & Output 06/01/23 06/02/23 06/02/23 18:59 06:59 18:59 Intake Total 118 118 Output Total 50 Balance 118 -50 118 Intake: Oral 118 118 Output: Drainage 50 Abdomen 50 Other: Voiding Method Toilet # Voids 6 2 - Labs CBC & Chem 7: 06/02/23 06:52 06/01/23 05:21 Labs: Abnormal Lab Results - Last 24 Hours (Table) 06/01/23 06/01/23 06/01/23 Range/Units 11:34 17:34 20:17 POC Glucose (mg/dL) 239 H 279 H 280 H (70-110) mg/dL 06/02/23 Range/Units 06:09 POC Glucose (mg/dL) 236 H (70-110) mg/dL
--- NOTE | 2023-06-07 13:21 | CDI ---
Documentation Clarification Form Date: 06/07/2023 01:11:56 PM From: Britney Moreno Admit Date: 05/25/2023 07:54:00 AM Patient Name: Ev Giraldo Visit Number: [id number] Discharge Date: 06/02/2023 11:16:00 AM ATTENTION: The Clinical Documentation Specialists (CDI) and [facility] Coding Staff appreciate your assistance in clarifying documentation. Please respond to the clarification below the line at the bottom and electronically sign. The CDI & [facility] Coding staff will review the response and follow-up if needed. Please note: Queries are made part of the Legal Health Record. If you have any questions, please contact the author of this message via ITS. Dr. Jacki Allen ID documents in consult and PN 06/01 "Acute gangrenous cholecystitis with sepsis." Please clarify if patient had sepsis or was it ruled out. Based on this information and the findings below, is there an additional diagnosis that is clinically appropriate for this patient? History/Risk Factors: gangrenous cholecystitis Clinical Indicators: WBC 8.3 - 15.7 Lactic acid: 2.1 Blood cultures: negative Vitals signs: 98F - 100.7F, 86 bpm, 18, 164/106, 100% RA Treatment: IV antibiotics ID Consult: documents sepsis Antibiotics: Zosyn Is there an additional diagnosis that is clinically appropriate for this patient? [ ] Sepsis, present on admission [ X ] Sepsis, developed during stay, not present on admission [ ] Sepsis ruled out [ ] Other, please specify [ ] Unable to determine SIRS Criteria: 2 or more of the following may indicate SIRS Temperature < 96.8F (36C) or > 101.0F (38.3C) Heart Rate > 90 bpm Respiratory Rate > 20 breaths/min or PaCO2 < 32 mmHg White Blood Cell Count > 12,000 or < 4,000 cells/mm3 or > 10% bands MTDD
== END 2023-06-02 11:16 | disposition home or self-care (01) | DRG 263 ==
LOC: EC 03:33 → 6NMEDSUR 07:54 → OBSVTOIN 07:54 → 6NMEDSUR 17:29
PROVIDERS: ADMIT Internal Medicine; ATTEND Internal Medicine
PROC: 0FT44ZZ Resection of Gallbladder, Percutaneous Endoscopic Approach (ICD-10-PCS; principal; 2023-05-29 09:00)
DX: K81.0 Acute cholecystitis (principal); A41.9 Sepsis, unspecified organism; C64.9 Malignant neoplasm of unspecified kidney, except renal pelvis; D18.03 Hemangioma of intra-abdominal structures; E78.5 Hyperlipidemia, unspecified; I11.0 Hypertensive heart disease with heart failure; D69.6 Thrombocytopenia, unspecified; I42.8 Other cardiomyopathies; I50.9 Heart failure, unspecified; I48.91 Unspecified atrial fibrillation; Z79.01 Long term (current) use of anticoagulants; K76.0 Fatty (change of) liver, not elsewhere classified; E11.65 Type 2 diabetes mellitus with hyperglycemia; Z79.4 Long term (current) use of insulin; Z28.310 Unvaccinated for COVID-19; Z28.21 Immunization not carried out because of patient refusal; Z79.84 Long term (current) use of oral hypoglycemic drugs; Z79.899 Other long term (current) drug therapy; K82.8 Other specified diseases of gallbladder
CPT/HCPCS: 36415; 71046; 71275; 74174; 74183; 76705; 80053; 80061; 81003; 82009; 83036; 83605; 83735; 84484; 85025; 85027; 85379; 85610; 85730; 87040; 88304; 93005; 93306; 94760; 96374; 96375; 96376; 99285

== ENCOUNTER 2024-08-14 15:06 | Inpatient (IN) | payer OTHER ==
--- NOTE | 2024-08-14 16:30 | ED ---
Abdominal Pain HPI - General Source: patient, RN notes reviewed Mode of arrival: ambulatory Limitations: no limitations - History of Present Illness MD Complaint: abdominal pain <Pearl Perez - Last Filed: 08/14/24 16:29> <Patti Wolff - Last Filed: 08/14/24 23:28> - General Chief Complaint: Abdominal Pain Stated Complaint: navel bleed Time Seen by Provider: 08/14/24 16:20 - History of Present Illness Initial Comments: Quick Note: This is a 48-year-old male who presents to the emergency department for abdominal pain. Reports diffuse abdominal pain for the last couple of weeks and 3 days ago states that he started to get bleeding from his umbilicus. He has nausea but no vomiting. Denies any changes in bowel habits. (Pearl Perez) Is a 48-year-old gentleman with a past medical history of atrial fibrillation on Eliquis, renal cancer, prior cholecystectomy presenting today for abdominal pain. Patient states he has had pressure-like abdominal pain in the center of his abdomen for the last 2 weeks that is continued to get worse. 3 days ago he noticed blood streaming from his umbilicus. He was able to clean up the blood and the bleeding stopped. Happened again once yesterday. He got up to use the bathroom and noticed blood streaming into the toilet and then looked down at he umbilicus to find it bleeding again. He endorses associated lightheadedness, dizziness, shortness of breath and pain with deep breathing. States he feels like the abdominal pain now radiates upwards towards his chest. States home norco that he takes from chronic back pain is not helping his pain. Endorses nausea but denies vomiting. States that he has infrequent loose stools ever since his cholecystectomy a year ago but denies any black or grossly bloody stools. Endorses subjective fever and chills. No Tylenol or ibuprofen prior to arrival (Patti Wolff) - Related Data Home Medications Medication Instructions Recorded Confirmed Apixaban [Eliquis] 5 mg PO BID 05/25/23 08/14/24 Cholecalciferol [Vitamin D3 (25 25 mcg PO DAILY 05/25/23 08/14/24 Mcg = 1000 Iu)] Cyanocobalamin (Vitamin B-12) 1,000 mcg PO DAILY 05/25/23 08/14/24 [Vitamin B-12] Empagliflozin [Jardiance] 25 mg PO DAILY 05/25/23 08/14/24 Fish Oil/Dha/Epa [Fish Oil 1,200 1 cap PO DAILY 05/25/23 08/14/24 mg Fish Oil] Metoprolol Succinate (ER) [Toprol 50 mg PO DAILY 05/25/23 08/14/24 XL] hydrOXYzine pamoate [Vistaril] 25 mg PO QID PRN 05/25/23 08/14/24 PARoxetine [Paxil] 20 mg PO DAILY 08/14/23 08/14/24 Insulin Aspart Prot/Insuln Asp 16 - 20 unit SQ AC-SUPPER 08/14/24 08/14/24 [NovoLOG MIX 70-30 Flexpen] Tirzepatide [Mounjaro] 10 mg SQ MO 08/14/24 08/14/24 Allergies Allergy/AdvReac Type Severity Reaction Status Date / Time amoxicillin Allergy Rash/Hives Verified 08/14/24 19:16 clavulanic acid Allergy Rash/Hives Verified 08/14/24 19:16 [From Augmentin] Review of Systems ROS Other: All systems not noted in ROS Statement are negative. <Pearl Perez - Last Filed: 08/14/24 16:29> ROS Other: All systems not noted in ROS Statement are negative. <Patti Wolff - Last Filed: 08/14/24 23:28> ROS Statement: Those systems with pertinent positive or pertinent negative responses have been documented in the HPI. Past Medical History Past Medical History: Atrial Fibrillation, Heart Failure, Diabetes Mellitus Additional Past Medical History / Comment(s): Renal Cancer, blood clot in heart History of Any Multi-Drug Resistant Organisms: None Reported Past Surgical History: Cardiac Ablation, Orthopedic Surgery Past Psychological History: No Psychological Hx Reported Smoking Status: Former smoker Past Alcohol Use History: None Reported Past Drug Use History: None Reported <Pearl Perez - Last Filed: 08/14/24 16:29> General Exam Limitations: no limitations <Pearl Perez - Last Filed: 08/14/24 16:29> <Patti Wloff - Last Filed: 08/14/24 23:28> - General Exam Comments Initial Comments: Visual Physical Exam Vital signs reviewed General: Well-appearing, nontoxic, no acute distress. Head: Normocephalic, atraumatic Eyes: PERRLA, EOMI ENT: Airway patent Chest: Nonlabored breathing Skin: No visual rash, normal skin tone Neuro: Alert and oriented 3 Musculoskeletal: No gross abnormalities (Pearl Perez) PE: CONSTITUTIONAL: No apparent distress, toxic appearing, ill-appearing SKIN: Warm, dry, no jaundice, hives or petechiae; pallor EYES: Pupils are equally round, extraocular movements intact without nystagmus, clear conjunctiva, non-icteric sclera HENT: Normocephalic, atraumatic, moist mucus membranes, oropharynx clear without exudates NECK: , Full range of motion, normal appearance PULMONARY: Clear to auscultation without wheezes, rhonchi, or rales, normal excursion, no accessory muscle use and no stridor CARDIOVASCULAR: Regular rate, rhythm, normal S1 and S2. No appreciated murmurs, rubs or gallops. Strong radial pulses with intact distal perfusion. No lower extremity edema GASTROINTESTINAL: Soft, non-tender, non-distended, no palpable masses, no rebound or guarding. No hepatosplenomegaly GENITOURINARY: MUSCULOSKELETAL: Extremities have no gross deformity, no edema, redness, or swelling. No calf swelling ot TTP. NEUROLOGIC:_a/o x 3, GCS 15, normal mentation and speech. Moves all extremities x 4 without motor or sensory deficit PSYCHIATRIC:_normal mood and affect, thought process is clear and linear (Patti Wolff) Course Vital Signs 08/14/24 08/14/24 08/14/24 15:32 19:42 20:51 Temperature 97.9 F Pulse Rate 125 H 100 90 Respiratory 22 18 18 Rate Blood Pressure 117/78 120/88 140/100 O2 Sat by Pulse 97 100 99 Oximetry 08/14/24 23:15 Temperature Pulse Rate 78 Respiratory 17 Rate Blood Pressure 129/74 O2 Sat by Pulse 98 Oximetry Medical Decision Making <Pearl Perez - Last Filed: 08/14/24 16:29> - Lab Data Result diagrams: 08/14/24 17:32 08/14/24 17:20 <Patti Wolff - Last Filed: 08/14/24 23:28> - Medical Decision Making I performed the QuickNote portion of this chart. Signed Pearl Perez PA-C. (Pearl Perez) M was pt. sent in by a medical professional or institution (KIKA Moreno, PROFILE [employer], urgent care, hospital, or alf...) When possible be specific @ -No Did you speak to anyone other than the patient for history (EMS, parent, family, police, friend...)? What history was obtained from this source @ -No Did you review nursing and triage notes (agree or disagree)? Why? @ -I reviewed and agree with nursing and triage notes Were old charts reviewed (outside hosp., previous admission, EMS record, old EKG, old radiological studies, urgent care reports/EKG's, alf records)? Report findings @ -Reviewed discharge summary from visit on 05/29/2023 for gangrenous cholecystitis status post laparoscopic cholecystectomy Differential Diagnosis (chest pain, altered mental status, abdominal pain women, abdominal pain men, vaginal bleeding, weakness, fever, dyspnea, syncope, headache, dizziness, GI bleed, back pain, seizure, CVA, palpatations, mental health, musculoskeletal)? @ -Differential dx reamins broad however top considerations include diverticulosis, ischemic bowel, pancreatitis, hepatitis, UTI, gastroenteritis, incarcerated hernia, constipation, SBO, ileus this is not all-inclusive list EKG interpreted by me (3pts min.). @ -Sinus tachycardia, rate 102 bpm, VA interval 163 ms, QRS duration 94 ms, QT/QTc 331/389 ms, left axis deviation, PACs present throughout, no obvious ST elevation or depressions X-rays interpreted by me (1pt min.). @ -None done CT interpreted by me (1pt min.). @ -Bowel wall thickening, no definite transition point, no free air U/S interpreted by me (1pt. min.). @ -None done What testing was considered but not performed or refused? (CT, X-rays, U/S, labs)? Why? @ -None What meds were considered but not given or refused? Why? @ -None Did you discuss the management of the patient with other professionals (professionals i.e. KIKA Moreno, [employer], lab, RT, psych nurse, home health care social worker, catalyst supervisor, teacher, reserve officer, correctional case manager)? Give summary @Discussed patient's case with Dr. Robert, general surgery Was smoking cessation discussed for >3mins.? @ -No Was critical care preformed (if so, how long)? @ -Yes, 45 minutes Were there social determinants of health that impacted care today? How? (Homelessness, low income, unemployed, alcoholism, drug addiction, transportation, low edu. Level, literacy, decrease access to med. care, retirement, rehab)? @ -No Was there de-escalation of care discussed even if they declined (Discuss DNR or withdrawal of care, Hospice)? @ -No What co-morbidities impacted this encounter? (DM, HTN, Smoking, COPD, CAD, Canc er, CVA, ARF, Chemo, Hep., AIDS, mental health diagnosis, sleep apnea, morbid obesity)? @ -Atrial fibrillation on Eliquis, heart failure, diabetes mellitus Was patient admitted / discharged? Hospital course, mention meds given and route, prescriptions, significant lab abnormalities, going to OR and other pertinent info. @ - admitted-is a 48-year-old gentleman with a past medical history of atrial fibrillation on Eliquis, diabetes, CHF, prior cholecystectomy presenting today for diffuse abdominal pain and bleeding from his umbilicus. On assessment patient is ill-appearing but nontoxic. He is awake and alert. Abdomen is nondistended, soft with active bowel sounds throughout, generalized tenderness to palpation, small drop dark red blood at umbilicus, when wiped away there is no obvious fistula or laceration, bleeding not ongoing after initial drop of blood wiped away, no LE edema, LCTAB, limited excursion 2/2 pain with inspiration, normal S1/2 on cardiac exam, patient somewhat pale but extremities are well perfused. Discussed with the patient plan for imaging, pain control , abx, fluids, labs. Anticipate admission. CT with concern for ileus. D lab significant thus far for lactic of 2.1, discussed case with Dr. Robert, general surgery who kindly recommends n.p.o. with ice chips, pain control admit to medicine, Dr. Olguin. Pt updated to results and plan of care. He is agreeable with plan. Discussed with MAGDALENO Davis, kindly accepts for admission. Pt admitted in stable condition. CMP pending at time of admission 2/2 labs error. Will follow CMP reviewed, significant for DAVION, creatinine 1.78 previously 0.88, suspect secondary to volume depletion. Patient to be cautiously volume resuscitated due to history of CHF. Undiagnosed new problem with uncertain prognosis? @ -No Drug Therapy requiring intensive monitoring for toxicity (Heparin, Nitro, Insulin, Cardizem)? @ -No Were any procedures done? @ -No Diagnosis/symptom? @ -Ileus, DAVION Acute, or Chronic, or Acute on Chronic? @ -Acute Uncomplicated (without systemic symptoms) or Complicated (systemic symptoms)? @ complicated Side effects of treatment? @ -No Exacerbation, Progression, or Severe Exacerbation? @ -No Poses a threat to life or bodily function? How? (Chest pain, USA, NH, pneumonia, PE, COPD, DKA, ARF, appy, cholecystitis, CVA, Diverticulitis, Homicidal, Suicidal, threat to staff... and all critical care pts) @ potentially, Yes (Patti Wolff) - Lab Data Lab Results 08/14/24 08/14/24 08/14/24 Range/Units 17:20 17:20 17:20 WBC (3.8-10.6) k/uL RBC (4.30-5.90) m/uL Hgb (13.0-17.5) gm/dL Hct (39.0-53.0) % MCV (80.0-100.0) fL MCH (25.0-35.0) pg MCHC (31.0-37.0) g/dL RDW (11.5-15.5) % Plt Count (150-450) k/uL MPV Neutrophils % % Lymphocytes % % Monocytes % % Eosinophils % % Basophils % % Neutrophils # (1.3-7.7) k/uL Lymphocytes # (1.0-4.8) k/uL Monocytes # (0-1.0) k/uL Eosinophils # (0-0.7) k/uL Basophils # (0-0.2) k/uL PT (10.0-12.5) sec INR (<1.2) APTT (22.0-30.0) sec Sodium 142 (137-145) mmol/L Potassium 4.4 (3.5-5.1) mmol/L Chloride 107 (98-107) mmol/L Carbon Dioxide 24 (22-30) mmol/L Anion Gap 11 mmol/L BUN 18 (9-20) mg/dL Creatinine 1.78 H (0.66-1.25) mg/dL Est GFR (CKD-EPI)AfAm 52 (>60 ml/min/1.73 sqM) Est GFR (CKD-EPI)NonAf 45 (>60 ml/min/1.73 sqM) Glucose 288 H (74-99) mg/dL Lactic Ac Sepsis Rflx Plasma Lactic Acid Prudencio 2.1 H* (0.7-2.0) mmol/L Calcium 10.4 H (8.4-10.2) mg/dL Total Bilirubin 0.9 (0.2-1.3) mg/dL AST 50 (17-59) U/L ALT 65 H (4-49) U/L Alkaline Phosphatase 124 (38-126) U/L Troponin I (0.000-0.034) ng/mL Total Protein 8.6 H (6.3-8.2) g/dL Albumin 5.2 H (3.5-5.0) g/dL Amylase 56 (30-110) U/L Lipase 151 (23-300) U/L 08/14/24 08/14/24 08/14/24 Range/Units 17:20 17:20 17:32 WBC 10.5 (3.8-10.6) k/uL RBC 6.04 H (4.30-5.90) m/uL Hgb 18.3 H (13.0-17.5) gm/dL Hct 54.3 H (39.0-53.0) % MCV 89.9 (80.0-100.0) fL MCH 30.3 (25.0-35.0) pg MCHC 33.6 (31.0-37.0) g/dL RDW 13.1 (11.5-15.5) % Plt Count 294 (150-450) k/uL MPV 7.5 Neutrophils % 78 % Lymphocytes % 15 % Monocytes % 6 % Eosinophils % 0 % Basophils % 0 % Neutrophils # 8.1 H (1.3-7.7) k/uL Lymphocytes # 1.6 (1.0-4.8) k/uL Monocytes # 0.6 (0-1.0) k/uL Eosinophils # 0.0 (0-0.7) k/uL Basophils # 0.0 (0-0.2) k/uL PT 9.6 L (10.0-12.5) sec INR 0.8 (<1.2) APTT 23.9 (22.0-30.0) sec Sodium (137-145) mmol/L Potassium (3.5-5.1) mmol/L Chloride (98-107) mmol/L Carbon Dioxide (22-30) mmol/L Anion Gap mmol/L BUN (9-20) mg/dL Creatinine (0.66-1.25) mg/dL Est GFR (CKD-EPI)AfAm (>60 ml/min/1.73 sqM) Est GFR (CKD-EPI)NonAf (>60 ml/min/1.73 sqM) Glucose (74-99) mg/dL Lactic Ac Sepsis Rflx Plasma Lactic Acid Prudencio (0.7-2.0) mmol/L Calcium (8.4-10.2) mg/dL Total Bilirubin (0.2-1.3) mg/dL AST (17-59) U/L ALT (4-49) U/L Alkaline Phosphatase (38-126) U/L Troponin I <0.012 (0.000-0.034) ng/mL Total Protein (6.3-8.2) g/dL Albumin (3.5-5.0) g/dL Amylase (30-110) U/L Lipase (23-300) U/L 08/14/24 Range/Units 18:02 WBC (3.8-10.6) k/uL RBC (4.30-5.90) m/uL Hgb (13.0-17.5) gm/dL Hct (39.0-53.0) % MCV (80.0-100.0) fL MCH (25.0-35.0) pg MCHC (31.0-37.0) g/dL RDW (11.5-15.5) % Plt Count (150-450) k/uL MPV Neutrophils % % Lymphocytes % % Monocytes % % Eosinophils % % Basophils % % Neutrophils # (1.3-7.7) k/uL Lymphocytes # (1.0-4.8) k/uL Monocytes # (0-1.0) k/uL Eosinophils # (0-0.7) k/uL Basophils # (0-0.2) k/uL PT (10.0-12.5) sec INR (<1.2) APTT (22.0-30.0) sec Sodium (137-145) mmol/L Potassium (3.5-5.1) mmol/L Chloride (98-107) mmol/L Carbon Dioxide (22-30) mmol/L Anion Gap mmol/L BUN (9-20) mg/dL Creatinine (0.66-1.25) mg/dL Est GFR (CKD-EPI)AfAm (>60 ml/min/1.73 sqM) Est GFR (CKD-EPI)NonAf (>60 ml/min/1.73 sqM) Glucose (74-99) mg/dL Lactic Ac Sepsis Rflx Y Plasma Lactic Acid Prudencio (0.7-2.0) mmol/L Calcium (8.4-10.2) mg/dL Total Bilirubin (0.2-1.3) mg/dL AST (17-59) U/L ALT (4-49) U/L Alkaline Phosphatase (38-126) U/L Troponin I (0.000-0.034) ng/mL Total Protein (6.3-8.2) g/dL Albumin (3.5-5.0) g/dL Amylase (30-110) U/L Lipase (23-300) U/L Disposition <Pearl Perez - Last Filed: 08/14/24 16:29> <Patti Wolff - Last Filed: 08/14/24 23:28> Clinical Impression: Ileus, DAVION (acute kidney injury) Disposition: ADMITTED IP TO THIS HOSP
[2024-08-14] MEDS ORDERED: PIPERACILLIN-TAZOBACTAM 4.5 GM in SODIUM CHLORIDE 0.9% 100 ML IVPB STA (17:36)
[2024-08-14 17:51] LABS: Amylase 56 U/L (30-110); Lipase 151 U/L (23-300)
--- NOTE | 2024-08-14 18:05 | CT ---
EXAMINATION TYPE: CT abdomen pelvis w con CT DLP: 1294.1 mGycm, Automated exposure control for dose reduction was used. DATE OF EXAM: 08/14/2024 5:49 PM COMPARISON: CT abdomen pelvis most recent from 05/25/2023. CLINICAL INDICATION: Male, 48 years old with history of Abdominal pain, acute, nonlocalized; abdomina l pain, umbilical bleeding TECHNIQUE: Axial CT abdomen pelvis w con;Sagittal and coronal reformats were created on a separate w orkstation. Contrast used:100 ml mL of Isovue 300 with IV Contrast, (none if empty) Oral contrast used: without Oral Contrast (none if empty) FINDINGS: LOWER CHEST: Unremarkable ABDOMEN LIVER: Hepatic dome lesion with peripheral nodular discontinuous enhancement lesion near the capsule measuring 28 mm. Findings most compatible with benign hemangioma. GALLBLADDER AND BILE DUCTS: Unremarkable. PANCREAS: Unremarkable. SPLEEN: Unremarkable. ADRENAL GLANDS: Unremarkable. KIDNEYS AND URETERS: No evidence of hydronephrosis or renal calculus. The ureters are unremarkable. PELVIS BLADDER: Unremarkable REPRODUCTIVE: Unremarkable. ABDOMEN & PELVIS STOMACH AND BOWEL: Portion duodenal diverticulum. No evidence of bowel obstruction. The appendix appe ars normal. PERITONEUM/RETROPERITONEUM: No evidence of pneumoperitoneum or free fluid. VASCULATURE: No evidence of aortic aneurysm. MUSCULOSKELETAL: No acute osseous abnormalities LYMPH NODES: No gross evidence for lymphadenopathy. SOFT TISSUE/ABDOMINAL WALL: Is mild skin thickening around umbilicus. No organizing fluid collection. IMPRESSION: 1. Small bowel dilation without definitive transition point. Correlate for ileus consider dedicated small bowel follow-through. 2. Hepatic dome lesion with peripheral nodular discontinuous enhancement lesion near the capsule braden suring 28 mm. Findings most compatible with benign hemangioma. Findings stable to prior 05/25/2023. [facility], , 08/14/2024 6:03 PM
[2024-08-14 18:07] LABS: Basophils % (A) 0 %; Eosinophils % (A) 0 %; HCT 54.3 % (39.0-53.0); HGB 18.3 gm/dL (13.0-17.5); Lymphocytes # (A) 1.6 k/uL (1.0-4.8); Lymphocytes % (A) 15 %; MCH 30.3 pg (25.0-35.0); MCHC 33.6 g/dL (31.0-37.0); MCV 89.9 fL (80.0-100.0); Mean Platelet Volume 7.5; Monocytes # (A) 0.6 k/uL (0-1.0); Monocytes % (A) 6 %; Neutrophils # (A) 8.1 k/uL (1.3-7.7); Neutrophils % (A) 78 %; Platelet Count 294 k/uL (150-450); RBC 6.04 m/uL (4.30-5.90); RDW 13.1 % (11.5-15.5); WBC 10.5 k/uL (3.8-10.6)
[2024-08-14] MEDS: SODIUM CHLORIDE 0.9% 500 ML 500 ML IV SCH (18:40)
[2024-08-14] MEDS: PIPERACILLIN-TAZOBACTAM 3.375 GM in SODIUM CHLORIDE 0.9% 100 ML IVPB STA (18:42)
--- NOTE | 2024-08-14 19:02 | XR ---
EXAMINATION TYPE: XR chest 2V DATE OF EXAM: 08/14/2024 6:58 PM CLINICAL INDICATION:Male, 48 years old with history of chest pain radiating from abdomen; [facility] COMPARISON: Chest radiographs from 08/13/2023. TECHNIQUE: XR chest 2V Frontal and lateral views of the chest. FINDINGS: Lungs/Pleura: There is no evidence of pleural effusion, focal consolidation, or pneumothorax. Pulmonary vascularity: Unremarkable. Heart/mediastinum: Cardiomediastinal silhouette is unremarkable. Musculoskeletal: No acute osseous pathology. IMPRESSION: No acute cardiopulmonary disease/process. [facility], , 08/14/2024 6:59 PM
[2024-08-14] MEDS: MORPHINE SULFATE 4 MG/ML SYRINGE IVP STA (19:34)
[2024-08-14] MEDS: ONDANSETRON 4 MG/2 ML VIAL IVP STA (19:34)
[2024-08-14] MEDS ORDERED: NALOXONE 0.4 MG/ML 1 ML VIAL IV PRN (20:00)
[2024-08-14] MEDS ORDERED: ONDANSETRON 4 MG/2 ML VIAL IVP PRN (20:03)
[2024-08-14] MEDS ORDERED: MORPHINE SULFATE 4 MG/ML SYRINGE IV PRN (20:03)
[2024-08-14] MEDS ORDERED: hydrOXYzine pamoate 25 MG CAP PO PRN (20:04)
[2024-08-14 20:28] LABS: ALT 65 U/L (4-49); AST 50 U/L (17-59); African American GFR (CKD) 52 (>60 ml/min/1.73 sqM); Albumin 5.2 g/dL (3.5-5.0); Alkaline Phosphatase 124 U/L (38-126); Anion Gap 11 mmol/L; Blood Urea Nitrogen 18 mg/dL (9-20); Calcium 10.4 mg/dL (8.4-10.2); Carbon Dioxide 24 mmol/L (22-30); Chloride 107 mmol/L (98-107); Glucose 288 mg/dL (74-99); Non-African American GFR(CKD) 45 (>60 ml/min/1.73 sqM); Potassium 4.4 mmol/L (3.5-5.1); Sodium 142 mmol/L (137-145); Total Bilirubin 0.9 mg/dL (0.2-1.3); Total Protein 8.6 g/dL (6.3-8.2)
[2024-08-14 20:44] LABS: INR 0.8 (<1.2); Partial Thromboplastin Time 23.9 sec (22.0-30.0); Prothrombin Time 9.6 sec (10.0-12.5)
[2024-08-14] MEDS: APIXABAN 5 MG TAB PO SCH (21:58)
[2024-08-14] MEDS: SODIUM CHLORIDE 0.9% 1,000 ML IV SCH (23:14)
[2024-08-15] MEDS: HYDROmorphone 0.5 MG/0.5 ML SYRINGE IVP PRN (01:44)
[2024-08-15 08:36] LABS: Appearance,Urine Clear (Clear); Bilirubin,Urine Negative (Negative); Blood,Urine Negative (Negative); Color,Urine Colorless; Glucose,Urine (UA) 4+ (Negative); Ketones,Urine Negative (Negative); Leukocyte Esterase,Urine Negative (Negative); Nitrite,Urine Negative (Negative); Protein,Urine Negative (Negative); Specific Gravity,Urine 1.029 (1.001-1.035); Urobilinogen,Urine <2.0 mg/dL (<2.0)
[2024-08-15] MEDS: METOPROLOL SUCCINATE (ER) 50 MG TAB.ER.24H PO SCH (09:19)
[2024-08-15] MEDS: PANTOPRAZOLE 40 MG/10 ML VIAL IV SCH (09:19)
[2024-08-15] MEDS: PARoxetine 20 MG TAB PO SCH (09:56)
[2024-08-15 11:23] LABS: Basophils # (A) 0.07 X 10*3/uL (0.00-0.10); Basophils % (A) 0.7 %; Eosinophils # (A) 0.15 X 10*3/uL (0.04-0.35); Eosinophils % (A) 1.4 %; HCT 45.3 % (39.6-50.0); HGB 15.2 g/dL (13.0-17.0); Lymphocytes # (A) 3.75 X 10*3/uL (0.90-5.00); Lymphocytes % (A) 35.9 %; MCH 29.6 pg (27.0-32.0); MCHC 33.6 g/dL (32.0-37.0); MCV 88.3 FL (80.0-97.0); Monocytes # (A) 0.73 X 10*3/uL (0.20-1.00); NRBC Per 100 WBC 0 X 10*3/uL (0.00-0.01); Neutrophils % (A) 54.6 %; Platelet Count 198 X 10*3/uL (140-440); RBC 5.13 X 10*6/uL (4.40-5.60); RDW 13.4 % (11.5-14.5); WBC 10.44 X 10*3/uL (4.50-10.00)
[2024-08-15 11:28] LABS: BUN/Creat Ratio 9.93 Ratio (12.00-20.00); Blood Urea Nitrogen 13.9 mg/dL (9.0-27.0); Calcium 8.6 mg/dL (8.7-10.3); Carbon Dioxide 19.7 mmol/L (21.6-31.8); Chloride 110 mmol/L (96-109); Glucose 89 mg/dL (70-110); Potassium 4.3 mmol/L (3.5-5.5); Sodium 143 mmol/L (135-145)
[2024-08-15 12:29] LABS: Glucose,Whole Blood 88 mg/dL (70-110)
--- NOTE | 2024-08-15 12:35 | P.GSCN ---
History of Present Illness Consult date: 08/15/24 History of present illness: CHIEF COMPLAINT: Abdominal pain HISTORY OF PRESENT ILLNESS: This is a 48-year-old male who presented to the hospital with complaints of abdominal pain mostly at the umbilicus for the last 2 weeks. Patient also reports some diffuse pain as well. He has been nauseous. His bowel movements have been loose. But that has been normal since he had his cholecystectomy in May 2023. Patient also reports having bleeding from the umbilicus for the past 4 days. He is on Eliquis at home. Did receive a dose of Eliquis today. He had a CT scan abdomen and pelvis that reported an ileus. Patient also has a history of renal cancer in 2019 treated with ablation at [facility]. Patient reports no injury to the umbilicus. No purulent drainage. He denies any scabbing or itching of the area. PAST MEDICAL HISTORY: See list. Diabetic PAST SURGICAL HISTORY: See list. MEDICATIONS: See list. ALLERGIES: See list. SOCIAL HISTORY: No illicit drug use. REVIEW OF SYSTEMS: CONSTITUTIONAL: Denies fever or chills. HEENT: Denies blurred vision, vision changes, or eye pain. Denies hemoptysis ENDOCRINE: Denies heat or cold intolerance. CARDIOVASCULAR: Denies chest pain or pressure. RESPIRATORY: No shortness of breath. GASTROINTESTINAL: Denies abdominal pain. Denies nausea or vomiting. NEURO: Denies history of seizures. PSYCH: No depression or suicidal ideation HEMATOLOGIC: Denies bleeding disorders. LYMPHATIC: The patient denies any lumps and bumps around the neck. GENITOURINARY: Denies any blood in urine or increased urinary frequency. MUSCULOSKELETAL: Denies myalgias. Denies joint swelling. Denies decreased range of motion beyond patients baseline. SKIN: Denies pruitis. Denies rash. PHYSICAL EXAM: VITAL SIGNS: Reviewed GENERAL: Well-developed in no acute distress. HEENT: No sclera icterus. Extraocular movements grossly intact. Moist buccal mucosa. Head is atraumatic, normocephalic. Hears conversational speech. No nasal drainage. NECK: Supple without lymphadenopathy. CHEST: Non-labored respirations and equal bilateral excursions. CARDIOVASCULAR: Palpable 2+ radial pulses. ABDOMEN: Soft. Nondistended. Diffuse tenderness. Tenderness palpation of the umbilicus. Dried blood noted at the umbilicus MUSCULOSKELETAL: No clubbing or cyanosis. NEUROLOGIC: No focal or lateralizing signs. Cranial nerves II through XII grossly intact. PSYCH: Appropriate affect. Alert and oriented to person, place and time. SKIN: Well perfused. Good skin turgor. LABORATORY DATA: WBC 10.44 Hgb 15.2 platelets 198 Creatinine 1.78 down to 1.4 sodium 143 potassium is 4.3 Glucose 288 down to 89 Lactic acid 2.1 down to 1.0 IMAGING: CT scan abdomen and pelvis reports small bowel dilation without definitive transition point. Correlate for ileus. Hepatic dome lesion with peripheral nodular discontinuous enhancement lesion near the capsule measuring 28 mm. Findings compatible with benign hemangioma. Findings stable. ASSESSMENT: 1. Abdominal pain with possible ileus noted on CT scan 2. Bleeding from the umbilicus 3. Acute kidney injury 4. Diabetes mellitus 5. History of A-fib on Eliquis at home 6. History of renal cancer status post ablation in 2019 PLAN: -Start clear liquid diet -Continue IV fluids -Encourage patient to ambulate -Hold Eliquis -Further recommendations forthcoming per surgeon Physician Head Holder note has been reviewed by physician. Signing provider agrees with the documented findings, assessment, and plan of care. Past Medical History Past Medical History: Atrial Fibrillation, Heart Failure, Diabetes Mellitus Additional Past Medical History / Comment(s): Renal Cancer, blood clot in heart (2019) History of Any Multi-Drug Resistant Organisms: None Reported Past Surgical History: Cardiac Ablation, Orthopedic Surgery Past Psychological History: No Psychological Hx Reported Smoking Status: Never smoker Past Alcohol Use History: None Reported Past Drug Use History: None Reported Medications and Allergies Home Medications Medication Instructions Recorded Confirmed Type Apixaban [Eliquis] 5 mg PO BID 05/25/23 08/14/24 History Cholecalciferol [Vitamin D3 (25 25 mcg PO DAILY 05/25/23 08/14/24 History Mcg = 1000 Iu)] Cyanocobalamin (Vitamin B-12) 1,000 mcg PO DAILY 05/25/23 08/14/24 History [Vitamin B-12] Empagliflozin [Jardiance] 25 mg PO DAILY 05/25/23 08/14/24 History Fish Oil/Dha/Epa [Fish Oil 1,200 1 cap PO DAILY 05/25/23 08/14/24 History mg Fish Oil] Metoprolol Succinate (ER) [Toprol 50 mg PO DAILY 05/25/23 08/14/24 History XL] hydrOXYzine pamoate [Vistaril] 25 mg PO QID PRN 05/25/23 08/14/24 History PARoxetine [Paxil] 20 mg PO DAILY 08/14/23 08/14/24 History Insulin Aspart Prot/Insuln Asp 16 - 20 unit SQ AC-SUPPER 08/14/24 08/14/24 History [NovoLOG MIX 70-30 Flexpen] Tirzepatide [Mounjaro] 10 mg SQ MO 08/14/24 08/14/24 History Allergies Allergy/AdvReac Type Severity Reaction Status Date / Time amoxicillin Allergy Rash/Hives Verified 08/14/24 19:16 clavulanic acid Allergy Rash/Hives Verified 08/14/24 19:16 [From Augmentin] Surgical - Exam Vital Signs Temp Pulse Resp BP Pulse Ox 97.9 F 125 H 22 117/78 97 08/14/24 15:32 08/14/24 15:32 08/14/24 15:32 08/14/24 15:32 08/14/24 15:32 Results - Labs 08/15/24 07:26 08/15/24 07:26 Abnormal Lab Results - Last 24 Hours (Table) 08/14/24 08/14/24 08/14/24 Range/Units 17:20 17:20 17:20 RBC (4.30-5.90) m/uL Hgb (13.0-17.5) gm/dL Hct (39.0-53.0) % Neutrophils # (1.3-7.7) k/uL PT 9.6 L (10.0-12.5) sec Creatinine 1.78 H (0.66-1.25) mg/dL Glucose 288 H (74-99) mg/dL Plasma Lactic Acid Prudencio 2.1 H* (0.7-2.0) mmol/L Calcium 10.4 H (8.4-10.2) mg/dL ALT 65 H (4-49) U/L Total Protein 8.6 H (6.3-8.2) g/dL Albumin 5.2 H (3.5-5.0) g/dL Urine Glucose (UA) (Negative) 08/14/24 08/15/24 Range/Units 17:32 08:23 RBC 6.04 H (4.30-5.90) m/uL Hgb 18.3 H (13.0-17.5) gm/dL Hct 54.3 H (39.0-53.0) % Neutrophils # 8.1 H (1.3-7.7) k/uL PT (10.0-12.5) sec Creatinine (0.66-1.25) mg/dL Glucose (74-99) mg/dL Plasma Lactic Acid Prudencio (0.7-2.0) mmol/L Calcium (8.4-10.2) mg/dL ALT (4-49) U/L Total Protein (6.3-8.2) g/dL Albumin (3.5-5.0) g/dL Urine Glucose (UA) 4+ H (Negative) Diabetes panel 08/14/24 Range/Units 17:20 Sodium 142 (137-145) mmol/L Potassium 4.4 (3.5-5.1) mmol/L Chloride 107 (98-107) mmol/L Carbon Dioxide 24 (22-30) mmol/L BUN 18 (9-20) mg/dL Creatinine 1.78 H (0.66-1.25) mg/dL Glucose 288 H (74-99) mg/dL Calcium 10.4 H (8.4-10.2) mg/dL AST 50 (17-59) U/L ALT 65 H (4-49) U/L Alkaline Phosphatase 124 (38-126) U/L Total Protein 8.6 H (6.3-8.2) g/dL Albumin 5.2 H (3.5-5.0) g/dL Calcium panel 08/14/24 Range/Units 17:20 Calcium 10.4 H (8.4-10.2) mg/dL Albumin 5.2 H (3.5-5.0) g/dL Pituitary panel 08/14/24 Range/Units 17:20 Sodium 142 (137-145) mmol/L Potassium 4.4 (3.5-5.1) mmol/L Chloride 107 (98-107) mmol/L Carbon Dioxide 24 (22-30) mmol/L BUN 18 (9-20) mg/dL Creatinine 1.78 H (0.66-1.25) mg/dL Glucose 288 H (74-99) mg/dL Calcium 10.4 H (8.4-10.2) mg/dL Adrenal panel 08/14/24 Range/Units 17:20 Sodium 142 (137-145) mmol/L Potassium 4.4 (3.5-5.1) mmol/L Chloride 107 (98-107) mmol/L Carbon Dioxide 24 (22-30) mmol/L BUN 18 (9-20) mg/dL Creatinine 1.78 H (0.66-1.25) mg/dL Glucose 288 H (74-99) mg/dL Calcium 10.4 H (8.4-10.2) mg/dL Total Bilirubin 0.9 (0.2-1.3) mg/dL AST 50 (17-59) U/L ALT 65 H (4-49) U/L Alkaline Phosphatase 124 (38-126) U/L Total Protein 8.6 H (6.3-8.2) g/dL Albumin 5.2 H (3.5-5.0) g/dL
[2024-08-15] MEDS ORDERED: traMADol 50 MG TAB PO PRN (12:52)
--- NOTE | 2024-08-15 14:42 | P.HPIM ---
History of Present Illness H&P Date: 08/15/24 Patient is a 48-year-old male with a past medical history of atrial fibrillation maintained on Eliquis, heart failure, and diabetes mellitus who presented with diffuse abdominal pain and intermittent bleeding from his umbilicus for 4 days. He reports that most of his pain is around his umbilicus but also has mild diffuse pain. He describes his pain as sharp and 5/10. He has a history of laparoscopic cholecystectomy in May 2023 as well as renal cancer in 2019 treated with ablation at [facility]. At the time of arrival to the hospital he reports chest pain, dyspnea, self-reported fevers, nausea, diarrheastates this is his normal since cholecystectomy in 2022. He currently is without chest p ain, dyspnea. CT abdomen/pelvis: Small bowel dilation without definitive transition point, correlate for ileus, hepatic dome lesion with peripheral nodular discontinuous enhancement lesion near the capsule measuring 28 mmmost compatible with a benign hemangioma. Chest x-ray: No acute cardiopulmonary disease/process. EKG shows: Sinus tachycardia with left axis deviation. WBCs 10.5, hemoglobin 18.3, hematocrit 54.3, sodium 142, potassium 4.4, creatinine 1.78, GFR 45, lactic acid 2.1, AST 50, ALT 65, alkaline phosphatase 124, troponin <0.012 x 2. Urinalysis negative. Afebrile, normotensive, initially tachycardic with pulse 125now high 70s-90s, saturating well on room air. ED documentation reviewed. Review of systems: Pertinent positives and negatives as discussed in HPI, a complete review of systems was performed and all other systems are negative. Social history: Tobacco: Denies Alcohol: Rarely Recreational drugs: Denies Physical examination: Vital signs are reviewed. General: No acute distress. AOx4. HEENT: Head exam is unremarkable. EOMI bilaterally. ACs patent. Nares patent. Lungs: Bilateral breath sounds present; no rhonchi, wheezes, or rales. Heart: Rate and rhythm are regular. S1-S2 present. No murmur/rub/gallops. Abdomen: Soft, mild diffuse tenderness, nondistended. Tenderness to palpation of the umbilicus. Dried blood in the umbilicus noted. Bowel sounds present. Extremities: No edema present. Symmetric movement. Psych: Normal affect and mood. Cooperative. Assessment/Plan: Sepsis, improving Sepsis criteria met due to tachycardia, tachypnea, and lactic acidosis (2.1 down to 1) Started on Zosyn Ileus Surgery consulted Clear liquid diet per surgery Paroxysmal atrial fibrillation Hold Eliquis per surgery Acute kidney injury, unknown etiology-improving Hold Jardiance Hypertension Resume home medications Diabetes mellitus type 2 Monitor glucose 16 units NovoLog 70/30 nightly CHF with EF 50% DVT prophylaxis: Eliquis Chronic conditions: Hypertension, diabetes mellitus, hyperlipidemia, history of renal cancer The patient is admitted with an anticipated less than than 2 midnight stay for evaluation of abdominal pain CODE STATUS: Full code Discussed with: Patient Anticipated discharge place: Home Past Medical History Past Medical History: Atrial Fibrillation, Heart Failure, Diabetes Mellitus Additional Past Medical History / Comment(s): Renal Cancer, blood clot in heart History of Any Multi-Drug Resistant Organisms: None Reported Past Surgical History: Cardiac Ablation, Orthopedic Surgery Past Psychological History: No Psychological Hx Reported Smoking Status: Former smoker Past Alcohol Use History: None Reported Past Drug Use History: None Reported Medications and Allergies Home Medications Medication Instructions Recorded Confirmed Type Apixaban [Eliquis] 5 mg PO BID 05/25/23 08/14/24 History Cholecalciferol [Vitamin D3 (25 25 mcg PO DAILY 05/25/23 08/14/24 History Mcg = 1000 Iu)] Cyanocobalamin (Vitamin B-12) 1,000 mcg PO DAILY 05/25/23 08/14/24 History [Vitamin B-12] Empagliflozin [Jardiance] 25 mg PO DAILY 05/25/23 08/14/24 History Fish Oil/Dha/Epa [Fish Oil 1,200 1 cap PO DAILY 05/25/23 08/14/24 History mg Fish Oil] Metoprolol Succinate (ER) [Toprol 50 mg PO DAILY 05/25/23 08/14/24 History XL] hydrOXYzine pamoate [Vistaril] 25 mg PO QID PRN 05/25/23 08/14/24 History PARoxetine [Paxil] 20 mg PO DAILY 08/14/23 08/14/24 History Insulin Aspart Prot/Insuln Asp 16 - 20 unit SQ AC-SUPPER 08/14/24 08/14/24 History [NovoLOG MIX 70-30 Flexpen] Tirzepatide [Mounjaro] 10 mg SQ MO 08/14/24 08/14/24 History Allergies Allergy/AdvReac Type Severity Reaction Status Date / Time amoxicillin Allergy Rash/Hives Verified 08/14/24 19:16 clavulanic acid Allergy Rash/Hives Verified 08/14/24 19:16 [From Augmentin] Physical Exam Vitals: Vital Signs Temp Pulse Pulse Resp BP BP Pulse Ox 08/15/24 08:45 97.9 F 67 18 135/88 97 08/15/24 04:19 68 18 125/89 98 08/15/24 02:04 79 18 136/96 98 08/14/24 23:15 78 17 129/74 98 08/14/24 20:51 90 18 140/100 99 08/14/24 19:42 100 18 120/88 100 08/14/24 15:32 97.9 F 125 H 22 117/78 97 Intake and Output 08/14/24 08/15/24 08/15/24 22:59 06:59 14:59 Other: Weight 97.522 kg Results CBC & Chem 7: 08/15/24 07:26 08/15/24 07:26 Labs: Abnormal Lab Results - Last 24 Hours (Table) 08/14/24 08/14/24 08/14/24 Range/Units 17:20 17:20 17:20 RBC (4.30-5.90) m/uL Hgb (13.0-17.5) gm/dL Hct (39.0-53.0) % Neutrophils # (1.3-7.7) k/uL PT 9.6 L (10.0-12.5) sec Creatinine 1.78 H (0.66-1.25) mg/dL Glucose 288 H (74-99) mg/dL Plasma Lactic Acid Prudencio 2.1 H* (0.7-2.0) mmol/L Calcium 10.4 H (8.4-10.2) mg/dL ALT 65 H (4-49) U/L Total Protein 8.6 H (6.3-8.2) g/dL Albumin 5.2 H (3.5-5.0) g/dL Urine Glucose (UA) (Negative) 08/14/24 08/15/24 Range/Units 17:32 08:23 RBC 6.04 H (4.30-5.90) m/uL Hgb 18.3 H (13.0-17.5) gm/dL Hct 54.3 H (39.0-53.0) % Neutrophils # 8.1 H (1.3-7.7) k/uL PT (10.0-12.5) sec Creatinine (0.66-1.25) mg/dL Glucose (74-99) mg/dL Plasma Lactic Acid Prudencio (0.7-2.0) mmol/L Calcium (8.4-10.2) mg/dL ALT (4-49) U/L Total Protein (6.3-8.2) g/dL Albumin (3.5-5.0) g/dL Urine Glucose (UA) 4+ H (Negative)
[2024-08-15 17:02] LABS: Glucose,Whole Blood 93 mg/dL (70-110)
[2024-08-15] MEDS ORDERED: INSULIN ASPART (NovoLOG) 100 UNIT/ML VIAL SQ SCH (17:30)
[2024-08-15] MEDS: INSULN ASP PRT/INSULIN ASPART 100 UNIT/ML 10 ML VIAL SQ SCH (17:42)
[2024-08-15 20:38] LABS: Glucose,Whole Blood 119 mg/dL (70-110)
[2024-08-16] MEDS ORDERED: SODIUM CHLORIDE 0.9% 1,000 ML BAG ONE (03:00)
[2024-08-16 05:54] VITALS: RESP 16
[2024-08-16 07:04] LABS: Glucose,Whole Blood 106 mg/dL (70-110)
[2024-08-16 08:32] VITALS: TEMP 97.8
--- NOTE | 2024-08-16 09:58 | CDI ---
Documentation Clarification Form Date: 08/16/2024 09:30:48 AM From: Candace Rajan RN CCDS Phone: [phone] Admit Date: 08/14/2024 08:03:00 PM Patient Name: Ev Giraldo Visit Number: [id number] Discharge Date: ATTENTION: The Clinical Documentation Specialists (CDI) and [facility] Coding Staff appreciate your assistance in clarifying documentation. Please respond to the clarification below the line at the bottom and electronically sign. The CDI & [facility] Coding staff will review the response and follow-up if needed. Please note: Queries are made part of the Legal Health Record. If you have any questions, please contact the author of this message via ITS. Doctor: Ruperto Gan Sepsis is documented in the , 08/15 which may lack sufficient clinical evidence/support in the medical record. Additional clarification is requested. History/Risk Factors: 48 year old male presents to the ED with diffuse abdominal pain and intermittent bleeding from his umbilicus for four days. Medical History: Atrial fibrillation, Heart failure, HTN and DM2. HP, 08/15. Clinical Indicators: VSS, 08/14: B/P 117/78; HR 125; Temp 97.9F Oral; RR 22 CT ABD, 08/14: Small bowel dilation without definitive transition point. Correlate for ileus consider dedicated small bowel follow-through. LABS, 08/14: Wbc 10.5; Lactic acidosis 2.1 HP, 08/15: Sepsis criteria met due to tachycardia, tachypnea and lactic acidosis Treatment: 08/14 Zosyn IVPB x 1; 08/14 0.9NS 500mls x 4 bags After work up and study, please clarify which diagnosis is most appropriate? [ x ] Sepsis ruled out [ ] Sepsis treated prophylactically [ ] Sepsis is a valid diagnosis related to: (Please indicate infection source): [ ] Non-Infectious SIRS due to (please specify) [ ] Non-infectious SIRS due to with organ dysfunction as evidenced by [list organ dysfunction] [ ] Other, please specify [ ] Unable to determine SIRS Criteria: 2 or more of the following may indicate SIRS Temperature < 96.8F (36C) or > 101.0F (38.3C) Heart Rate > 90 bpm Respiratory Rate > 20 breaths/min or PaCO2 < 32 mmHg White Blood Cell Count > 12,000 or < 4,000 cells/mm3 or > 10% bands (Template Last Reviewed: November 2023) MTDD
[2024-08-16 11:00] LABS: Basophils # (A) 0.05 X 10*3/uL (0.00-0.10); Basophils % (A) 0.6 %; Eosinophils # (A) 0.13 X 10*3/uL (0.04-0.35); Eosinophils % (A) 1.6 %; HCT 44.6 % (39.6-50.0); HGB 15.2 g/dL (13.0-17.0); Lymphocytes # (A) 2.74 X 10*3/uL (0.90-5.00); Lymphocytes % (A) 33.3 %; MCH 29.9 pg (27.0-32.0); MCHC 34.1 g/dL (32.0-37.0); MCV 87.8 FL (80.0-97.0); Mean Platelet Volume 10.5 FL (9.5-12.2); Monocytes % (A) 6.1 %; NRBC Per 100 WBC 0 X 10*3/uL (0.00-0.01); Neutrophils % (A) 58.2 %; Platelet Count 202 X 10*3/uL (140-440); RBC 5.08 X 10*6/uL (4.40-5.60); RDW 12.7 % (11.5-14.5); WBC 8.24 X 10*3/uL (4.50-10.00)
[2024-08-16 11:06] LABS: BUN/Creat Ratio 10.67 Ratio (12.00-20.00); Blood Urea Nitrogen 12.8 mg/dL (9.0-27.0); Calcium 8.7 mg/dL (8.7-10.3); Carbon Dioxide 19.2 mmol/L (21.6-31.8); Chloride 107 mmol/L (96-109); Glucose 93 mg/dL (70-110); Potassium 4.3 mmol/L (3.5-5.5); Sodium 140 mmol/L (135-145)
[2024-08-16 11:19] LABS: Glucose,Whole Blood 145 mg/dL (70-110)
--- NOTE | 2024-08-16 13:35 | P.PN ---
Subjective Progress Note Date: 08/16/24 CHIEF COMPLAINT: Abdominal pain HISTORY OF PRESENT ILLNESS: Patient reports abdominal pain improving. He tolerated the clear liquids. Denies any nausea or vomiting. Denies any further bleeding from the umbilicus. Afebrile. WBC 8.24 Hgb 15.2 platelets 202 sodium 140 potassium 4.3 creatinine 1.2 Patient seen and examined with Dr. Robert PHYSICAL EXAM: VITAL SIGNS: Reviewed GENERAL: Well-developed in no acute distress. HEENT: No sclera icterus. Extraocular movements grossly intact. Moist buccal mucosa. Head is atraumatic, normocephalic. Hears conversational speech. No nasal drainage. NECK: Supple without lymphadenopathy. CHEST: Non-labored respirations and equal bilateral excursions. CARDIOVASCULAR: Palpable 2+ radial pulses. ABDOMEN: Soft. Nondistended. Minimal discomfort with palpation diffuse. Umbilicus dried blood MUSCULOSKELETAL: No clubbing or cyanosis. NEUROLOGIC: No focal or lateralizing signs. Cranial nerves II through XII grossly intact. PSYCH: Appropriate affect. Alert and oriented to person, place and time. SKIN: Well perfused. Good skin turgor. ASSESSMENT: 1. Abdominal pain likely due to possible ileus 2. Urachal cyst with intermittent bleeding from the umbilicus. Bleeding currently now resolved 3. Acute kidney injury 4. Diabetes mellitus 5. History of A-fib on Eliquis at home 6. History of renal cancer status post ablation in 2019 PLAN: -Advance diet to regular -Patient can be discharged from surgical standpoint if tolerating diet -Okay to resume Eliquis -Recommend outpatient follow-up regarding urachal cyst Physician Motor Vehicle Operator Road Supervisor note has been reviewed by physician. Signing provider agrees with the documented findings, assessment, and plan of care. Objective - Vital Signs Vital signs: Vital Signs Temp 97.8 F 08/16/24 07:05 Pulse 64 08/16/24 07:05 Resp 16 08/16/24 07:05 BP 158/95 08/16/24 07:05 Pulse Ox 98 08/16/24 07:05 FiO2 Intake & Output 08/15/24 08/16/24 08/16/24 18:59 06:59 18:59 Intake Total 1140 560 Balance 1140 560 Weight 97.522 kg Intake: Oral 1140 560 Other: # Voids 2 - Labs CBC & Chem 7: 08/16/24 04:12 08/16/24 04:12 Labs: Abnormal Lab Results - Last 24 Hours (Table) 08/15/24 08/16/24 08/16/24 Range/Units 20:34 04:12 11:17 Carbon Dioxide 19.2 L (21.6-31.8) mmol/L Anion Gap 13.80 H (4.00-12.00) mmol/L BUN/Creatinine Ratio 10.67 L (12.00-20.00) Ratio POC Glucose (mg/dL) 119 H 145 H (70-110) mg/dL Microbiology - Last 24 Hours (Table) 08/14/24 18:27 Blood Culture - Preliminary Blood
[2024-08-16 14:29] VITALS: BP 138/80; PULSE 60
--- NOTE | 2024-08-16 14:31 | P.PN ---
Subjective Progress Note Date: 08/16/24 Patient is a 48-year-old male with a past medical history of atrial fibrillation maintained on Eliquis, heart failure, and diabetes mellitus who presented with diffuse abdominal pain and intermittent bleeding from his umbilicus for 4 days. He reports that most of his pain is around his umbilicus but also has mild diffuse pain. He describes his pain as sharp and 5/10. He has a history of laparoscopic cholecystectomy in May 2023 as well as renal cancer in 2019 treated with ablation at [facility]. At the time of arrival to the hospital he reports chest pain, dyspnea, self-reported fevers, nausea, diarrheastates this is his normal since cholecystectomy in 2022. He currently is without chest pain, dyspnea. CT abdomen/pelvis: Small bowel dilation without definitive transition point, correlate for ileus, hepatic dome lesion with peripheral nodular discontinuous enhancement lesion near the capsule measuring 28 mmmost compatible with a benign hemangioma. Chest x-ray: No acute cardiopulmonary disease/process. EKG shows: Sinus tachycardia with left axis deviation. WBCs 10.5, hemoglobin 18.3, hematocrit 54.3, sodium 142, potassium 4.4, creatinine 1.78, GFR 45, lactic acid 2.1, AST 50, ALT 65, alkaline phosphatase 124, troponin <0.012 x 2. Urinalysis negative. Afebrile, normotensive, initially tachycardic with pulse 125now high 70s-90s, saturating well on room air. 08/16. Patient seen and examined lying in bed. Endorses improved abdominal pain. Review of systems: Pertinent positives and negatives as discussed in HPI, a complete review of systems was performed and all other systems are negative. Physical examination: Vital signs are reviewed. General: No acute distress. AOx4. HEENT: Head exam is unremarkable. EOMI bilaterally. ACs patent. Nares patent. Lungs: Bilateral breath sounds present; no rhonchi, wheezes, or rales. Heart: Rate and rhythm are regular. S1-S2 present. No murmur/rub/gallops. Abdomen: Soft, mild diffuse tenderness, nondistended. Tenderness to palpation of the umbilicus. Dried blood in the umbilicus noted. Bowel sounds present. Extremities: No edema present. Symmetric movement. Psych: Normal affect and mood. Cooperative. Assessment/Plan: Lactic acidosis, resolved Ileus Surgery consulted Regular diet per surgery Paroxysmal atrial fibrillation Hold Eliquis per surgery Acute kidney injury, unknown etiology-improving Hold Jardiance Hypertension Resume home medications Diabetes mellitus type 2 Monitor glucose 16 units NovoLog 70/30 nightly CHF with EF 50% DVT prophylaxis: Eliquis Chronic conditions: Hypertension, diabetes mellitus, hyperlipidemia, history of renal cancer Dr. Malik MD I have performed a history and physical examination and medical decision making of this patient, discussed the same with the the resident, and agree with the assessment and plan as written. I performed brief physical exam. Objective - Vital Signs Vital signs: Vital Signs Temp 98.2 F 08/16/24 01:30 Pulse 74 08/16/24 01:30 Resp 16 08/16/24 01:30 BP 158/106 08/16/24 01:30 Pulse Ox 97 08/16/24 01:30 FiO2 Intake & Output 08/15/24 08/16/24 08/16/24 18:59 06:59 18:59 Intake Total 1140 Balance 1140 Weight 97.522 kg Intake: Oral 1140 Other: # Voids 2 - Labs CBC & Chem 7: 08/16/24 04:12 08/16/24 04:12 Labs: Abnormal Lab Results - Last 24 Hours (Table) 08/15/24 08/15/24 08/15/24 Range/Units 07:26 07:26 08:23 WBC 10.44 H (4.50-10.00) X 10*3/uL Chloride 110 H (96-109) mmol/L Carbon Dioxide 19.7 L (21.6-31.8) mmol/L Anion Gap 13.30 H (4.00-12.00) mmol/L BUN/Creatinine Ratio 9.93 L (12.00-20.00) Ratio POC Glucose (mg/dL) (70-110) mg/dL Calcium 8.6 L (8.7-10.3) mg/dL Urine Glucose (UA) 4+ H (Negative) 08/15/24 Range/Units 20:34 WBC (4.50-10.00) X 10*3/uL Chloride (96-109) mmol/L Carbon Dioxide (21.6-31.8) mmol/L Anion Gap (4.00-12.00) mmol/L BUN/Creatinine Ratio (12.00-20.00) Ratio POC Glucose (mg/dL) 119 H (70-110) mg/dL Calcium (8.7-10.3) mg/dL Urine Glucose (UA) (Negative) Microbiology - Last 24 Hours (Table) 08/14/24 18:27 Blood Culture - Preliminary Blood
[2024-08-16] MEDS ORDERED: APIXABAN 5 MG TAB PO SCH (21:00)
== END 2024-08-16 16:37 | disposition home or self-care (01) | DRG 469 ==
LOC: EC 15:06 → 5NMEDONC 20:03
PROVIDERS: ADMIT Hospitalist; ATTEND Hospitalist
DX: N17.9 Acute kidney failure, unspecified (principal); K56.7 Ileus, unspecified; Q64.4 Malformation of urachus; E11.9 Type 2 diabetes mellitus without complications; Z79.4 Long term (current) use of insulin; E78.5 Hyperlipidemia, unspecified; E87.20 Acidosis, unspecified; G89.29 Other chronic pain; Z79.891 Long term (current) use of opiate analgesic; I11.0 Hypertensive heart disease with heart failure; I48.0 Paroxysmal atrial fibrillation; I50.9 Heart failure, unspecified; Z79.01 Long term (current) use of anticoagulants; Z79.84 Long term (current) use of oral hypoglycemic drugs; Z79.899 Other long term (current) drug therapy; Z85.528 Personal history of other malignant neoplasm of kidney; Z87.891 Personal history of nicotine dependence; Z88.0 Allergy status to penicillin; Z88.8 Allergy status to other drugs, medicaments and biological substances
CPT/HCPCS: 36415; 71046; 74177; 80048; 80053; 81003; 82150; 83605; 83690; 84145; 84484; 85025; 85610; 85730; 87040; 93005; 96361; 96365; 96375; 99291